=== PATIENT | female | born 1940 | race Caucasian/White ===

== ENCOUNTER → 2017-04-20 | Outpatient (CLI) | payer MEDICARE, OTHER ==
--- NOTE | 2017-04-20 23:11 | MR ---
EXAMINATION TYPE: MR lumbar spine wo/w con DATE OF EXAM: 04/20/2017 COMPARISON: NONE HISTORY: Pain, Disc degeneration TECHNIQUE: Multiplanar, multisequence images of the lumbar spine were acquired utilizing [address] gadolinium contrast. The lumbar vertebra have normal alignment. There is narrowing of disc spaces throughout the lumbar sp ine and more severe at levels from L3 to S1. There is rudimentary S1-S2 disc. There are posterior dis c herniations and disc bulging at L3-4 L4-5. There is a mild lateral recess stenosis at L3-4 and L4-5 . There is also posterior disc bulging at L2-3. There is no compression fracture. There is no lumbar paraspinal mass. The posterior elements appear intact. There is some mild epidural enhancement associ ated with the L5-S1 facet joint on the left side. This is consistent with scarring. There is some lat eral recess stenosis at L5-S1 on the left side and significant neural foraminal impingement. I see no significant impingement on the right side. IMPRESSION: Moderate multilevel spondylosis. There is lateral recess stenosis at L5-S1 and significant neural for aminal impingement on the left side at L5-S1. Epidural scarring and enhancement at L5-S1. No signific ant spinal stenosis.
== END | disposition home or self-care (01) ==
LOC: RADMRIMAIN 14:12
PROVIDERS: ATTEND Internal Medicine Rheumatology
DX: M48.07 Spinal stenosis, lumbosacral region (principal); M47.816 Spondylosis without myelopathy or radiculopathy, lumbar region; M53.87 Other specified dorsopathies, lumbosacral region
CPT/HCPCS: 72158; A9581

== ENCOUNTER → 2017-04-25 | Outpatient (CLI) | payer MEDICARE, OTHER ==
[2017-04-25 13:23] LABS: ALT 20 U/L (9-52); AST 25 U/L (14-36); Creatine Kinase 61 U/L (30-135)
== END | disposition home or self-care (01) ==
LOC: LABWHC1 12:26
PROVIDERS: ATTEND Internal Medicine
DX: E78.5 Hyperlipidemia, unspecified (principal)
CPT/HCPCS: 36415; 82550; 84450; 84460

== ENCOUNTER → 2017-08-11 | Outpatient (CLI) | payer MEDICARE, OTHER ==
--- NOTE | 2017-08-15 10:08 | MM ---
Reason for exam: screening (asymptomatic). Last mammogram was performed 1 year and 3 months ago. History: Patient is postmenopausal. Lumpectomy of the right breast, August 05, 2016. Took unspecified hormones for 1 year. Physical Findings: A clinical breast exam by your physician is recommended on an annual basis and results should be correlated with mammographic findings. MG 3D Screening Mammo W/Cad Bilateral CC and MLO view(s) were taken. Prior study comparison: May 10, 2016, mammogram. There are scattered fibroglandular densities. No significant changes when compared with prior studies. ASSESSMENT: Benign, BI-RAD 2 RECOMMENDATION: Routine screening mammogram of both breasts in 1 year.
== END | disposition home or self-care (01) ==
LOC: RADMAMWWP 10:59
PROVIDERS: ATTEND Surgery
DX: Z12.31 Encounter for screening mammogram for malignant neoplasm of breast (principal)
CPT/HCPCS: 77063; 77067

== ENCOUNTER → 2018-04-05 | Outpatient (CLI) | payer MEDICARE, OTHER ==
[2018-04-05 13:30] LABS: HCT 41.3 % (34.0-46.0); MCHC 31.5 g/dL (31.0-37.0); Mean Platelet Volume 5.8; Platelet Count 399 k/uL (150-450); RBC 4.49 m/uL (3.80-5.40); RDW 13.7 % (11.5-15.5); WBC 12.2 k/uL (3.8-10.6)
[2018-04-05 14:21] LABS: Band Neutrophils % 1 %; Basophils # (M) 0.12 k/uL (0-0.2); Eosinophils # (M) 0.37 k/uL (0-0.7); Lymphocytes # (M) 2.68 k/uL (1.0-4.8); Metamyelocytes # (M) 0.12 k/uL (0); Metamyelocytes % 1 %; Monocytes # (M) 0.61 k/uL (0-1.0); Myelocytes # (M) 0.24 k/uL (0); Myelocytes % 2 %; Neutrophils % (M) 67 %; Nucleated Red Blood Cells 0 /100 WBC (0-0); Total Cells Counted 200
[2018-04-05 17:01] LABS: Albumin/Globulin Ratio 2.11 (1.60-3.17); Calcium 9.2 mg/dL (8.7-10.3); Globulin 1.9 g/dL (1.6-3.3); Potassium 4.5 mmol/L (3.5-5.5); Total Bilirubin 0.5 mg/dL (0.2-1.2); Total Protein 5.9 g/dL (6.2-8.2)
== END | disposition home or self-care (01) ==
LOC: LABWHC1 11:18
PROVIDERS: ATTEND Family Medicine
DX: E11.9 Type 2 diabetes mellitus without complications (principal); I25.10 Atherosclerotic heart disease of native coronary artery without angina pectoris; J18.9 Pneumonia, unspecified organism; E55.9 Vitamin D deficiency, unspecified
CPT/HCPCS: 36415; 80053; 80061; 82043; 82570; 85025

== ENCOUNTER → 2018-04-12 | Outpatient (CLI) | payer MEDICARE, OTHER ==
--- NOTE | 2018-04-12 12:55 | XR ---
EXAMINATION TYPE: XR chest 2V DATE OF EXAM: 04/12/2018 COMPARISON: NONE HISTORY: Pneumonia, follow-up TECHNIQUE: Frontal and lateral views of the chest are obtained. FINDINGS: The patient is rotated. Calcified nodules are present within the right lung. Biapical pleur al thickening is noted. Patient is post median sternotomy. Aorta is dense. Heart size within normal l imits. No evident airspace disease, pneumothorax, or pleural effusion. Surgical clips are present in the upper abdomen. Prominent lung volumes suggest underlying COPD. There are coronary artery calcific ations. IMPRESSION: No acute cardiopulmonary process. Postop changes, coronary artery disease, old granuloma tous disease.
== END ==
LOC: RADXRMAIN 10:49
PROVIDERS: ATTEND Family Medicine
DX: J18.9 Pneumonia, unspecified organism (principal); I25.10 Atherosclerotic heart disease of native coronary artery without angina pectoris
CPT/HCPCS: 71046

== ENCOUNTER → 2018-08-14 | Outpatient (CLI) | payer MEDICARE, OTHER ==
--- NOTE | 2018-08-14 14:35 | MM ---
Reason for exam: additional evaluation requested from prior study. Last mammogram was performed 1 year ago. History: Patient is postmenopausal. Lumpectomy of the right breast, August 05, 2016. Took unspecified hormones for 1 year. Physical Findings: Nurse did not find any significant physical abnormalities on exam. MG 3D Diag Mammo W/Cad [facility] Bilateral CC and MLO view(s) were taken. Prior study comparison: August 11, 2017, bilateral MG 3d screening mammo w/cad. May 10, 2016, mammogram. There are scattered fibroglandular densities. Improving post surgical and post therapy changes in the right breast with a residual oil cyst. No significant new findings when compared with previous films. These results were verbally communicated with the patient and result sheet given to the patient on 08/14/18. ASSESSMENT: Benign, BI-RAD 2 RECOMMENDATION: Follow-up diagnostic mammogram of both breasts in 1 year.
== END | disposition home or self-care (01) ==
LOC: RADMAMWWP 12:52
DX: C50.911 Malignant neoplasm of unspecified site of right female breast (principal)
CPT/HCPCS: 77066; G0279; 77062

== ENCOUNTER → 2018-09-13 | Outpatient (CLI) | payer MEDICARE, OTHER ==
--- NOTE | 2018-09-13 14:18 | BD ---
EXAMINATION TYPE: Axial Bone Density DATE OF EXAM: 09/13/2018 COMPARISON: NONE CLINICAL HISTORY: C 50.911 Height: 5 FT 1 IN Weight: 157 FRAX RISK QUESTIONS: History of Fracture in Adulthood: YES RISK FACTORS HISTORY OF: Family History of Osteoporosis: YES Postmenopausal woman: TOTAL HYST AGE 49 If Premenopausal, do you have irregular periods: Take estrogen and/or progesterone medications: TOOK PREMARIN FOR 16 YEARS NO LONGER Poor Health: FAIR MEDICATIONS: Prednisone or other steroids: How Long: Thyroid Medications: Which medication: How Long: Osteoporosis Medications: Which medication: How Long: Additional Medications: METOPROLOL, POTASSIUM, GABAPENTIN, LOVASTATIN, CLOPIDOGREL, HYDROCHLOROTHIAZI DE,CYCLOBENZAPINE, CYMBALTA, NITROSTAT, METFORMIN, FEMARA, ASPIRIN, FERROUS, SULFATE, STOOL SOFTENER, VIT D3, LOSARTIN, ZETIA, FLUTICASONE, PRESERVISION, VENTOLIN, SYMBICORT, HYDROXYZINE HCL, METHYLPREDN ISOLONE Additional History: BREAST CANCER 2017 NO CHEMO NO RADIATION EXAM MEASUREMENTS: Bone mineral densitometry was performed using the [employer] System. Bone mineral density as measured about the Lumbar spine is: ----- L1-L4(G/cm2): 1.152 T Score Values are as follows: ----- L2: -2.8 ----- L3: 0.9 ----- L4: 3.1 ----- L1-L4: -0.2 PREV DONE IN [place] Bone mineral density about the R hip (g/cm2): 0.765 Bone mineral density about the L hip (g/cm2): 0.709 T Score values are as follows: -----R Neck: -2.0 -----L Neck: -2.4 -----R Total: -1.5 -----L Total: -1.9 PREV [place] IMPRESSION: Osteopenia (T Score between -2.5 and -1). Values approach osteoporosis with regards to the left femor al neck. There is slightly increased risk of fracture and the patient may be considered for treatment. Re-Screen 2-5 years. NOTE: T-SCORE=SD OF THE YOUNG ADULT MEAN.
== END | disposition home or self-care (01) ==
LOC: RADBDWWP 13:00
PROVIDERS: ATTEND Internal Medicine
DX: M85.88 Other specified disorders of bone density and structure, other site (principal); C50.911 Malignant neoplasm of unspecified site of right female breast; Z78.0 Asymptomatic menopausal state
CPT/HCPCS: 77080

== ENCOUNTER → 2018-11-01 | Outpatient (CLI) | payer MEDICARE, OTHER | END | disposition home or self-care (01) | LOC: LABWHC1 13:46 | PROVIDERS: ATTEND Internal Medicine Interventional Cardiology | DX: I71.4 Abdominal aortic aneurysm, without rupture (principal); I25.10 Atherosclerotic heart disease of native coronary artery without angina pectoris; Z88.6 Allergy status to analgesic agent | CPT/HCPCS: 36415; 82565; 84520 ==

== ENCOUNTER → 2018-11-04 | Outpatient (CLI) | payer MEDICARE, OTHER ==
--- NOTE | 2018-11-05 08:46 | CT ---
EXAMINATION TYPE: CT angio thor/abd pel aorta DATE OF EXAM: 11/04/2018 9:03 AM COMPARISON: None HISTORY: AAA CT DLP: 484.40 mGycm Automated exposure control for dose reduction was used. TECHNIQUE: Performed with IV Contrast, patient injected with 100 mL of Isovue 370. 3-D reconstructed images performed on a separate computer by the technologist are presented and revie wed. Source images in the axial plane at 5 mm thick sections from above the lung apex to the lower pe lvis are reviewed.. FINDINGS: CT chest: Emphysematous changes are through the bilateral lung del rosario pressure is 1.3 cm nodule withi n the right upper lobe. There is a 0.8 cm posterior right lower lobe nodule. These contain calcificat ion may be granuloma. Portion of the thyroid visualized is normal. No enlarged mediastinal or hilar a denopathy is evident. The ascending thoracic aorta at the level the main pulmonary artery is 3.5 cm. The pulmonary artery the bifurcation is 2.[address] ABDOMEN: There is mild fatty infiltration liver. There may be 0.6 cm cyst within the anterior righ t lobe liver. A 0.8 cm this may be the anterior left lobe liver. Gallbladder surgically absent. The s pleen at this phase of contrast appears normal. Small hiatal hernia may be present. The adrenal gland s are normal. Pancreas is unremarkable. Loops of bowel without oral contrast appear normal. Fecal debris is through the colon. CT PELVIS: Scattered diverticuli are within the sigmoid colon. Urinary bladder is decompressed with l imited evaluation. Uterus and ovaries are not identified. Aorta: The aorta at the aortic root measures 3.3 cm. The aorta at the main pulmonary artery is 3.5 cm . The aorta at the aortic arch measures 2.7 cm. The aorta at the diaphragm measures 2.4 cm. Just infe rior to the renal arteries there is aneurysmal dilatation of the aorta. This has a maximum AP diamete r of 4.0 cm and extends to the bifurcation. Common iliac internal and external iliac common femoral a rteries are patent and normal. Vascular calcifications throughout the arterial system. IMPRESSION: ABDOMINAL AORTIC ANEURYSM BEGINS IN THE INFRARENAL REGION AND EXTENDS TO THE AORTIC BIFURCATION WITH A MAXIMUM AP DIAMETER 4.0 CM. 2. THERE IS SOME MILD FUSIFORM PROMINENCE OF THE MID ASCENDING THORACIC AORTA MEASURING 3.5 CM IN AP DIMENSION. 3. SUSPECTED CALCIFIED GRANULOMA WITHIN THE RIGHT LUNG. 4. SMALL HEPATIC CYSTS.
== END | disposition home or self-care (01) ==
LOC: RADCTMAIN 07:46
PROVIDERS: ATTEND Internal Medicine Interventional Cardiology
DX: I71.4 Abdominal aortic aneurysm, without rupture (principal); K76.89 Other specified diseases of liver; Z88.6 Allergy status to analgesic agent
CPT/HCPCS: 71275; 74174; Q9967

== ENCOUNTER → 2019-02-15 | Outpatient (CLI) | payer MEDICARE, OTHER ==
[2019-02-15 11:31] LABS: Basophils # (A) 0.1 k/uL (0-0.2); Basophils % (A) 1 %; Eosinophils # (A) 0.3 k/uL (0-0.7); Eosinophils % (A) 5 %; HCT 43.8 % (34.0-46.0); HGB 14.5 gm/dL (11.4-16.0); Lymphocytes # (A) 1.7 k/uL (1.0-4.8); Lymphocytes % (A) 30 %; MCH 29.8 pg (25.0-35.0); MCHC 33.1 g/dL (31.0-37.0); Monocytes # (A) 0.5 k/uL (0-1.0); Monocytes % (A) 8 %; Neutrophils # (A) 3.1 k/uL (1.3-7.7); Neutrophils % (A) 53 %; Platelet Count 193 k/uL (150-450); RBC 4.87 m/uL (3.80-5.40); RDW 13.6 % (11.5-15.5); WBC 5.7 k/uL (3.8-10.6)
[2019-02-15 17:11] LABS: Albumin 4.4 g/dL (3.80-4.90); Albumin/Globulin Ratio 2.44 (1.60-3.17); Anion Gap 6.7 mmol/L (4.00-12.00); Calcium 9.8 mg/dL (8.7-10.3); Carbon Dioxide 31.3 mmol/L (21.6-31.8); Globulin 1.8 g/dL (1.6-3.3); Non-African American GFR(CKD) 62.1 (60.0-200.0); Potassium 4.3 mmol/L (3.5-5.5); Total Bilirubin 0.6 mg/dL (0.2-1.2); Total Protein 6.2 g/dL (6.2-8.2)
[2019-02-15 19:01] LABS: Hemoglobin A1C 6.8 % (4.0-6.0)
== END | disposition home or self-care (01) ==
LOC: LABWHC1 10:26
PROVIDERS: ATTEND Family Medicine
DX: E11.9 Type 2 diabetes mellitus without complications (principal)
CPT/HCPCS: 36415; 80053; 83036; 85025

== ENCOUNTER → 2019-08-21 | Outpatient (CLI) | payer MEDICARE, OTHER ==
--- NOTE | 2019-08-22 11:25 | MM ---
Reason for exam: screening (asymptomatic). Last mammogram was performed 1 year ago. History: Patient is postmenopausal and has history of breast cancer at age 76. Lumpectomy of the right breast, August 05, 2016. Took unspecified hormones for 1 year. Physical Findings: A clinical breast exam by your physician is recommended on an annual basis and results should be correlated with mammographic findings. MG 3D Screening Mammo W/Cad Bilateral CC and MLO view(s) were taken. Prior study comparison: August 14, 2018, bilateral MG 3d diag mammo w/cad [facility]. August 11, 2017, bilateral MG 3d screening mammo w/cad. The breast tissue is heterogeneously dense. This may lower the sensitivity of mammography. There is chronic nodularity in the right breast. No significant changes when compared with prior studies. ASSESSMENT: Benign, BI-RAD 2 RECOMMENDATION: Routine screening mammogram of both breasts in 1 year.
== END | disposition home or self-care (01) ==
LOC: RADMAMWWP 10:48
PROVIDERS: ATTEND Internal Medicine
DX: Z12.31 Encounter for screening mammogram for malignant neoplasm of breast (principal); C50.911 Malignant neoplasm of unspecified site of right female breast
CPT/HCPCS: 77063; 77067

== ENCOUNTER → 2020-04-25 | Outpatient (CLI) | payer MEDICARE, OTHER ==
[2020-04-25 08:06] LABS: African American GFR (CKD) >90 (>60 ml/min/1.73 sqM); Blood Urea Nitrogen 18 mg/dL (7-17); Non-African American GFR(CKD) 84 (>60 ml/min/1.73 sqM)
--- NOTE | 2020-04-27 14:51 | CT ---
EXAMINATION TYPE: CT angio thor/abd pel aorta DATE OF EXAM: 04/25/2020 INDICATION: Aortic aneurysm COMPARISON: 11/04/2018 CT DLP: 372.30 mGycm CONTRAST: Performed without Oral Contrast . Patient injected with 100 mL of Isovue 370. TECHNIQUE: Axial images at 5 mm thick sections. Reconstructed images in the coronal plane. Delayed images through the kidneys. 3-D reconstructed images performed on a separate computer by the technol ogist are reviewed. FINDINGS: CT CHEST: Portion of the thyroid visualized is normal. Some right apical thickening is present in the posterior medial portion. There is a nodule within the right upper lung field measuring 1.4 cm present previously and stable may be a granuloma. A addition al 0.9 cm posterior right lung granuloma with calcifications present. Emphysematous type changes appe ar to be present through the bilateral lung del rosario. No enlarged mediastinal or hilar adenopathy is evident. The ascending aorta diameter at the level of the main pulmonary artery is 3.6 cm. The main pulmonary artery diameter at the bifurcation is 2.7 cm. Coronary artery calcification is likely present. Thoracic aorta at the level of the diaphragms 2.[address] ABDOMEN: Contrast timing is for evaluation of the aorta which causes some limitation on the additi onal evaluation of structures. Liver: Small subcortical cyst may be present. Spleen: Normal Pancreas: Normal Adrenal glands: The adrenal glands are normal. Gallbladder: Vertically absent Kidneys: No masses are evident. No hydronephrosis is present. There is a 2.7 cm cyst in the posteri or right kidney. Aorta: Attention is paid to the aorta. Celiac axis and superior mesenteric artery are patent. The danyel iac axis may have calcification and narrowing present. Consider additional evaluation. Plaque is pres ent at the origin of the superior mesenteric artery. 2 renal arteries are present with atheromatous p laquing at the origins. Obvious stenosis is not evident. 0.5 cm below the renal arteries is the beginning of an abdominal aortic aneurysm. This has a maximum AP diameter of 4.5 cm and terminates at the bifurcation. Common iliac vessels have a normal caliber. Internal and external iliac vessels are patent. Iliac vessels to the common femoral arteries are pat ent. Inferior vena cava: Normal. CT PELVIS: Loops of bowel within the abdomen and pelvis are normal. The study is performed without oral cont rast limiting bowel evaluation. There are scattered diverticuli without acute diverticulitis of the s igmoid colon. Appendix: Not identified. No suspicious dilated tubular structure or inflammatory change is evident. Urinary bladder: Normal. Genitourinary structures: Uterus and ovaries are not identified. Osseous structures: No suspicious lytic or sclerotic lesions. Degenerative disc changes are present w ithin the lumbar spine. IMPRESSIONS: 1. Abdominal aortic aneurysm beginning 0.5 cm below the renal arteries and terminates at the bifurcat ion has a maximum AP diameter 4.5 cm. 2. There appears to be a stenosis at the origin of the celiac axis and some narrowing is suspected at the origin of the superior mesenteric artery. 3. Renal and hepatic cysts. 4. Diverticulosis without acute diverticulitis. 5. Right lung calcified granuloma
== END ==
LOC: RADCTMAIN 07:20
PROVIDERS: ATTEND Internal Medicine Interventional Cardiology
DX: I71.4 Abdominal aortic aneurysm, without rupture (principal); N28.1 Cyst of kidney, acquired; Q44.6 Cystic disease of liver; K57.90 Diverticulosis of intestine, part unspecified, without perforation or abscess without bleeding; J84.10 Pulmonary fibrosis, unspecified
CPT/HCPCS: 82565; 84520; 71275; 36415; 74174; Q9967

== ENCOUNTER → 2020-05-30 | Outpatient (CLI) | payer MEDICARE, OTHER ==
[2020-05-30 16:43] LABS: Basophils # (A) 0.08 X 10*3/uL (0.00-0.10); Basophils % (A) 1.3 %; Eosinophils # (A) 0.17 X 10*3/uL (0.04-0.35); Eosinophils % (A) 2.8 %; HCT 42.9 % (37.2-46.3); HGB 14.2 g/dL (12.0-15.0); Lymphocytes # (A) 1.99 X 10*3/uL (0.90-5.00); Lymphocytes % (A) 32.9 %; MCH 30.1 pg (27.0-32.0); MCHC 33.1 g/dL (32.0-37.0); MCV 90.9 fL (80.0-97.0); Mean Platelet Volume 10.8 fL (9.5-12.2); Monocytes # (A) 0.64 X 10*3/uL (0.20-1.00); Monocytes % (A) 10.6 %; Neutrophils # (A) 3.14 X 10*3/uL (1.80-7.70); Neutrophils % (A) 51.9 %; Platelet Count 182 X 10*3/uL (140-440); RBC 4.72 X 10*6/uL (4.10-5.20); RDW 12.8 % (11.5-14.5); WBC 6.05 X 10*3/uL (4.50-10.00)
[2020-05-31 01:50] LABS: African American GFR (CKD) 71.5 (60.0-200.0); Albumin 4.5 g/dL (3.80-4.90); Albumin/Globulin Ratio 2.14 (1.60-3.17); Anion Gap 17.2 mmol/L (4.00-12.00); Carbon Dioxide 21.8 mmol/L (21.6-31.8); Chol/HDL Ratio 5.43; Globulin 2.1 g/dL (1.6-3.3); Non-African American GFR(CKD) 61.7 (60.0-200.0); Potassium 4.1 mmol/L (3.5-5.5); Total Bilirubin 0.4 mg/dL (0.3-1.2); Total Protein 6.6 g/dL (6.2-8.2)
== END | disposition home or self-care (01) ==
LOC: LABWHC1 08:40
PROVIDERS: ATTEND Family Medicine
DX: E55.9 Vitamin D deficiency, unspecified (principal); I71.4 Abdominal aortic aneurysm, without rupture; I25.10 Atherosclerotic heart disease of native coronary artery without angina pectoris; E11.9 Type 2 diabetes mellitus without complications
CPT/HCPCS: 36415; 80053; 80061; 82306; 83036; 83721; 85025

== ENCOUNTER → 2020-08-21 | Outpatient (CLI) | payer MEDICARE, OTHER ==
--- NOTE | 2020-08-22 12:35 | MM ---
Reason for exam: screening (asymptomatic). Last mammogram was performed 1 year ago. History: Patient is postmenopausal and has history of breast cancer at age 76. Lumpectomy of the right breast, August 05, 2016. Took unspecified hormones for 1 year. Physical Findings: A clinical breast exam by your physician is recommended on an annual basis and results should be correlated with mammographic findings. MG 3D Screening Mammo W/Cad Bilateral CC and MLO view(s) were taken. Prior study comparison: August 21, 2019, bilateral MG 3d screening mammo w/cad. August 14, 2018, bilateral MG 3d diag mammo w/cad [facility]. There are scattered fibroglandular densities. ASSESSMENT: Negative, BI-RAD 1 RECOMMENDATION: Routine screening mammogram of both breasts in 1 year.
== END | disposition home or self-care (01) ==
LOC: RADMAMWWP 10:56
PROVIDERS: ATTEND Internal Medicine
DX: Z12.31 Encounter for screening mammogram for malignant neoplasm of breast (principal); C50.911 Malignant neoplasm of unspecified site of right female breast
CPT/HCPCS: 77063; 77067

== ENCOUNTER → 2020-09-16 | Outpatient (CLI) | payer MEDICARE, OTHER ==
--- NOTE | 2020-09-16 14:37 | BD ---
EXAMINATION TYPE: Axial Bone Density DATE OF EXAM: 09/16/2020 COMPARISON: NONE CLINICAL HISTORY: Postmenopausal female Height: 62.5 Weight: 134.2 FRAX RISK QUESTIONS: Alcohol (3 or more units per day): no Family History (Parent hip fracture): no Glucocorticoids (More than 3mos): no (Ex: prednisone, prednisolone, methylprednisolone, dexamethasone, and hydrocortisone). History of Fracture in Adulthood: yes Secondary Osteoporosis: 1. Type 1 Diabetes: no 2. Hyperthyroidism: no 3. Menopause before 45: no 4. Malnutrition: no 5. Chronic liver disease: no Rheumatoid Arthritis: no Current Tobacco Use: no RISK FACTORS HISTORY OF: Surgery to Spine/Hip(right/left)/Wrist (right/left): no Family History of Osteoporosis: yes Active: no Diet low in dairy products/other sources of calcium: yes Postmenopausal woman: 1990 Lost more than 2 inches in height since high school: yes MEDICATIONS: scanned into pacs Additional History: EXAM MEASUREMENTS: Bone mineral densitometry was performed using the [employer] System. Bone mineral density as measured about the Lumbar spine is: ----- L1-L4(G/cm2): 1.173 T Score Values are as follows: ----- L2: -2.8 ----- L3: 0.8 ----- L4: 3.5 ----- L1-L4: -0.1 Bone mineral density has: increased 0.6 % since study of: 09.13.2018 Bone mineral density about the R hip (g/cm2): 0.761 Bone mineral density about the L hip (g/cm2): 0.696 T Score values are as follows: -----R Neck: -2.0 -----L Neck: -2.5 -----R Total: -1.6 -----L Total: -2.0 Bone mineral density has: decreased -2.0 % since study of: 09.13.2018 IMPRESSION: Osteopenia (T Score between -2.5 and -1). There is slightly increased risk of fracture and the patient may be considered for treatment. Re-Screen 2-5 years. NOTE: T-SCORE=SD OF THE YOUNG ADULT MEAN.
== END | disposition home or self-care (01) ==
LOC: RADBDWWP 10:30
PROVIDERS: ATTEND Internal Medicine
DX: C50.911 Malignant neoplasm of unspecified site of right female breast (principal); M85.80 Other specified disorders of bone density and structure, unspecified site; Z78.0 Asymptomatic menopausal state
CPT/HCPCS: 77080

== ENCOUNTER → 2021-08-24 | Outpatient (CLI) | payer MEDICARE, OTHER ==
--- NOTE | 2021-08-25 11:32 | MM ---
Reason for Exam: Screening (asymptomatic). Last screening mammogram was performed 12 month(s) ago. Patient History: Menarche at age 14. First Full-Term at age 19. Left ovary removed at age 45. Right ovary removed at age 45. Hysterectomy at age 45. Postmenopausal. Breast cancer, right, age 76. 08/05/2016, Lumpectomy on the Right side. Prior Study Comparison: 05/10/2016 Screening Mammogram, Unknown. 08/11/2017 Bilateral Screening Mammogram, [facility]. 08/14/2018 Bilateral Diagnostic Mammogram, [facility]. 08/21/2019 Bilateral Screening Mammogram, [facility]. 08/21/2020 Bilateral Screening Mammogram, [facility]. Tissue Density: The breast tissue is heterogeneously dense. This may lower the sensitivity of mammography. Findings: Analyzed By CAD. There is no suspicious group of microcalcifications or new suspicious mass in either breast. Benign-appearing calcifications noted. Chronic nodularity right breast has a benign appearance. Stable chronic nodularity in the left likely related to a tiny lymph node. Overall Assessment: Benign, BI-RAD 2 Management: Screening Mammogram of both breasts in 1 year. A clinical breast exam by your physician is recommended on an annual basis and results should be correlated with mammographic findings. Electronically signed and approved by: Mark Cannon M.D. Radiologis
== END | disposition home or self-care (01) ==
LOC: RADMAMWWP 10:55
PROVIDERS: ATTEND Internal Medicine
DX: Z12.31 Encounter for screening mammogram for malignant neoplasm of breast (principal); C50.911 Malignant neoplasm of unspecified site of right female breast; Z17.0 Estrogen receptor positive status [ER+]
CPT/HCPCS: 77063; 77067

== ENCOUNTER → 2021-11-10 | Outpatient (CLI) | payer MEDICARE, OTHER ==
[2021-11-10 16:11] LABS: Basophils # (A) 0.05 X 10*3/uL (0.00-0.10); Basophils % (A) 0.8 %; Eosinophils # (A) 0.15 X 10*3/uL (0.04-0.35); Eosinophils % (A) 2.5 %; HCT 39.5 % (37.2-46.3); HGB 13.5 g/dL (12.0-15.0); Immature Grans, Automated 0.3 %; Lymphocytes # (A) 1.82 X 10*3/uL (0.90-5.00); Lymphocytes % (A) 30.2 %; MCH 29.9 pg (27.0-32.0); MCHC 34.2 g/dL (32.0-37.0); MCV 87.6 fL (80.0-97.0); Mean Platelet Volume 10.6 fL (9.5-12.2); Monocytes # (A) 0.77 X 10*3/uL (0.20-1.00); Monocytes % (A) 12.8 %; NRBC Per 100 WBC 0 /100 WBCS (0.0-0.0); Neutrophils # (A) 3.22 X 10*3/uL (1.80-7.70); Neutrophils % (A) 53.4 %; Platelet Count 227 X 10*3/uL (140-440); RBC 4.51 X 10*6/uL (4.10-5.20); WBC 6.03 X 10*3/uL (4.50-10.00)
[2021-11-10 16:38] LABS: ALT 20 U/L (8-44); AST 35 U/L (13-35); African American GFR (CKD) 58.5 (60.0-200.0); Albumin 4.7 g/dL (3.8-4.9); Albumin/Globulin Ratio 2.02 (1.60-3.17); Alkaline Phosphatase 138 U/L (41-126); BUN/Creat Ratio 19.52 Ratio (12.00-20.00); Blood Urea Nitrogen 20.5 mg/dL (9.0-27.0); Calcium 10.3 mg/dL (8.7-10.3); Carbon Dioxide 26.9 mmol/L (20.0-27.5); Chloride 102 mmol/L (96-109); Globulin 2.3 g/dL (1.6-3.3); Glucose 113 mg/dL (70-110); Non-African American GFR(CKD) 50.5 (60.0-200.0); Potassium 3.9 mmol/L (3.5-5.5); Sodium 143 mmol/L (135-145); Total Bilirubin <0.15 mg/dL (0.30-1.20)
== END | disposition home or self-care (01) ==
LOC: LABWHC1 09:12
PROVIDERS: ATTEND Internal Medicine
DX: E11.9 Type 2 diabetes mellitus without complications (principal)
CPT/HCPCS: 36415; 80053; 83036; 84443; 85025

== ENCOUNTER → 2022-05-04 | Outpatient (CLI) | payer MEDICARE, OTHER ==
--- NOTE | 2022-05-04 17:21 | CT ---
EXAMINATION TYPE: CT orbits w con DATE OF EXAM: 05/04/2022 COMPARISON: None HISTORY: redness, swelling of face just underneath the eye- left side CT DLP: 365.1 mGycm Automated exposure control for dose reduction was used. CONTRAST: Performed with IV Contrast, patient injected with 60ml mL of Isovue 300. Images obtained from the bottom of the maxilla to the top of the frontal sinuses with the IV contrast . The maxilla is intact. No evidence of orbital blowout fracture. Orbital margins are intact. No eviden ce of retro-orbital mass. There is mild subcutaneous edema over the lateral aspect of the left orbit. The globes are symmetric. Nasal bone is intact. There is fairly normal aeration of the paranasal sin uses. There is no pathologic enhancement. IMPRESSION: Soft tissue swelling lateral to the left orbit. Subcutaneous edema anterior and lateral to the left z ygoma. No drainable fluid collection.
== END | disposition home or self-care (01) ==
LOC: RADCTMAIN 15:46
PROVIDERS: ATTEND Internal Medicine
DX: L03.211 Cellulitis of face (principal); R60.0 Localized edema
CPT/HCPCS: 82565; 84520; 70481; 36415; Q9967

== ENCOUNTER → 2022-06-22 | Outpatient (CLI) | payer MEDICARE, OTHER ==
[2022-06-22 11:05] LABS: African American GFR (CKD) 57 (>60 ml/min/1.73 sqM); Anion Gap 9 mmol/L; Blood Urea Nitrogen 28 mg/dL (7-17); Calcium 9.9 mg/dL (8.4-10.2); Carbon Dioxide 34 mmol/L (22-30); Chloride 98 mmol/L (98-107); Glucose 100 mg/dL (74-99); Non-African American GFR(CKD) 50 (>60 ml/min/1.73 sqM); Potassium 4.2 mmol/L (3.5-5.1); Sodium 141 mmol/L (137-145)
--- NOTE | 2022-06-22 18:01 | CT ---
EXAMINATION TYPE: CT angio thor/abd pel aorta DATE OF EXAM: 06/22/2022 COMPARISON: 04/25/2020 HISTORY: abdominal aortic aneurysm without rupture CT DLP: 612.3 mGycm, Automated exposure control for dose reduction was used. CONTRAST: Performed injected with 80 mL of Isovue 370. TECHNIQUE: Axial images were obtained at 5 mm thick sections. Reconstructed images are reviewed on [facility] computer in the coronal plane. FINDINGS: Portion of the thyroid visualized is normal. There is a 1.2 cm nodule with internal calcification right upper lobe may be a calcified granuloma. T his is stable from the comparison. Calcified granulomas within the posterior right lung base present previously emphysematous changes are present. No enlarged mediastinal or hilar adenopathy is evident. The ascending aorta diameter at the level o f the main pulmonary artery is 3.5 cm. The main pulmonary artery diameter at the bifurcation is 2.7 cm. Faster calcifications within the aorta. The aorta tapers to its visualized course within the thor ax0. No dissection is evident. CT ABDOMEN: There is an infrarenal abdominal aortic aneurysm with the greatest AP diameter of 4.9 cm. This termin ates above the bifurcation. Common iliac arteries internal and external iliac arteries are patent. Liver: Normal Spleen: Normal Pancreas: Normal Adrenal glands: The adrenal glands are normal. Gallbladder: Normal Kidneys: No masses are evident. No hydronephrosis is present. There is a 3.4 cm cyst right upper po le kidney Inferior vena cava: Normal. Loops of bowel within the abdomen and visualized pelvis are normal. This study is without oral co ntrast. IMPRESSIONS: 1. Increasing size Abdominal aortic aneurysm begins just below the right renal artery with a minute greatest AP dimension of 4.9 cm, previous measurement 4.5 cm. This terminates above the bifurcation.
== END | disposition home or self-care (01) ==
LOC: RADCTMAIN 10:19
PROVIDERS: ATTEND Internal Medicine Interventional Cardiology
DX: I71.40 Abdominal aortic aneurysm, without rupture, unspecified (principal); I10 Essential (primary) hypertension; E11.9 Type 2 diabetes mellitus without complications
CPT/HCPCS: 80048; 71275; 36415; 74174; Q9967

== ENCOUNTER → 2022-08-25 | Outpatient (CLI) | payer MEDICARE, OTHER ==
--- NOTE | 2022-08-26 08:35 | MM ---
Reason for Exam: Screening (asymptomatic). Last screening mammogram was performed 12 month(s) ago. Patient History: Menarche at age 14. First Full-Term at age 19. Left ovary removed at age 45. Right ovary removed at age 45. Hysterectomy at age 45. Postmenopausal. Breast cancer, right, age 76. 08/05/2016, Lumpectomy on the Right side. Prior Study Comparison: 08/21/2019 Bilateral Screening Mammogram, [facility]. 08/21/2020 Bilateral Screening Mammogram, [facility]. 08/24/2021 Bilateral MG 3D screening mammo w/cad, [facility]. Tissue Density: The breast tissue is heterogeneously dense. This may lower the sensitivity of mammography. Findings: Analyzed By CAD. There is no suspicious group of microcalcifications or new suspicious mass in either breast. Overall Assessment: Benign, BI-RAD 2 Management: Screening Mammogram of both breasts in 1 year. . Patient should continue monthly self-breast exams. A clinical breast exam by your physician is recommended on an annual basis. This exam should not preclude additional follow-up of suspicious palpable abnormalities. Note on Liza scores and lifetime risk: 1. A Liza score greater than 3% is considered moderate risk. If this is the case, consider specialist referral to assess eligibility for a risk reducing agent. 2. If overall lifetime risk for the development of breast cancer is 20% or higher, the patient may qualify for future screening with alternating mammogram and breast MRI. Electronically signed and approved by: Reilly Vidal M.D. Radiologis
== END | disposition home or self-care (01) ==
LOC: RADMAMWWP 10:51
PROVIDERS: ATTEND Internal Medicine
DX: Z12.31 Encounter for screening mammogram for malignant neoplasm of breast (principal); Z78.0 Asymptomatic menopausal state
CPT/HCPCS: 77063; 77067

== ENCOUNTER → 2022-12-24 | Outpatient (CLI) | payer MEDICARE, OTHER ==
[2022-12-24 14:09] LABS: African American GFR (CKD) 62 (>60 ml/min/1.73 sqM); Anion Gap 11 mmol/L; Blood Urea Nitrogen 35 mg/dL (7-17); Carbon Dioxide 32 mmol/L (22-30); Chloride 98 mmol/L (98-107); Glucose 92 mg/dL (74-99); Non-African American GFR(CKD) 54 (>60 ml/min/1.73 sqM); Potassium 3.5 mmol/L (3.5-5.1); Sodium 141 mmol/L (137-145)
--- NOTE | 2022-12-24 19:26 | CT ---
EXAMINATION TYPE: CT angio thor/abd DATE OF EXAM: 12/24/2022 COMPARISON: 06/22/2022 HISTORY: 82-year-old female I71.20 THORACIC AORTIC ANEURYSM TECHNIQUE: Contiguous axial scanning of the chest and abdomen following administration of 80 ml Isovu e 370 IV contrast. Coronal/sagittal reconstructions performed. 3-D reconstructions generated on a de dicated independent workstation. CT DLP: 514.3 mGycm Automated exposure control for dose reduction was used. FINDINGS: CHEST: Median sternotomy wires are present with post-CABG clips. Heart normal size without pericardial effusion. Calcified lower right paratracheal and right hilar lymph nodes compatible with prior granulomatous di sease. No thoracic lymphadenopathy by CT size criteria. There is moderate to advanced emphysematous change throughout the lungs. A couple benign calcified gr anulomas on the right. Biapical pleural-parenchymal scarring. No consolidation or pleural effusion. VASCULATURE: Aortic root is normal caliber at 3.1 cm. Ascending aorta ectatic and 3.7 cm, unchanged. Moderate atherosclerotic arch calcifications with conventional arch vessel branching anatomy. Upper descending thoracic aorta 2.8 cm, normal caliber. Ectatic lower descending thoracic aorta up to 2.8 cm, unchanged. There is a small sensory right renal artery. Saunders left renal artery. Fusiform infrarenal abdominal aortic aneurysm measuring 5.8 x 5.1 cm versus 5.7 x 4.9 cm on the recen t prior. There is mild left-sided narrowing at the origin of the celiac axis, SMA, and bilateral renal arterie s. ABDOMEN: Noncontrast and arterial phase imaging of the abdomen shows a couple hypodense lesions measuring up t o 9 mm. These are unchanged and likely represent cysts. Cholecystectomy clips. Adrenal glands, spleen, and pancreas appear within normal limits. There is a 3.2 cm cyst of the lower pole right kidney redemonstrated. Either left-sided pelviectasis or an underlying parapelvic cyst measuring 2.7 cm is unchanged. No dilated small bowel, free fluid, or free air. There is moderate stool burden. No pericolonic infla mmatory change. Pelvis not imaged. BONES: Advanced degenerative changes throughout the lumbar spine. Accentuated mid thoracic kyphosis and mode rate degenerative disc disease. IMPRESSION: 1. Infrarenal AAA stable to minimally larger at 5.8 x 5.1 cm (versus 5.7 x 4.9 cm on the patient's re cent prior). 2. COPD with moderate to advanced emphysema. Evidence of prior granulomatous disease. 3. Moderate to advanced spondylotic change throughout the visualized spine.
== END | disposition home or self-care (01) ==
LOC: RADCTMAIN 13:24
PROVIDERS: ATTEND Internal Medicine Interventional Cardiology
DX: I71.40 Abdominal aortic aneurysm, without rupture, unspecified (principal); J43.9 Emphysema, unspecified; M47.814 Spondylosis without myelopathy or radiculopathy, thoracic region
CPT/HCPCS: 80048; 71275; 74175; 36415; Q9967

== ENCOUNTER → 2023-01-10 | Outpatient (CLI) | payer MEDICARE, OTHER ==
--- NOTE | 2023-01-10 14:28 | XR ---
EXAMINATION TYPE: XR elbow complete LT DATE OF EXAM: 01/10/2023 COMPARISON: NONE HISTORY: Fall pain FINDINGS: Three views of the elbow demonstrate no pathologic joint effusion. The osseous structures are intact . There is no acute fracture or dislocation. IMPRESSION: 1. No acute fracture or dislocation. If symptoms persist follow-up study in 7 to 10 days could be ob tained.
--- NOTE | 2023-01-10 14:29 | XR ---
EXAMINATION TYPE: XR forearm LT DATE OF EXAM: 01/10/2023 COMPARISON: NONE HISTORY: Pain Two views of the forearm demonstrate that the osseous structures appear to be intact and the joint sp aces appear to be preserved. There is no acute fracture or dislocation. Benign cystic geode of the lunate. Narrowing in the radiocarpal joint. Mild osteopenia IMPRESSION: 1. No acute fracture or dislocation
--- NOTE | 2023-01-10 14:30 | XR ---
EXAMINATION TYPE: XR humerus LT DATE OF EXAM: 01/10/2023 COMPARISON: NONE HISTORY: Pain TECHNIQUE: 2 views submitted. FINDINGS: The osseous structures are intact and the joint spaces are preserved. Diffuse osteopenia. IMPRESSION: 1. No acute fracture or dislocation.
--- NOTE | 2023-01-10 14:35 | XR ---
EXAMINATION TYPE: XR ribs LT w pa chest xray DATE OF EXAM: 01/10/2023 CLINICAL HISTORY: Pain TECHNIQUE: Single frontal view of the chest and 4 views of the left ribs is obtained. COMPARISON: None FINDINGS: There is no focal air space opacity, pleural effusion, or pneumothorax seen. The cardiac silhouette size is within normal limits. The osseous structures are intact. Median sternotomy mar es seen. There is a calcified granuloma. Atherosclerotic change aorta. Underlying COPD. Apical pleura l thickening. Coronary stenting suggested. Surgical clips in the gallbladder fossa. Hypertrophic and degenerative changes in the spine. Median sternotomy changes seen. Surgical clips along the lateral m argin of the right chest wall. There is a cortical step-off involving the anterior margin of the left eighth rib. Diffuse deminerali zation. IMPRESSION: Findings suggestive of a mildly displaced fracture anterior left eighth rib..
--- NOTE | 2023-01-10 14:37 | XR ---
EXAMINATION TYPE: XR Hip Complete LT DATE OF EXAM: 01/10/2023 COMPARISON: NONE HISTORY: Pain TECHNIQUE: 2 views submitted FINDINGS: There is no evidence of erosive change or acute fracture. Diffuse osteopenia. Vacuum change in the SI joint. Surgical clip in the pelvis. Vascular phleboliths noted. Mild arthropathy of the hip. IMPRESSION: 1. No evidence of acute fracture or dislocation. Given the degree of osteopenia if there is a difficu lty with weightbearing or high clinical suspicion for fracture then correlate with CT scan.
== END | disposition home or self-care (01) ==
LOC: RADXRMAIN 13:35
PROVIDERS: ATTEND Internal Medicine
DX: M85.852 Other specified disorders of bone density and structure, left thigh (principal); M25.522 Pain in left elbow; M79.632 Pain in left forearm; M79.622 Pain in left upper arm; R07.81 Pleurodynia; W19.XXXA Unspecified fall, initial encounter
CPT/HCPCS: 73502

== ENCOUNTER → 2023-01-18 | Outpatient (CLI) | payer MEDICARE, OTHER ==
[2023-01-18 15:38] LABS: Basophils # (A) 0.06 X 10*3/uL (0.00-0.10); Eosinophils # (A) 0.22 X 10*3/uL (0.04-0.35); Eosinophils % (A) 3.8 %; HGB 12.8 g/dL (12.0-15.0); Lymphocytes # (A) 1.75 X 10*3/uL (0.90-5.00); Lymphocytes % (A) 30.5 %; MCH 30.3 pg (27.0-32.0); MCHC 32.8 g/dL (32.0-37.0); MCV 92.4 FL (80.0-97.0); Mean Platelet Volume 10.2 FL (9.5-12.2); Monocytes # (A) 0.83 X 10*3/uL (0.20-1.00); Monocytes % (A) 14.5 %; NRBC Per 100 WBC 0 X 10*3/uL (0.00-0.01); Neutrophils # (A) 2.85 X 10*3/uL (1.80-7.70); Neutrophils % (A) 49.9 %; Platelet Count 236 X 10*3/uL (140-440); RBC 4.22 X 10*6/uL (4.10-5.20); RDW 14.4 % (11.5-14.5); WBC 5.73 X 10*3/uL (4.50-10.00)
== END | disposition home or self-care (01) ==
LOC: LABWHC1 11:00
PROVIDERS: ATTEND Internal Medicine
DX: E11.9 Type 2 diabetes mellitus without complications (principal)
CPT/HCPCS: 36415; 83036; 85025

== ENCOUNTER → 2023-01-21 | Outpatient (CLI) | payer MEDICARE, OTHER ==
--- NOTE | 2023-01-21 15:48 | US ---
EXAMINATION TYPE: US kidneys/renal and bladder DATE OF EXAM: 01/21/2023 COMPARISON: 06/22/2022 CLINICAL INDICATION: Female, 82 years old with history of N18.30 CHRONIC KIDNEY DISEASE, STAGE 3 UNSP ECIFIED; HTN; DM; Former smoker x 20 years; Known AAA EXAM MEASUREMENTS: Right Kidney: 9.2 x 4.0 x 4.2 cm Left Kidney: 9.4 x 3.9 x 4.0 cm Post Void Residual Volume: N/A mL Right Kidney: [place] Seen; Cyst = 3.3 x 3.1 x 3.3 cm Left Kidney: [place] Bladder: wnl Bilateral Jets seen: Yes Normal Post Void Residual: NA No nephrolithiasis is seen. The urinary bladder is anechoic. Bilateral ureteral jets are seen. AAA = 8.0 x 4.7 x 6.1 cm , previously measuring up to 5.1 x 5.8 cm. IMPRESSION: 1. Mild increase in size of Abdominal aortic aneurysm measuring up to 6.1 cm. Vascular surgical cons ultation recommended. 2. Mild bilateral hydronephrosis. 3. Right renal cyst.
== END | disposition home or self-care (01) ==
LOC: RADUSWWP 14:08
PROVIDERS: ATTEND Internal Medicine
DX: N28.1 Cyst of kidney, acquired (principal); I71.40 Abdominal aortic aneurysm, without rupture, unspecified; I12.9 Hypertensive chronic kidney disease with stage 1 through stage 4 chronic kidney disease, or unspecified chronic kidney disease; E11.22 Type 2 diabetes mellitus with diabetic chronic kidney disease; N18.30 Chronic kidney disease, stage 3 unspecified; N13.30 Unspecified hydronephrosis
CPT/HCPCS: 76770

== ENCOUNTER → 2023-02-10 | Outpatient (CLI) | payer MEDICARE, OTHER ==
--- NOTE | 2023-02-10 23:51 | BD ---
EXAMINATION TYPE: Axial Bone Density DATE OF EXAM: 02/10/2023 CLINICAL HISTORY: 82 years old Female. ICD-10 CODE: Z78.0 ASYMPTOMATIC MENOPAUSAL STATE Height: 60.5 Weight: 127.9 FRAX RISK QUESTIONS: Alcohol (3 or more units per day): no Family History (Parent hip fracture): no Glucocorticoids (More than 3mos): no History of Fracture in Adulthood: Ribs Secondary Osteoporosis: 1. Type 1 Diabetes: no 2. Hyperthyroidism: no 3. Menopause before 45: no 4. Malnutrition: no 5. Chronic liver disease: no Rheumatoid Arthritis: no Current Tobacco Use: no RISK FACTORS HISTORY OF: Hip Fracture (Right/Left): no Spine Fracture: no History of Wrist Fracture: no Surgery to Spine/Hip(right/left)/Wrist (right/left): no Family History of Osteoporosis: Mother Active: no Diet low in dairy products/other sources of calcium: no Postmenopausal woman: yes Take estrogen and/or progesterone medications: no Lost more than 2 inches in height since high school: no Frequent falls: yes Poor Health: no Hyperparathyroidism: no Adrenal Insufficiency: no MEDICATIONS: Prednisone or other steroids: no Thyroid Medications: no Osteoporosis Medications:no Additional Medications: BP Meds x2, Cholesterol Meds, Reflux Meds, Metformin, Vit D, Multi Vit., Pota ssium, Additional History: Breast Ca., 2017 EXAM MEASUREMENTS: Bone mineral densitometry was performed using the [facility] System. Bone mineral density as measured about the Lumbar spine is: ----- L1-L4(G/cm2): 1.094 T Score Values are as follows: ----- L1: -3.0 ----- L2: -2.6 ----- L3: 0.5 ----- L4: 1.7 ----- L1-L4: -0.7 Z Score Values are as follows: ----- L1: -0.9 ----- L2: -0.5 ----- L3: 2.6 ----- L4: 3.8 ----- L1-L4: 1.40 Bone mineral density has: decreased -6.7% since study of: 09/16/2020 Bone mineral density about the R hip (g/cm2): 0.713 Bone mineral density about the L hip (g/cm2): 0.685 T Score values are as follows: -----R Neck: -2.4 -----L Neck: -2.6 -----R Total: -2.3 -----L Total: -2.6 Z Score values are as follows: -----R Neck: -0.1 -----L Neck: -0.3 -----R Total: -0.1 -----L Total: -0.4 Bone mineral density has: decreased -10.2 % since study of: 09/16/2020 FRAX%s: The graph provided illustrates a 29.3% chance for a major osteoporotic fx and a 10.2% chance for the hips probability for fx in 10 years time. IMPRESSION: Osteoporosis (T Score less than -2.5). There is increased fracture risk and therapy is usually indicated based on age. Re-Screen 1-2 years. NOTE: T-SCORE=SD OF THE YOUNG ADULT MEAN.
== END | disposition home or self-care (01) ==
LOC: RADBDWWP 10:41
PROVIDERS: ATTEND Internal Medicine
DX: Z13.820 Encounter for screening for osteoporosis (principal); M81.0 Age-related osteoporosis without current pathological fracture; M85.851 Other specified disorders of bone density and structure, right thigh; Z78.0 Asymptomatic menopausal state
CPT/HCPCS: 77080

== ENCOUNTER 2023-08-17 13:45 | Inpatient (IN) | payer MEDICARE, OTHER ==
--- NOTE | 2023-08-17 13:56 | ED ---
GI Bleed HPI - General Source: patient, family, RN notes reviewed Mode of arrival: ambulatory Limitations: no limitations <Nery Rico - Last Filed: 08/17/23 13:55> <Trae Krueger - Last Filed: 08/17/23 19:15> - General Stated complaint: GI bleed Time Seen by Provider: 08/17/23 13:55 - History of Present Illness Initial comments: Quick note: 83-year-old female presented to the ER with a chief complaint of rectal bleeding. Patient states yesterday she noticed her stool was black in color. She does endorse mild abdominal pain. She does have a history of esophageal irritation/bleeding. Family reports she underwent a AAA repair on June 13. Patient is currently taking baby aspirin and Plavix daily. (Bakari Rico) 83 yo female presenting with dark stool, prior history of esophagitis and upper GI bleed. Patient had recent abdominal aortic aneurysm repair and has a known endoleak which is scheduled for repair with her vascular surgeon. She is currently on aspirin and Plavix. (Trae Krueger) - Related Data Home Medications Medication Instructions Recorded Confirmed Albuterol Sulfate [Ventolin HFA] 2 puff INHALATION RT-Q4H PRN 08/17/23 08/17/23 Ascorbic Acid [Vitamin C] 1,000 mg PO DAILY 08/17/23 08/17/23 Aspirin EC [Ecotrin Low Dose] 81 mg PO DAILY 08/17/23 08/17/23 Budesonide/Formoterol Fumarate 2 puff INHALATION RT-BID 08/17/23 08/17/23 [Symbicort 160-4.5 Mcg Inhaler] Clopidogrel [Plavix] 75 mg PO DAILY 08/17/23 08/17/23 DULoxetine HCL [Cymbalta] 60 mg PO DAILY 08/17/23 08/17/23 Ergocalciferol (Vitamin D2) 1,250 mcg PO Q14D 08/17/23 08/17/23 [Drisdol (50,000 Iu)] Ferrous Sulfate [Slow Release Iron] 140 mg PO DAILY 08/17/23 08/17/23 Fluticasone Nasal [place] [Flonase 2 spray EA NOSTRIL DAILY 08/17/23 08/17/23 Nasal [place]] Gabapentin 600 mg PO DAILY 08/17/23 08/17/23 Ipratropium Otto 0.06%Nasal 2 spray EA NOSTRIL TID 08/17/23 08/17/23 [Atrovent Nasal 0.06%] Krill/Om-3/Dha/Epa/Phospho/Ast 1 cap PO DAILY 08/17/23 08/17/23 [[place]-3 Krill Oil 300 mg Sfgl] Loratadine [Claritin] 10 mg PO DAILY 08/17/23 08/17/23 Losartan [Cozaar] 50 mg PO DAILY 08/17/23 08/17/23 Lovastatin [Mevacor] 80 mg PO HS 08/17/23 08/17/23 Metoprolol Tartrate [Lopressor] 50 mg PO BID 08/17/23 08/17/23 Nitroglycerin Sl Tabs [Nitrostat] 0.4 mg SUBLINGUAL Q5M PRN 08/17/23 08/17/23 Pantoprazole [Protonix] 40 mg PO DAILY 08/17/23 08/17/23 Potassium Chloride ER [K-Dur 20] 20 meq PO DAILY 08/17/23 08/17/23 Propylene Glycol/Peg 400/Pf 1 drop BOTH EYES QID PRN 08/17/23 08/17/23 [Systane 0.3-0.4% Ophth Dropperette] Vit C/E/Zn/Coppr/Lutein/Zeaxan 1 cap PO BID 08/17/23 08/17/23 [Preservision Areds 2 Softgel] Vitamin B Complex 1 cap PO DAILY 08/17/23 08/17/23 gemfibroziL [Lopid] 600 mg PO BID-W/MEALS 08/17/23 08/17/23 hydrOXYzine HCL [Atarax] 25 - 50 mg PO HS PRN 08/17/23 08/17/23 hydroCHLOROthiazide 12.5 mg PO DAILY 08/17/23 08/17/23 metFORMIN HCL [Glucophage] 500 mg PO BID-W/MEALS 08/17/23 08/17/23 Allergies Allergy/AdvReac Type Severity Reaction Status Date / Time Sulfa (Sulfonamide Allergy Unknown Verified 08/17/23 18:18 Antibiotics) sulfacetamide Allergy Unknown Verified 08/17/23 18:18 [From Sulfamide] Tetracyclines Allergy Unknown Verified 08/17/23 18:18 tramadol Allergy Itching Verified 08/17/23 18:18 Review of Systems ROS Other: All systems not noted in ROS Statement are negative. <Nery Rico - Last Filed: 08/17/23 13:55> ROS Other: All systems not noted in ROS Statement are negative. <Trae Krueger - Last Filed: 08/17/23 19:15> ROS Statement: Those systems with pertinent positive or pertinent negative responses have been documented in the HPI. General Exam <Nery Rico - Last Filed: 08/17/23 13:55> General appearance: alert, in no apparent distress Head exam: Present: atraumatic, normocephalic Eye exam: Present: normal appearance, PERRL ENT exam: Present: normal exam Neck exam: Present: normal inspection. Absent: tenderness, meningismus Respiratory exam: Present: normal lung sounds bilaterally. Absent: respiratory distress, wheezes Cardiovascular Exam: Present: regular rate, normal rhythm GI/Abdominal exam: Present: soft, distended. Absent: tenderness Rectal exam: Present: black stool Neurological exam: Present: alert, oriented X3 Psychiatric exam: Present: normal affect, normal mood Skin exam: Present: pallor <Trae Krueger - Last Filed: 08/17/23 19:15> - General Exam Comments Initial Comments: Visual Physical Exam Vital signs reviewed General: Well-appearing, nontoxic, no acute distress. Head: Normocephalic, atraumatic Eyes: PERRLA, EOMI ENT: Airway patent Chest: Nonlabored breathing Skin: No visual rash, normal skin tone Neuro: Alert and oriented 3 Musculoskeletal: No gross abnormalities (Nery Rico) Course Vital Signs 08/17/23 08/17/23 08/17/23 13:51 16:44 17:02 Temperature 97.4 F L 98.2 F Pulse Rate 90 80 80 Respiratory 18 18 16 Rate Blood Pressure 139/73 155/88 149/64 O2 Sat by Pulse 96 94 L Oximetry 08/17/23 18:23 Temperature 97.6 F Pulse Rate 89 Respiratory 17 Rate Blood Pressure 150/68 O2 Sat by Pulse 97 Oximetry Medical Decision Making <Nery Rico - Last Filed: 08/17/23 13:55> - Lab Data Result diagrams: 08/17/23 14:37 08/17/23 14:37 <Trae Krueger - Last Filed: 08/17/23 19:15> - Medical Decision Making I performed the quick note portion of this chart. Electronically signed by Nery Rico PA-C (Nery Rico) Was pt. sent in by a medical professional or institution ([facility], [employer], urgent care, hospital, or care home...) When possible be specific @ -No Did you speak to anyone other than the patient for history (EMS, parent, family, police, friend...)? What history was obtained from this source @ -No Did you review nursing and triage notes (agree or disagree)? Why? @ -I reviewed and agree with nursing and triage notes Were old charts reviewed (outside hosp., previous admission, EMS record, old EKG, old radiological studies, urgent care reports/EKG's, care home records)? Report findings @ -No old charts were reviewed Differential Abdominal Pain Men: Appendicitis, cholecystitis, diverticulosis, ischemic bowel, pancreatitis, hepatitis, UTI, gastroenteritis, AAA, incarcerated hernia, bowel obstruction, constipation, inflammatory bowel, hepatitis, peptic ulcer disease, splenic infarction, perforated viscus, testicular torsion, this is not meant to be an all-inclusive list EKG interpreted by me (3pts min.). @Sinus rhythm with PVC rate of 76, IN interval 121, QRS duration 85, QTc [address] segment elevation. X-rays interpreted by me (1pt min.). @ -None done CT interpreted by me (1pt min.). @CT abdomen pelvis, angiogram showing a small endoleak. This was reviewed with the radiologist Dr. Rodriguez. Patient has known endoleak, and is scheduled for repair. I do not believe this is a contributing factor to her presentation. U/S interpreted by me (1pt. min.). @ -None done What testing was considered but not performed or refused? (CT, X-rays, U/S, labs)? Why? @ -None What meds were considered but not given or refused? Why? @ -None Did you discuss the management of the patient with other professionals (professionals i.e. [facility], [employer], lab, RT, psych nurse, 7th grade social studies teacher, die reamer, teacher, railroad police officer, family independence case manager)? Give summary @ -Dr. Hardin who will admit Was smoking cessation discussed for >3mins.? @ -No Was critical care preformed (if so, how long)? @ -yes 35 min Were there social determinants of health that impacted care today? How? (Homelessness, low income, unemployed, alcoholism, drug addiction, transportation, low edu. Level, literacy, decrease access to med. care, fpc, rehab)? @ -No Was there de-escalation of care discussed even if they declined (Discuss DNR or withdrawal of care, Hospice)? DNR status @ -No What co-morbidities impacted this encounter? (DM, HTN, Smoking, COPD, CAD, Cancer, CVA, ARF, Chemo, Hep., AIDS, mental health diagnosis, sleep apnea, morbid obesity)? @ -[On aspirin and Plavix. Was patient admitted / discharged? Hospital course, mention meds given and route, prescriptions, significant lab abnormalities, going to OR and other pertinent info. @ -83 yo female presenting for evaluation of dark stool. Patient has melanotic stool on exam. Hemodynamics are stable. I did perform imaging of the abdomen and aorta due to recent abdominal aortic aneurysm repair with known endoleak. Globin is 7.6 with no recent for comparison. Patient started on Protonix. She will be admitted for GI evaluation and serial hemoglobin. Undiagnosed new problem with uncertain prognosis? @ -No Drug Therapy requiring intensive monitoring for toxicity (Heparin, Nitro, Insulin, Cardizem)? @ -No Were any procedures done? @ -No Diagnosis/symptom? @upper GI bleed, anemia Acute, or Chronic, or Acute on Chronic? @ -acute Uncomplicated (without systemic symptoms) or Complicated (systemic symptoms)? @ -Default Side effects of treatment? @ -No Exacerbation, Progression, or Severe Exacerbation? @ -No Poses a threat to life or bodily function? How? (Chest pain, USA, ID, pneumonia, PE, COPD, DKA, ARF, appy, cholecystitis, CVA, Diverticulitis, Homicidal, Suicidal, threat to staff... and all critical care pts) @ -yes, GI bleed, hemorrhagic shock (Trae Krueger) - Lab Data Lab Results 08/17/23 08/17/23 08/17/23 Range/Units 14:37 14:37 14:37 WBC 6.2 (3.8-10.6) k/uL RBC 2.28 L (3.80-5.40) m/uL Hgb 7.6 L (11.4-16.0) gm/dL Hct 23.6 L (34.0-46.0) % MCV 103.2 H (80.0-100.0) fL MCH 33.4 (25.0-35.0) pg MCHC 32.3 (31.0-37.0) g/dL RDW 15.3 (11.5-15.5) % Plt Count 221 (150-450) k/uL MPV 7.8 Neutrophils % 68 % Lymphocytes % 17 % Monocytes % 8 % Eosinophils % 4 % Basophils % 1 % Neutrophils # 4.2 (1.3-7.7) k/uL Lymphocytes # 1.1 (1.0-4.8) k/uL Monocytes # 0.5 (0-1.0) k/uL Eosinophils # 0.3 (0-0.7) k/uL Basophils # 0.0 (0-0.2) k/uL Hypochromasia Slight Macrocytosis Slight PT 10.5 (10.0-12.5) sec INR 0.9 (<1.2) APTT 23.6 (22.0-30.0) sec Sodium 138 (137-145) mmol/L Potassium 4.1 (3.5-5.1) mmol/L Chloride 103 (98-107) mmol/L Carbon Dioxide 27 (22-30) mmol/L Anion Gap 8 mmol/L BUN 49 H (7-17) mg/dL Creatinine 1.04 (0.52-1.04) mg/dL Est GFR (CKD-EPI)AfAm 58 (>60 ml/min/1.73 sqM) Est GFR (CKD-EPI)NonAf 51 (>60 ml/min/1.73 sqM) Glucose 131 H (74-99) mg/dL Calcium 10.8 H (8.4-10.2) mg/dL Total Bilirubin 0.5 (0.2-1.3) mg/dL AST 45 H (14-36) U/L ALT 15 (4-34) U/L Alkaline Phosphatase 115 (38-126) U/L Total Protein 6.3 (6.3-8.2) g/dL Albumin 3.9 (3.5-5.0) g/dL Stool Occult Blood (Negative) Blood Type Recheck Bld Type Recheck Status Spec Expiration Date 08/17/23 08/17/23 Range/Units 16:37 16:37 WBC (3.8-10.6) k/uL RBC (3.80-5.40) m/uL Hgb (11.4-16.0) gm/dL Hct (34.0-46.0) % MCV (80.0-100.0) fL MCH (25.0-35.0) pg MCHC (31.0-37.0) g/dL RDW (11.5-15.5) % Plt Count (150-450) k/uL MPV Neutrophils % % Lymphocytes % % Monocytes % % Eosinophils % % Basophils % % Neutrophils # (1.3-7.7) k/uL Lymphocytes # (1.0-4.8) k/uL Monocytes # (0-1.0) k/uL Eosinophils # (0-0.7) k/uL Basophils # (0-0.2) k/uL Hypochromasia Macrocytosis PT (10.0-12.5) sec INR (<1.2) APTT (22.0-30.0) sec Sodium (137-145) mmol/L Potassium (3.5-5.1) mmol/L Chloride (98-107) mmol/L Carbon Dioxide (22-30) mmol/L Anion Gap mmol/L BUN (7-17) mg/dL Creatinine (0.52-1.04) mg/dL Est GFR (CKD-EPI)AfAm (>60 ml/min/1.73 sqM) Est GFR (CKD-EPI)NonAf (>60 ml/min/1.73 sqM) Glucose (74-99) mg/dL Calcium (8.4-10.2) mg/dL Total Bilirubin (0.2-1.3) mg/dL AST (14-36) U/L ALT (4-34) U/L Alkaline Phosphatase (38-126) U/L Total Protein (6.3-8.2) g/dL Albumin (3.5-5.0) g/dL Stool Occult Blood Positive H (Negative) Blood Type Recheck No Previous Record Bld Type Recheck Status CABO Indicated Spec Expiration Date 08/20/2023 7654 Critical Care Time Critical Care Time: Yes Total Critical Care Time: 35 <Trae Krueger - Last Filed: 08/17/23 19:15> Disposition <Nery Rico - Last Filed: 08/17/23 13:55> Is patient prescribed a controlled substance at d/c from ED?: No Time of Disposition: 19:15 <Trae Krueger - Last Filed: 08/17/23 19:15> Clinical Impression: Melena, Upper GI bleed Disposition: ADMITTED IP TO THIS [facility] Condition: Stable Referrals: Olayinka Jain DO [Primary Care Provider] - 1-2 days
[2023-08-17 15:08] LABS: Basophils % (A) 1 %; Eosinophils # (A) 0.3 k/uL (0-0.7); Eosinophils % (A) 4 %; HCT 23.6 % (34.0-46.0); HGB 7.6 gm/dL (11.4-16.0); Hypochromasia Slight; INR 0.9 (<1.2); Lymphocytes # (A) 1.1 k/uL (1.0-4.8); Lymphocytes % (A) 17 %; MCH 33.4 pg (25.0-35.0); MCHC 32.3 g/dL (31.0-37.0); MCV 103.2 fL (80.0-100.0); Macrocytosis Slight; Mean Platelet Volume 7.8; Monocytes # (A) 0.5 k/uL (0-1.0); Monocytes % (A) 8 %; Neutrophils # (A) 4.2 k/uL (1.3-7.7); Neutrophils % (A) 68 %; Partial Thromboplastin Time 23.6 sec (22.0-30.0); Platelet Count 221 k/uL (150-450); Prothrombin Time 10.5 sec (10.0-12.5); RBC 2.28 m/uL (3.80-5.40); RDW 15.3 % (11.5-15.5); WBC 6.2 k/uL (3.8-10.6)
[2023-08-17 15:10] LABS: ALT 15 U/L (4-34); AST 45 U/L (14-36); African American GFR (CKD) 58 (>60 ml/min/1.73 sqM); Albumin 3.9 g/dL (3.5-5.0); Anion Gap 8 mmol/L; Blood Urea Nitrogen 49 mg/dL (7-17); Calcium 10.8 mg/dL (8.4-10.2); Carbon Dioxide 27 mmol/L (22-30); Chloride 103 mmol/L (98-107); Glucose 131 mg/dL (74-99); Non-African American GFR(CKD) 51 (>60 ml/min/1.73 sqM); Potassium 4.1 mmol/L (3.5-5.1); Sodium 138 mmol/L (137-145); Total Bilirubin 0.5 mg/dL (0.2-1.3); Total Protein 6.3 g/dL (6.3-8.2)
[2023-08-17 15:11] LABS: Alkaline Phosphatase 115 U/L (38-126)
[2023-08-17] MEDS: PANTOPRAZOLE 40 MG/10 ML VIAL IVP STA (16:55)
--- NOTE | 2023-08-17 18:33 | CT ---
EXAMINATION TYPE: CT abdomen pelvis w con CT DLP: 1116.3 mGycm, Automated exposure control for dose reduction was used. DATE OF EXAM: 08/17/2023 5:58 PM COMPARISON: 06/22/2022 CLINICAL INDICATION:Female, 83 years old with history of rectal bleeding; Recent dark blood in stool TECHNIQUE: Axial CT abdomen pelvis w con;Sagittal and coronal reformats were created on a separate w orkstation. Contrast used:80 mL of Isovue 300 without and with IV Contrast, (none if empty) Oral contrast used: without Oral Contrast (none if empty) FINDINGS: LOWER CHEST: Right lower lobe calcified granuloma moderate T11 changes. ABDOMEN LIVER: Cirrhotic liver with nodular contour. No suspicious lesions are there are few cysts present. S cattered calcified granulomas. GALLBLADDER AND BILE DUCTS: Unremarkable. PANCREAS: Unremarkable. SPLEEN: Scattered calcified granulomas. ADRENAL GLANDS: Unremarkable. KIDNEYS AND URETERS: No evidence of hydronephrosis or renal calculus. The ureters are unremarkable. PELVIS BLADDER: Unremarkable REPRODUCTIVE: Surgically absent. ABDOMEN & PELVIS STOMACH AND BOWEL: Evaluation of the gastrointestinal tract demonstrates no evidence of high density hemorrhage arterial phase or pooling of blood on delayed phases. Scattered diverticula are noted thro ughout the colon. No evidence of bowel obstruction. PERITONEUM/RETROPERITONEUM: No evidence of pneumoperitoneum or free fluid. VASCULATURE: Abdominal aortic aneurysm measuring up to 5.3 cm. As well as portions of the intravenous abdominal aorta are patent. Trace amount of high-density contrast in the proximal portion. There als o reviewed a bifurcation of the aorta and bilateral common iliac artery stents. Pain. MUSCULOSKELETAL: No acute osseous abnormalities. Severe disc degeneration changes are present through out the thoracolumbar spine. LYMPH NODES: No gross evidence for lymphadenopathy. SOFT TISSUE/ABDOMINAL WALL: Unremarkable IMPRESSION: 1. No evidence for gastrointestinal hemorrhage. 2. Aortic abdominal aneurysm with stent graft present with evidence of type I endoleak is slightly s uperiorly just below the level of the renal arteries and opacification of the aorta. 3. Hepatic cirrhosis with scattered cysts. 4. Colonic diverticulosis. 5. 5. 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
[2023-08-17] MEDS ORDERED: NALOXONE 0.4 MG/ML 1 ML VIAL IV PRN (19:15)
[2023-08-17] MEDS ORDERED: ONDANSETRON 4 MG/2 ML VIAL IVP PRN (19:26)
[2023-08-17] MEDS ORDERED: ALBUTEROL NEBULIZED 2.5 MG/3 ML INHALATION PRN (21:28)
[2023-08-17] MEDS ORDERED: DEXTROSE 50% SYRINGE 50 ML IVP PRN ×2 (21:31)
--- NOTE | 2023-08-17 21:50 | P.HPIM ---
History of Present Illness H&P Date: 08/17/23 Chief Complaint: Dark colored stools Patient is a 83-year-old female with past medical history of status post abdominal aortic aneurysm repair, CAD status post CABG, esophageal bleeding, type 2 diabetes, hypertension, and COPD came to ER with a complaint of heartburn and dark-colored stool which she noticed 1-2 days ago. no fresh blood per rectum , no hematemesis, or coffee- ground vomiting. Patient was started on dual antiplatelet therapy with aspirin and Plavix for 1 year denies being on blood thinners, denies taking NSAIDs. Patient denies any associated chest pain or trouble breathing however she reports some dizziness when she stands up and starts walking daughter describes that the patient is looking more tired than usual, Patient is also reporting generalized malaise, fatigue and poor appetite since 1 month. Patient has chronic GERD since 20 year with intermittent heartburn despite being on pantoprazole. Patient is a status post abdominal aortic aneurysm repair done on June 14, 2023 at [facility] in [place]. , Patient reports that she is scheduled for endoleak type I repair at [facility] in September. patient had previous episodes of melana 20 years ago due to esophageal irritation and week after post op abdominal aortic aneurysm repair which lasted for about 2 days before resolving completely. Patient has significant smoking history of 2 packs/day for almost 50 years. She quit smoking in 2002. Patient denies use of alcohol and/or illicit drug. Patient denies fever, chills, shortness of breath, wheezing, heart palpitations, diaphoresis, vomiting, diarrhea, constipation, urgency or frequency of urination, swelling, numbness or tingling in lower extremities. EKG done in the ER shows heart rate of 76 bpm, sinus rhythm with occasional PVC, nonspecific ST and T wave abnormality, normal RR progression, no QTc pr olongation. Laboratory evaluation shows WBC 6.2, hemoglobin 7.6, hematocrit 23.6, MCV 103.2, platelet 221, PT 10.5, INR 0.9, APTT 23.6, sodium 138, potassium 4.1, chloride 103, bicarb 27, BUN 49, creatinine 103, EGFR 51, glucose 131, calcium 10.8, AST 45, ALT 15, total bilirubin 0.5, stool occult blood positive. Vitals: Tmax 98.2 F, pulse rate 89, respiratory rate 17, blood pressure 150/68, O2 saturation 97% on room air. Review of systems: Pertinent positives and negatives as discussed in HPI, a complete review of systems was performed and all other systems are negative. Social history: Tobacco: 2 packs/day x 50 years; quit 2002 Alcohol: Denies drinking alcohol Recreational drugs: Denies using illicit drugs Travel: No recent Occupation: Retired Family History: Significant for abdominal aortic aneurysm and father, brother and uncles. Physical examination: Vital signs reviewed General: non toxic, no distress, appears at stated age, underweight Derm: no unusual rashes/lesions, warm Head: atraumatic, normocephalic, symmetric Eyes: EOMI, no lid lag, anicteric sclera, pupils equal round reactive to light ENT: Nose and ears atraumatic Neck: No cervical lymphadenopathy, trachea midline, supple Mouth: no lip lesion, mucus membranes moist Cardiovascular: S1S2 reg, occasional extra beats, no murmur, positive dorsalis pedis pulse bilateral, no edema Lungs: Decreased breath sounds bilaterally, no rhonchi, no rales, no accessory muscle use Abdominal: soft, nontender to palpation, no guarding, no gross bleeding from the surgical side, no erythema or discharge. Ext: muscle strength 5 out of 5 in all 4 extremities grossly, no gross muscle atrophy, no contractures, Neuro: CN II-XI grossly intact, no gross focal neuro deficits Psych: Alert, oriented, appropriate affect Assessment/Plan: 83-year-old female status post abdominal aortic aneurysm repair 2 months ago complicated by endoleak , type 2 diabetes, hypertension, and COPD not on home oxygen , has questionable history of esophageal bleeding, she came to ER with a complaint of heartburn and dark-colored stool which she noticed 1 day ago. Patient most likely has upper GI bleed. 1. acute symptomatic anemia secondary to GI bleed marilee suspected secondary to Upper GI bleed, likely esophageal irritation from her recent use of aspirin and Plavix Hold aspirin and Plavix Continue with Protonix 40 mg IVP twice daily Continue on n.p.o. diet GI consulted Continue with IV normal saline 75 cc/h Hemoglobin 7.6 (baseline 1 year ago was 12-13), hematocrit 23.6 Transfusion with PRBC when hemoglobin less than 7 or before if patient is symptomatic monitor CBC Q6 hr 2. Macrocytic anemia, likely due to poor nutrition MCV of 103.2 Check RBC folate and vitamin B12 level 3. Diabetes mellitus type 2 Serum glucose 131 Hold oral hypoglycemic agents Started on sliding scale short acting insulin per protocol 4. Elevated liver enzyme AST 45 Her previous LFTs were within normal range CT abdomen shows cirrhotic liver with nodular contour. No suspicious lesions for malignancy. Continue to monitor liver function test on outpatient basis 5. Elevated BUN, likely due to dehydration BUN 49, creatinine 1.04, EGFR 51 Continue with IV fluids Repeat BMP *Chronic conditions: hypertension controlled continue with metoprolol, lisinopril COPD not on home oxygen continue with albuterol and symbicort DVT prophylaxis: mechanical SCDs The patient is admitted with an anticipated more than 2 midnight stay for evaluation of upper GI bleeding CODE STATUS: Full Discussed with: Patient, daughter Anticipated discharge place: Home Past Medical History Past Medical History: Cancer, Diabetes Mellitus, Hyperlipidemia, Hypertension History of Any Multi-Drug Resistant Organisms: None Reported Past Surgical History: Cholecystectomy, Heart Catheterization With Stent Additional Past Surgical History / Comment(s): abdominal aortic aneurysm (June 2023) Past Psychological History: No Psychological Hx Reported Smoking Status: Never smoker Past Alcohol Use History: None Reported Past Drug Use History: None Reported Medications and Allergies Home Medications Medication Instructions Recorded Confirmed Type Albuterol Sulfate [Ventolin HFA] 2 puff INHALATION RT-Q4H PRN 08/17/23 08/17/23 History Ascorbic Acid [Vitamin C] 1,000 mg PO DAILY 08/17/23 08/17/23 History Aspirin EC [Ecotrin Low Dose] 81 mg PO DAILY 08/17/23 08/17/23 History Budesonide/Formoterol Fumarate 2 puff INHALATION RT-BID 08/17/23 08/17/23 History [Symbicort 160-4.5 Mcg Inhaler] Clopidogrel [Plavix] 75 mg PO DAILY 08/17/23 08/17/23 History DULoxetine HCL [Cymbalta] 60 mg PO DAILY 08/17/23 08/17/23 History Ergocalciferol (Vitamin D2) 1,250 mcg PO Q14D 08/17/23 08/17/23 History [Drisdol (50,000 Iu)] Ferrous Sulfate [Slow Release Iron] 140 mg PO DAILY 08/17/23 08/17/23 History Fluticasone Nasal [place] [Flonase 2 spray EA NOSTRIL DAILY 08/17/23 08/17/23 History Nasal [place]] Gabapentin 600 mg PO DAILY 08/17/23 08/17/23 History Ipratropium [place] 0.06%Nasal 2 spray EA NOSTRIL TID 08/17/23 08/17/23 History [Atrovent Nasal 0.06%] Krill/Om-3/Dha/Epa/Phospho/Ast 1 cap PO DAILY 08/17/23 08/17/23 History [[place]-3 Krill Oil 300 mg Sfgl] Loratadine [Claritin] 10 mg PO DAILY 08/17/23 08/17/23 History Losartan [Cozaar] 50 mg PO DAILY 08/17/23 08/17/23 History Lovastatin [Mevacor] 80 mg PO HS 08/17/23 08/17/23 History Metoprolol Tartrate [Lopressor] 50 mg PO BID 08/17/23 08/17/23 History Nitroglycerin Sl Tabs [Nitrostat] 0.4 mg SUBLINGUAL Q5M PRN 08/17/23 08/17/23 History Pantoprazole [Protonix] 40 mg PO DAILY 08/17/23 08/17/23 History Potassium Chloride ER [K-Dur 20] 20 meq PO DAILY 08/17/23 08/17/23 History Propylene Glycol/Peg 400/Pf 1 drop BOTH EYES QID PRN 08/17/23 08/17/23 History [Systane 0.3-0.4% Ophth Dropperette] Vit C/E/Zn/Coppr/Lutein/Zeaxan 1 cap PO BID 08/17/23 08/17/23 History [Preservision Areds 2 Softgel] Vitamin B Complex 1 cap PO DAILY 08/17/23 08/17/23 History gemfibroziL [Lopid] 600 mg PO BID-W/MEALS 08/17/23 08/17/23 History hydrOXYzine HCL [Atarax] 25 - 50 mg PO HS PRN 08/17/23 08/17/23 History hydroCHLOROthiazide 12.5 mg PO DAILY 08/17/23 08/17/23 History metFORMIN HCL [Glucophage] 500 mg PO BID-W/MEALS 08/17/23 08/17/23 History Allergies Allergy/AdvReac Type Severity Reaction Status Date / Time Sulfa (Sulfonamide Allergy Unknown Verified 08/17/23 18:18 Antibiotics) sulfacetamide Allergy Unknown Verified 08/17/23 18:18 [From Sulfamide] Tetracyclines Allergy Unknown Verified 08/17/23 18:18 tramadol Allergy Itching Verified 08/17/23 18:18 Physical Exam Vitals: Vital Signs Temp Pulse Resp BP Pulse Ox 08/17/23 18:23 97.6 F 89 17 150/68 97 08/17/23 17:02 98.2 F 80 16 149/64 94 L 08/17/23 16:44 80 18 155/88 96 08/17/23 13:51 97.4 F L 90 18 139/73 Intake and Output 08/17/23 08/17/23 08/17/23 06:59 14:59 22:59 Other: Weight 54.431 kg Results CBC & Chem 7: 08/17/23 14:37 08/17/23 14:37 Labs: Abnormal Lab Results - Last 24 Hours (Table) 08/17/23 08/17/23 08/17/23 Range/Units 14:37 14:37 16:37 RBC 2.28 L (3.80-5.40) m/uL Hgb 7.6 L (11.4-16.0) gm/dL Hct 23.6 L (34.0-46.0) % MCV 103.2 H (80.0-100.0) fL BUN 49 H (7-17) mg/dL Glucose 131 H (74-99) mg/dL Calcium 10.8 H (8.4-10.2) mg/dL AST 45 H (14-36) U/L Stool Occult Blood Positive H (Negative) Assessment and Plan Assessment: I personally saw and examined the patient I discussed the case with the resident I agree with his documentation I made changes as needed in the assessment and plan
[2023-08-17] MEDS: SODIUM CHLORIDE 0.9% 1,000 ML IV SCH (22:11)
[2023-08-17] MEDS: PANTOPRAZOLE 40 MG/10 ML VIAL IVP SCH (22:12)
[2023-08-18 03:57] LABS: HCT 21.1 % (34.0-46.0); Hypochromasia Slight; MCH 32.6 pg (25.0-35.0); MCHC 31.4 g/dL (31.0-37.0); MCV 103.7 fL (80.0-100.0); Macrocytosis Slight; Mean Platelet Volume 7.6; Platelet Count 214 k/uL (150-450); RBC 2.04 m/uL (3.80-5.40); RDW 15.1 % (11.5-15.5); WBC 5.1 k/uL (3.8-10.6)
[2023-08-18 04:47] LABS: HGB 6.6 gm/dL (11.4-16.0)
--- NOTE | 2023-08-18 06:59 | P.PN ---
Subjective Progress Note Date: 08/18/23 Subjective: Patient seen at bedside. Since admission patient's hemoglobin has dropped from 7.6-6.6 this morning. Patient has received 1 PRBC and hemoglobin will be rechecked every 6 hours. Pertinent positives and negatives discussed above, a complete review of systems was preformed and all the other sytems were negative. Vitals Signs Reveiwed. General: non toxic, no distress, appears at stated age, normal weight Derm: no unusual rashes/lesions, warm Head: atraumatic, normocephalic, symmetric Eyes: EOMI, no lid lag, anicteric sclera, pupils equal round reactive to light ENT: Nose and ears atraumatic Neck: No cervical lymphadenopathy, trachea midline, supple Mouth: no lip lesion, mucus membranes moist Cardiovascular: S1S2 reg, no murmur, positive dorsalis pedis pulse bilateral, no edema Lungs: Decreased air entry bilaterally, no rhonchi, no rales, no accessory muscle use Abdominal: soft, nontender to palpation, no guarding Ext: muscle strength 5 out of 5 in all 4 extremities grossly, no gross muscle atrophy, no contractures, Neuro: CN II-XI grossly intact, no gross focal neuro deficits Psych: Alert, oriented, appropriate affect Data Reveiwed Today: Patient Labs: WBC 5.1, RBC 2.04, hemoglobin 6.6, and MCV 103.7 Imaging: CT abdomen and pelvis: No evidence of GI hemorrhage, AAA with stent graft present with evidence of type I endoleak Assesment and Plan: Acute symptomatic anemia secondary to GI bleed: Hemoglobin this morning 6.6 Will transfuse with PRBC Continue to hold aspirin and Plavix Continue Protonix 40 mg IV twice daily and n.p.o. diet Continue IV normal saline 75 cc/h Continue checking CBC every 6 hours Type 2 diabetes: Discontinued home medication, currently on sliding scale short acting insulin Glucose 131 Elevated LFT: AST 45 which is increased from her baseline CT abdomen shows cirrhotic liver with nodular contour but no suspicion for malignancy Continue to monitor LFTs Elevated BUN likely secondary to blood loss: BUN 49, creatinine 1.04, EGFR 51 1 PRBC given and will continue IV fluids Will follow-up on BMP Macrocytic anemia: MCV of 103.2 Will order folate and B12 Chronic: Hypertension and COPD controlled with continued home medication F normal saline 75 cc/h and 1 PRBC E none N n.p.o. A mechanical SCDs DVT ppx: None due to GI bleed Code Status: Full code Anticipated discharge place: [] Anticipated discharge time: [] I have seen and evaluated the patient today. Discussed with the resident and agree with the residents subjective and objective as documented in the resident's note. The assessment and plan was discussed and outlined as below. Patient reports no bowel movement today. Feels fatigued. CBC RBC 2.04, Hg 6.6, Hct 21.1, MCV 13.7. Upper GI bleed: Transfuse 1 PRBC. CBC Q6H. Order Iron studies, B12 and Folate. Telemetry monitoring. Protonix 40 mg IV BID. Consult GI will likely need EGD. Objective - Vital Signs Vital signs: Vital Signs Temp 97.6 F 08/17/23 18:23 Pulse 78 08/18/23 06:09 Resp 18 08/18/23 06:09 BP 114/51 08/18/23 06:09 Pulse Ox 93 L 08/18/23 06:09 FiO2 Intake & Output 08/17/23 08/17/23 08/18/23 06:59 18:59 06:59 Weight 54.431 kg - Labs CBC & Chem 7: 08/18/23 11:54 08/17/23 14:37 Labs: Abnormal Lab Results - Last 24 Hours (Table) 08/17/23 08/17/23 08/17/23 Range/Units 14:37 14:37 16:37 RBC 2.28 L (3.80-5.40) m/uL Hgb 7.6 L (11.4-16.0) gm/dL Hct 23.6 L (34.0-46.0) % MCV 103.2 H (80.0-100.0) fL BUN 49 H (7-17) mg/dL Glucose 131 H (74-99) mg/dL Calcium 10.8 H (8.4-10.2) mg/dL AST 45 H (14-36) U/L Stool Occult Blood (Negative) Crossmatch See Detail 08/17/23 08/18/23 Range/Units 16:37 03:35 RBC 2.04 L (3.80-5.40) m/uL Hgb 6.6 L* (11.4-16.0) gm/dL Hct 21.1 L (34.0-46.0) % MCV 103.7 H (80.0-100.0) fL BUN (7-17) mg/dL Glucose (74-99) mg/dL Calcium (8.4-10.2) mg/dL AST (14-36) U/L Stool Occult Blood Positive H (Negative) Crossmatch
[2023-08-18 07:57] LABS: Glucose,Whole Blood 106 mg/dL (70-110)
[2023-08-18] MEDS: INSULIN ASPART (NovoLOG) 100 UNIT/ML VIAL SQ SCH (07:57)
[2023-08-18] MEDS: SYMBICORT 160-4.5 MCG INHALER INHALATION SCH (08:06)
[2023-08-18] MEDS: METOPROLOL TARTRATE 50 MG TAB PO SCH (09:14)
[2023-08-18] MEDS: LOSARTAN 50 MG TAB PO SCH (09:14)
[2023-08-18 12:25] LABS: Anisocytosis Slight; HCT 20.2 % (34.0-46.0); Hypochromasia Moderate; MCH 31.5 pg (25.0-35.0); MCHC 30.8 g/dL (31.0-37.0); MCV 102.1 fL (80.0-100.0); Macrocytosis Moderate; Mean Platelet Volume 7.4; Platelet Count 162 k/uL (150-450); RBC 1.98 m/uL (3.80-5.40); RDW 18.5 % (11.5-15.5); WBC 3.8 k/uL (3.8-10.6)
[2023-08-18 13:05] LABS: HGB 6.2 gm/dL (11.4-16.0)
[2023-08-18 13:23] LABS: Glucose,Whole Blood 85 mg/dL (70-110)
--- NOTE | 2023-08-18 14:48 | P.CONS ---
History of Present Illness - Reason for Consult Consult date: 08/18/23 Upper GI bleed Requesting physician: Trae Krueger - Chief Complaint Weakness, black stool - History of Present Illness This is a pleasant 83-year-old female who presented to the emergency department with complaints of weakness and black stool. She states that the black stool started 2 days ago she had 2 black bowel movements on the first day and 1 yesterday. She does have a history of abdominal aortic aneurysm and underwent percutaneous repair with stent on 06/14/2023 and is currently on aspirin 81 mg daily and Plavix 75 mg daily. Patient states that she also has been having a little more acid reflux. She does take Protonix daily. She does have a history of esophagitis with upper GI bleed many years ago following CABG. When patient came to the emergency room yesterday hemoglobin was 7.6 she had a repeat done at 330 and it had dropped to 6.6. She is currently getting 1 unit of blood. States she has had no bowel movements today. Mild epigastric discomfort. No nausea or vomiting. Review of Systems REVIEW OF SYSTEMS: CARDIOPULMONARY: No chest pain or shortness of breath. Gastrointestinal: Mild epigastric discomfort. GERD. No nausea or vomiting. No hematemesis, coffee-ground emesis. No rectal bleeding. Reported black stool x 2 days. GENITOURINARY: No dysuria or hematuria. MUSCULOSKELETAL: Reports normal range of motion. SKIN: No rashes. No jaundice. ENDOCRINE: No chills, fevers. No excessive weight gain or loss. No polydipsia or polyuria. PSYCHIATRIC: Unremarkable. NEUROLOGY: No change in mental status. Denies dizziness, headache. ENT: Vision unremarkable. CONSTITUTIONAL: No recent weight loss. No fever, chills, night sweats. Past Medical History Past Medical History: Cancer, Diabetes Mellitus, Hyperlipidemia, Hypertension History of Any Multi-Drug Resistant Organisms: None Reported Past Surgical History: Cholecystectomy, Heart Catheterization With Stent Additional Past Surgical History / Comment(s): abdominal aortic aneurysm (June 2023) Past Psychological History: No Psychological Hx Reported Smoking Status: Never smoker Past Alcohol Use History: None Reported Past Drug Use History: None Reported Medications and Allergies Home Medications Medication Instructions Recorded Confirmed Type Albuterol Sulfate [Ventolin HFA] 2 puff INHALATION RT-Q4H PRN 08/17/23 08/17/23 History Ascorbic Acid [Vitamin C] 1,000 mg PO DAILY 08/17/23 08/17/23 History Aspirin EC [Ecotrin Low Dose] 81 mg PO DAILY 08/17/23 08/17/23 History Budesonide/Formoterol Fumarate 2 puff INHALATION RT-BID 08/17/23 08/17/23 History [Symbicort 160-4.5 Mcg Inhaler] Clopidogrel [Plavix] 75 mg PO DAILY 08/17/23 08/17/23 History DULoxetine HCL [Cymbalta] 60 mg PO DAILY 08/17/23 08/17/23 History Ergocalciferol (Vitamin D2) 1,250 mcg PO Q14D 08/17/23 08/17/23 History [Drisdol (50,000 Iu)] Ferrous Sulfate [Slow Release Iron] 140 mg PO DAILY 08/17/23 08/17/23 History Fluticasone Nasal [place] [Flonase 2 spray EA NOSTRIL DAILY 08/17/23 08/17/23 History Nasal [place]] Gabapentin 600 mg PO DAILY 08/17/23 08/17/23 History Ipratropium [place] 0.06%Nasal 2 spray EA NOSTRIL TID 08/17/23 08/17/23 History [Atrovent Nasal 0.06%] Krill/Om-3/Dha/Epa/Phospho/Ast 1 cap PO DAILY 08/17/23 08/17/23 History [[place]-3 Krill Oil 300 mg Sfgl] Loratadine [Claritin] 10 mg PO DAILY 08/17/23 08/17/23 History Losartan [Cozaar] 50 mg PO DAILY 08/17/23 08/17/23 History Lovastatin [Mevacor] 80 mg PO HS 08/17/23 08/17/23 History Metoprolol Tartrate [Lopressor] 50 mg PO BID 08/17/23 08/17/23 History Nitroglycerin Sl Tabs [Nitrostat] 0.4 mg SUBLINGUAL Q5M PRN 08/17/23 08/17/23 History Pantoprazole [Protonix] 40 mg PO DAILY 08/17/23 08/17/23 History Potassium Chloride ER [K-Dur 20] 20 meq PO DAILY 08/17/23 08/17/23 History Propylene Glycol/Peg 400/Pf 1 drop BOTH EYES QID PRN 08/17/23 08/17/23 History [Systane 0.3-0.4% Ophth Dropperette] Vit C/E/Zn/Coppr/Lutein/Zeaxan 1 cap PO BID 08/17/23 08/17/23 History [Preservision Areds 2 Softgel] Vitamin B Complex 1 cap PO DAILY 08/17/23 08/17/23 History gemfibroziL [Lopid] 600 mg PO BID-W/MEALS 08/17/23 08/17/23 History hydrOXYzine HCL [Atarax] 25 - 50 mg PO HS PRN 08/17/23 08/17/23 History hydroCHLOROthiazide 12.5 mg PO DAILY 08/17/23 08/17/23 History metFORMIN HCL [Glucophage] 500 mg PO BID-W/MEALS 08/17/23 08/17/23 History Allergies Allergy/AdvReac Type Severity Reaction Status Date / Time Sulfa (Sulfonamide Allergy Unknown Verified 08/17/23 18:18 Antibiotics) sulfacetamide Allergy Unknown Verified 08/17/23 18:18 [From Sulfamide] Tetracyclines Allergy Unknown Verified 08/17/23 18:18 tramadol Allergy Itching Verified 08/17/23 18:18 Physical Exam Vitals: Vital Signs Temp Pulse Resp BP Pulse Ox 08/18/23 08:10 94 L 08/18/23 07:19 98.0 F 79 16 135/73 08/18/23 06:09 78 18 114/51 93 L 08/18/23 03:26 75 18 111/49 100 08/17/23 22:03 80 20 128/64 94 L 08/17/23 18:23 97.6 F 89 17 150/68 97 08/17/23 17:02 98.2 F 80 16 149/64 94 L 08/17/23 16:44 80 18 155/88 96 08/17/23 13:51 97.4 F L 90 18 139/73 Intake and Output 08/17/23 08/18/23 08/18/23 22:59 06:59 14:59 Intake Total 0 Balance 0 Intake: Blood Product 0 Unit 0 General appearance: The patient is alert, oriented, appears in no acute distress. HET: Head is normocephalic and atraumatic. Conjunctiva pink. Sclera anicteric. Neck: Supple without lymphadenopathy. Trachea midline. Heart: Regular. Lungs: Equal expansion, normal respiratory effort. Abdomen: Soft, mild epigastric tenderness, nondistended. Skin: No rashes. No jaundice. Extremities: Normal skin color and turgor. No pedal edema. Neurological: No focal deficits. Alert and oriented x3. Results CBC & Chem 7: 08/18/23 11:54 08/17/23 14:37 Labs: Abnormal Lab Results - Last 24 Hours (Table) 08/17/23 08/17/23 08/17/23 Range/Units 14:37 14:37 16:37 RBC 2.28 L (3.80-5.40) m/uL Hgb 7.6 L (11.4-16.0) gm/dL Hct 23.6 L (34.0-46.0) % MCV 103.2 H (80.0-100.0) fL BUN 49 H (7-17) mg/dL Glucose 131 H (74-99) mg/dL Calcium 10.8 H (8.4-10.2) mg/dL AST 45 H (14-36) U/L Stool Occult Blood (Negative) Crossmatch See Detail 08/17/23 08/18/23 Range/Units 16:37 03:35 RBC 2.04 L (3.80-5.40) m/uL Hgb 6.6 L* (11.4-16.0) gm/dL Hct 21.1 L (34.0-46.0) % MCV 103.7 H (80.0-100.0) fL BUN (7-17) mg/dL Glucose (74-99) mg/dL Calcium (8.4-10.2) mg/dL AST (14-36) U/L Stool Occult Blood Positive H (Negative) Crossmatch Comments: CT abdomen pelvis with contrast ports no evidence for gastrointestinal hemorrhage. Aortic abdominal aneurysm with stent graft present with evidence of type I endoleak slightly superior just below the level of the renal arteries and opacification of the aorta. Hepatic cirrhosis with scattered cysts. Colonic diverticulosis. 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 Assessment and Plan (1) GI bleed Narrative/Plan: 83-year-old female presenting with black stool and weakness for last 2 days duration. Patient was noted to have hemoglobin of 6.9 on admission. Patient she is on aspirin and Plavix for history of coronary artery disease and recent abdominal aortic aneurysm stent. Does have history of GERD and history of esophagitis with upper GI bleed. 2 days of black stool with 1 episode yesterday and none today. Vital signs are stable. Will treat symptomatically with Protonix 40 mg IV twice daily. Possible etiology includes esophagitis, peptic ulcer disease, AVM, gastritis or other possible etiologies. Will proceed with upper endoscopy. Current Visit: Yes Status: Acute Code(s): K92.2 - GASTROINTESTINAL HEMORRHAGE, UNSPECIFIED SNOMED Code(s): 38311294 (2) Anemia Current Visit: Yes Status: Acute Code(s): D64.9 - ANEMIA, UNSPECIFIED SNOMED Code(s): 516365617 (3) Melena Current Visit: Yes Status: Acute Code(s): K92.1 - MELENA SNOMED Code(s): 3337221 Plan: 1. Continue symptomatic and supportive care 2. Daily CBC transfuse for hemoglobin less than 7 3. Protonix 40 mg twice daily 4. Patient may have clear liquid diet, n.p.o. after midnight 5. Hold aspirin and Plavix 6. Patient scheduled for upper endoscopy tomorrow Thank you for this consultation, we will continue to follow. Dr. Emerita Retana I agree with the dictator's note, documented as a scribe by Irma Sena.
[2023-08-18 15:45] LABS: % Iron Saturation 10.63 (12.00-45.00)
[2023-08-18] MEDS: amLODIPine 10 MG TAB PO STA (15:55)
[2023-08-18 17:34] LABS: Glucose,Whole Blood 118 mg/dL (70-110)
[2023-08-18 20:07] LABS: Glucose,Whole Blood 207 mg/dL (70-110)
[2023-08-18 22:39] LABS: Anisocytosis Slight; HCT 35.4 % (34.0-46.0); Hypochromasia Slight; MCH 31.3 pg (25.0-35.0); MCHC 32.5 g/dL (31.0-37.0); Macrocytosis Slight; Mean Platelet Volume 7.9; Platelet Count 157 k/uL (150-450); RBC 3.68 m/uL (3.80-5.40); RDW 18.2 % (11.5-15.5); WBC 6.9 k/uL (3.8-10.6)
[2023-08-18 22:48] LABS: MCV 96.1 fL (80.0-100.0)
[2023-08-18 22:49] LABS: HGB 11.5 gm/dL (11.4-16.0)
[2023-08-19 06:25] LABS: Glucose,Whole Blood 98 mg/dL (70-110)
[2023-08-19] MEDS ORDERED: PROPOFOL 10 MG/ML 20 ML VIAL IV ONE (06:55)
[2023-08-19] MEDS ORDERED: LIDOCAINE 1% INJ 10MG/ML (20 ML MDV) ONE (06:55)
[2023-08-19] MEDS: IV FLUID CONTINUATION 1,000 ML IV ONE (07:13)
--- NOTE | 2023-08-19 07:16 | P.PCN ---
Date of Procedure: 08/19/23 Procedure(s) Performed: BRIEF HISTORY: Patient is a 3-year-old, pleasant, white female admitted to hospital with black tarry stools for the last 2 days duration. Hemoglobin was down to 6.5 g/dL and received total of 3 units of PRBC transfusion and this morning hemoglobin is up to 11 g/dL. She has been having black tarry stools for the last 2 days duration.. Prior history of peptic ulcer disease. PROCEDURE PERFORMED: Esophagogastroduodenoscopy with cautery using gold probe. PREOPERATIVE DIAGNOSIS: Black tarry stools and symptomatic anemia of 2 days duration. IV sedation per anesthesia. PROCEDURE: After informed consent was obtained, the patient was brought into the endoscopy unit. IV sedation was administered by Anesthesia under continuous monitoring. Initially the Olympus GIF-140 video endoscope was inserted into the mouth. Esophagus intubated without any difficulty. It was gradually advanced into the stomach and duodenum and carefully examined. The second part of the duodenum appeared normal. In the bulb of the duodenum there was a 6 mm arteriovenous malformation identified some oozing was cauterized using gold probe with good hemostasis. The scope at this time was withdrawn to the stomach, adequately insufflated with air, and upon careful examination, mucosa of the antrum, appeared normal. The proximal body of the stomach there was a 7 mm nonbleeding arteriovenous malformation identified which was cauterized using gold probe. Body, cardia and the fundus appeared normal. The scope was then withdrawn into the esophagus. Small hiatal hernia noted. The GE junction was located at 39 cm from the incisors. The esophagus appeared normal. There were no erosions or ulcerations seen and the patient tolerated the procedure well. IMPRESSION: 1. 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 2. 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 3. Small hiatal hernia but no evidence of peptic ulcer disease RECOMMENDATIONS: The findings of this examination were discussed with the patient as well as her family. Continue with Protonix 40 mg daily. Advance diet as tolerated. Continue hemoglobin is stable she can be discharged home tomorrow..
--- NOTE | 2023-08-19 07:39 | P.PN ---
Subjective Progress Note Date: 08/19/23 Subjective: Patient seen at bedside. Patient's hemoglobin has stabilized overnight after receiving 3 PRBCs. Status post EGD this morning, recovering well. Pertinent positives and negatives discussed above, a complete review of systems was preformed and all the other sytems were negative. Vitals Signs Reveiwed. General: non toxic, no distress, appears at stated age, normal weight Derm: no unusual rashes/lesions, warm Head: atraumatic, normocephalic, symmetric Eyes: EOMI, no lid lag, anicteric sclera, pupils equal round reactive to light ENT: Nose and ears atraumatic Neck: No cervical lymphadenopathy, trachea midline, supple Mouth: no lip lesion, mucus membranes moist Cardiovascular: S1S2 reg, no murmur, positive dorsalis pedis pulse bilateral, no edema Lungs: Decreased air entry bilaterally, no rhonchi, no rales, no accessory muscle use Abdominal: soft, nontender to palpation, no guarding Ext: muscle strength 5 out of 5 in all 4 extremities grossly, no gross muscle atrophy, no contractures, Neuro: CN II-XI grossly intact, no gross focal neuro deficits Psych: Alert, oriented, appropriate affect Data Reveiwed Today: Patient Labs: WBC 6.9, RBC 3.68, hemoglobin 11.5, MCV 96.1, and RDW 18.2. 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 Also showed small hiatal hernia with no evidence of peptic ulcer disease. Assesment: 83-year-old female with a past medical history of abdominal aortic aneurysm status postrepair, CAD status post CABG, esophageal bleeding, type 2 diabetes, hypertension, and COPD initially presented to the ED with new dark stools and weakness. Patient was admitted for workup of upper GI bleed. Patient received EGD in the hospital and is recovering well. Plan: Acute symptomatic anemia secondary to GI bleed: Hemoglobin last night 11.5 EGD performed showing oozing duodenal AV malformation and 7 mm bleeding gastric AVM malformation both having good hemostasis status post cautery. Received 3 transfusions of PRBC Aspirin restarted, continue to hold Plavix till tomorrow (08/19) Continue Protonix 40 mg IV twice daily On clear liquid diet to be slowly advanced to regular diet by tomorrow Continue IV normal saline 75 cc/h CBC ordered for tomorrow to recheck hemoglobin before potential discharge Type 2 diabetes: Discontinued home medication, currently on sliding scale short acting insulin Glucose 86 Elevated LFT: AST 45 which is increased from her baseline CT abdomen shows cirrhotic liver with nodular contour but no suspicion for malignancy Continue to monitor LFTs Elevated BUN likely secondary to blood loss: Resolved BUN 15, creatinine 1.61, GFR a.m. greater than 90 Macrocytic anemia: Resolved MCV of 96.1 Potentially irregular due to previously active GI bleeding. B12 569 Iron 47, TIBC 442, percent saturation 10.63, transferrin 316. Chronic: Hypertension and COPD controlled with continued home medication F normal saline 75 cc/h and 1 PRBC E none N clear liquid diet to be advanced to regular diet by tomorrow A mechanical SCDs DVT ppx: None due to GI bleed Code Status: Full code Anticipated discharge place: To home Anticipated discharge time: Likely 08/19 pending clinical course I have seen and evaluated the patient today. Discussed with the resident and agree with the residents subjective and objective as documented in the resident's note. The assessment and plan was discussed and outlined as below. Patient feels well. Underwent EGD with 2 AV esophageal malformations cauterized. Status post 3 units PRBC. Hg is stable. Discussed with Irma STRICKLAND, monitor o vernight on ASA with plans for discharge tomorrow if no further bleed. Objective - Vital Signs Vital signs: Vital Signs Temp 98.4 F 08/18/23 20:36 Pulse 82 08/19/23 03:30 Resp 16 08/19/23 03:30 BP 141/63 08/19/23 03:30 Pulse Ox 92 L 08/19/23 03:30 FiO2 Intake & Output 08/18/23 08/19/23 08/19/23 18:59 06:59 18:59 Intake Total 1058 550 100 Balance 1058 550 100 Weight 54.431 kg 54.7 kg Intake: IV 10 100 Invasive Line 1 10 Oral 450 240 Blood Product 598 310 Rc As-1 Unit 310 [id number] Rc As-1 Unit 0 310 [id number] Rc Pheresis 2 As3 Unit 288 [id number] Other: Voiding Method Toilet Toilet Bedside Commode # Voids 2 2 # Bowel Movements 1 - Labs CBC & Chem 7: 08/19/23 07:26 08/19/23 07:26 Labs: Abnormal Lab Results - Last 24 Hours (Table) 08/17/23 08/17/23 08/18/23 Range/Units 14:37 16:37 11:54 RBC 1.98 L (3.80-5.40) m/uL Hgb 6.2 L* (11.4-16.0) gm/dL Hct 20.2 L (34.0-46.0) % MCV 102.1 H (80.0-100.0) fL MCHC 30.8 L (31.0-37.0) g/dL RDW 18.5 H (11.5-15.5) % POC Glucose (mg/dL) (70-110) mg/dL Iron 47 L (50-170) UG/DL % Saturation 10.63 L (12.00-45.00) Crossmatch See Detail 08/18/23 08/18/23 08/18/23 Range/Units 17:33 20:06 22:23 RBC 3.68 L (3.80-5.40) m/uL Hgb (11.4-16.0) gm/dL Hct (34.0-46.0) % MCV (80.0-100.0) fL MCHC (31.0-37.0) g/dL RDW 18.2 H (11.5-15.5) % POC Glucose (mg/dL) 118 H 207 H (70-110) mg/dL Iron (50-170) UG/DL % Saturation (12.00-45.00) Crossmatch
[2023-08-19] MEDS: ACETAMINOPHEN TAB 325 MG TAB PO PRN (08:09)
[2023-08-19 08:18] LABS: Anisocytosis Slight; HCT 35.9 % (34.0-46.0); HGB 11.5 gm/dL (11.4-16.0); MCH 30.5 pg (25.0-35.0); MCHC 32.1 g/dL (31.0-37.0); MCV 95.1 fL (80.0-100.0); Macrocytosis Slight; Mean Platelet Volume 7.6; Platelet Count 179 k/uL (150-450); RBC 3.78 m/uL (3.80-5.40); RDW 18.1 % (11.5-15.5); WBC 6.3 k/uL (3.8-10.6)
[2023-08-19 08:43] LABS: African American GFR (CKD) >90 (>60 ml/min/1.73 sqM); Anion Gap 5 mmol/L; Blood Urea Nitrogen 15 mg/dL (7-17); Calcium 8.9 mg/dL (8.4-10.2); Carbon Dioxide 28 mmol/L (22-30); Chloride 109 mmol/L (98-107); Glucose 86 mg/dL (74-99); Non-African American GFR(CKD) 85 (>60 ml/min/1.73 sqM); Sodium 142 mmol/L (137-145)
[2023-08-19 11:43] LABS: Glucose,Whole Blood 92 mg/dL (70-110)
[2023-08-19] MEDS: POTASSIUM CHLORIDE ER 20 MEQ TAB.ER PO STA (12:48)
[2023-08-19] MEDS: FERROUS SULFATE 325 MG TAB PO SCH (12:48)
[2023-08-19] MEDS: MAGNESIUM SULFATE-D5W PMX 1 GM in DEXTROSE/WATER 1 100ML.BAG IVPB SCH (12:48)
[2023-08-19] MEDS: DULoxetine HCL 60 MG CAPSULE.DR PO SCH (12:48)
[2023-08-19] MEDS: FENOFIBRATE 160 MG TAB PO SCH (12:48)
[2023-08-19] MEDS: POTASSIUM CHLORIDE ER 20 MEQ TAB.ER PO SCH (12:49)
[2023-08-19] MEDS: GABAPENTIN 300 MG CAP PO SCH (12:49)
[2023-08-19] MEDS: hydroCHLOROthiazide 12.5 MG CAP PO SCH (12:50)
[2023-08-19] MEDS: ASPIRIN 81 MG PO SCH (12:50)
[2023-08-19 16:49] LABS: Glucose,Whole Blood 129 mg/dL (70-110)
[2023-08-19 19:56] LABS: Glucose,Whole Blood 137 mg/dL (70-110)
[2023-08-19] MEDS: ATORVASTATIN 20 MG TAB PO SCH (20:07)
[2023-08-19 21:09] VITALS: RESP 18
[2023-08-20 06:10] LABS: Glucose,Whole Blood 111 mg/dL (70-110)
--- NOTE | 2023-08-20 07:04 | P.PN ---
Subjective Progress Note Date: 08/20/23 Patient seen at bedside. No significant overnight events. Vitals Signs Reveiwed. General: non toxic, no distress, appears at stated age, normal weight Derm: no unusual rashes/lesions, warm Head: atraumatic, normocephalic, symmetric Eyes: EOMI, no lid lag, anicteric sclera, pupils equal round reactive to light ENT: Nose and ears atraumatic Neck: No cervical lymphadenopathy, trachea midline, supple Mouth: no lip lesion, mucus membranes moist Cardiovascular: S1S2 reg, no murmur, positive dorsalis pedis pulse bilateral, no edema Lungs: Decreased air entry bilaterally, no rhonchi, no rales, no accessory muscle use Abdominal: soft, nontender to palpation, no guarding Ext: muscle strength 5 out of 5 in all 4 extremities grossly, no gross muscle atrophy, no contractures, Neuro: CN II-XI grossly intact, no gross focal neuro deficits Psych: Alert, oriented, appropriate affect Data Reveiwed Today: Patient Labs: Imaging: No new imaging. Assesment: 83-year-old female with a past medical history of abdominal aortic aneurysm status postrepair, CAD status post CABG, esophageal bleeding, type 2 diabetes, hypertension, and COPD initially presented to the ED with new dark stools and weakness. Patient was admitted for workup of upper GI bleed. Patient received EGD in the hospital and is recovering well. Plan: Acute symptomatic anemia secondary to GI bleed: Hemoglobin last night 11.5 EGD performed showing oozing duodenal AV malformation and 7 mm bleeding gastric AVM malformation both having good hemostasis status post cautery. Received 3 transfusions of PRBC Aspirin restarted, continue to hold Plavix till tomorrow (08/19) Continue Protonix 40 mg IV twice daily On clear liquid diet to be slowly advanced to regular diet by tomorrow Continue IV normal saline 75 cc/h CBC ordered for tomorrow to recheck hemoglobin before potential discharge Type 2 diabetes: Discontinued home medication, currently on sliding scale short acting insulin Glucose 86 Elevated LFT: AST 45 which is increased from her baseline CT abdomen shows cirrhotic liver with nodular contour but no suspicion for malignancy Continue to monitor LFTs Elevated BUN likely secondary to blood loss: Resolved BUN 15, creatinine 1.61, GFR a.m. greater than 90 Macrocytic anemia: Resolved MCV of 96.1 Potentially irregular due to previously active GI bleeding. B12 569 Iron 47, TIBC 442, percent saturation 10.63, transferrin 316. Chronic: Hypertension and COPD controlled with continued home medication F normal saline 75 cc/h and 1 PRBC E none N clear liquid diet to be advanced to regular diet by tomorrow A mechanical SCDs DVT ppx: None due to GI bleed Code Status: Full code Anticipated discharge place: To home Anticipated discharge time: Likely 08/19 pending clinical course Objective - Vital Signs Vital signs: Vital Signs Temp 97.9 F 08/20/23 04:00 Pulse 75 08/20/23 04:00 Resp 18 08/20/23 04:00 BP 161/69 08/20/23 04:00 Pulse Ox 92 L 08/20/23 04:00 FiO2 Intake & Output 08/19/23 08/20/23 08/20/23 18:59 06:59 18:59 Intake Total 100 Balance 100 Weight 55.6 kg Intake: IV 100 Other: Voiding Method Toilet Toilet # Voids 3 3 - Labs CBC & Chem 7: 08/19/23 07:26 08/19/23 07:26 Labs: Abnormal Lab Results - Last 24 Hours (Table) 08/17/23 08/19/23 08/19/23 Range/Units 14:37 07:26 07:26 RBC 3.78 L (3.80-5.40) m/uL RDW 18.1 H (11.5-15.5) % Potassium 3.0 L (3.5-5.1) mmol/L Chloride 109 H (98-107) mmol/L POC Glucose (mg/dL) (70-110) mg/dL Magnesium (1.6-2.3) mg/dL RBC Folate 1,346 H (280 - 791) ng/mL 08/19/23 08/19/23 08/19/23 Range/Units 07:26 16:47 19:54 RBC (3.80-5.40) m/uL RDW (11.5-15.5) % Potassium (3.5-5.1) mmol/L Chloride (98-107) mmol/L POC Glucose (mg/dL) 129 H 137 H (70-110) mg/dL Magnesium 1.4 L (1.6-2.3) mg/dL RBC Folate (280 - 791) ng/mL 08/20/23 Range/Units 06:09 RBC (3.80-5.40) m/uL RDW (11.5-15.5) % Potassium (3.5-5.1) mmol/L Chloride (98-107) mmol/L POC Glucose (mg/dL) 111 H (70-110) mg/dL Magnesium (1.6-2.3) mg/dL RBC Folate (280 - 791) ng/mL
[2023-08-20 07:29] VITALS: BP 134/89; PULSE 79; TEMP 98.3
[2023-08-20 07:37] LABS: Anisocytosis Slight; HCT 35.7 % (34.0-46.0); HGB 11.3 gm/dL (11.4-16.0); Hypochromasia Slight; MCH 31.1 pg (25.0-35.0); MCHC 31.8 g/dL (31.0-37.0); MCV 97.8 fL (80.0-100.0); Macrocytosis Slight; Mean Platelet Volume 7.8; Platelet Count 198 k/uL (150-450); RBC 3.65 m/uL (3.80-5.40); RDW 17.2 % (11.5-15.5); WBC 6.3 k/uL (3.8-10.6)
[2023-08-20 07:56] LABS: African American GFR (CKD) >90 (>60 ml/min/1.73 sqM); Anion Gap 7 mmol/L; Blood Urea Nitrogen 9 mg/dL (7-17); Calcium 8.8 mg/dL (8.4-10.2); Carbon Dioxide 26 mmol/L (22-30); Chloride 106 mmol/L (98-107); Glucose 113 mg/dL (74-99); Magnesium 1.7 mg/dL (1.6-2.3); Non-African American GFR(CKD) 87 (>60 ml/min/1.73 sqM); Potassium 3.6 mmol/L (3.5-5.1); Sodium 139 mmol/L (137-145)
[2023-08-20 11:30] LABS: Glucose,Whole Blood 193 mg/dL (70-110)
--- NOTE | 2023-08-20 11:58 | P.DS ---
Providers Date of admission: 08/17/23 19:27 Discharge Diagnosis: Acute symptomatic anemia secondary to GI bleed Type 2 diabetes Transaminitis Elevated BUN likely secondary to blood loss Macrocytic anemia Hospital Course: 83-year-old female with a past medical history of abdominal aortic aneurysm status postrepair, CAD status post CABG, esophageal bleeding, type 2 diabetes, hypertension, and COPD initially presented to the ED with new dark stools and weakness. Patient admitted to chest pain, shortness of breath, and dizziness but denied fever, chills, shortness of breath, wheezing, heart palpitations, diaphoresis, vomiting, diarrhea, constipation, urgency or frequency of urination, swelling, numbness or tingling in lower extremities. In the ED patient's vitals were stable. EKG done in the ER shows heart rate of 76 bpm, sinus rhythm with occasional PVC, nonspecific ST and T wave abnormality, normal RR progression, no QTc prolongation. Laboratory evaluation shows WBC 6.2, hemoglobin 7.6, hematocrit 23.6, MCV 103.2, platelet 221, PT 10.5, INR 0.9, APTT 23.6, sodium 138, potassium 4.1, chloride 103, bicarb 27, BUN 49, creatinine 103, EGFR 51, glucose 131, calcium 10.8, AST 45, ALT 15, total bilirubin 0.5, stool occult blood positive. Patient was admitted for workup of upper GI bleed, blood loss anemia, and melena. While admitted, patient received 3 PRBCs which increased her hemoglobin after further lab testing to 11.3. 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 An additional finding from the EGD was a small hiatal hernia but no evidence of peptic ulcer disease. On Tuesday (08/19) patient had her diet advanced to regular diet which she consumed well and tolerated well. Patient's Plavix was held during admission but will be continued at home. Patient's aspirin was continued on second day of hospital stay after completing the EGD. Patient now has a hemoglobin of 11.3 and is tolerating food well so is fit for discharge. Patient will be discharged home. Patient advised to follow-up with PCP and GI. Pt seen and examined at bedside: Patient doing well this morning, eating breakfast and has a stable hemoglobin of 11.2. Patient reported having 2 dark color stools this morning, she reports these are photoengraving helper than the previous stool she had. Ready for discharge. Vital signs reveiwed and stable: Vital signs reviewed General: non toxic, no distress, appears at stated age, underweight Derm: no unusual rashes/lesions, warm Head: atraumatic, normocephalic, symmetric Eyes: EOMI, no lid lag, anicteric sclera, pupils equal round reactive to light ENT: Nose and ears atraumatic Neck: No cervical lymphadenopathy, trachea midline, supple Mouth: no lip lesion, mucus membranes moist Cardiovascular: S1S2 reg, occasional extra beats, no murmur, positive dorsalis pedis pulse bilateral, no edema Lungs: Decreased breath sounds bilaterally, no rhonchi, no rales, no accessory muscle use Abdominal: soft, nontender to palpation, no guarding, no gross bleeding from the surgical side, no erythema or discharge. Ext: muscle strength 5 out of 5 in all 4 extremities grossly, no gross muscle atrophy, no contractures, Neuro: CN II-XI grossly intact, no gross focal neuro deficits Psych: Alert, oriented, appropriate affect A total of [] minutes were spent preparing this complex discarge summary. Patient was discharged on []. Attending physician: Franco Hardin MD Consults: 08/17/23 19:15 Consult Physician Routine Consulting Provider: Yenny Retana Consult Reason/Comments: upper gi bleed Do you want consulting provider notified?: Yes Primary care physician: [facility] Course: I have seen and evaluated the patient today. Discussed with the resident and agree with the residents subjective and objective as documented in the resident's note. The assessment and plan was discussed and outlined as below. Patient with no complaints. Daughter at bedside. CBC RBC 3.65, Hg 11.3. BMP glu 113. Can restart Plavix along with ASA. Plans for discharge home today. B12 and Folate within normal limits. Iron 47. Follow up with PCP within 1-2 days and GI within 1 week of discharge. Continue Protonix 40 mg PO BID on discharge. Discharge Diagnosis: Upper GI bleed due to bleeding AV malformation requiring cautery during EGD Patient Condition at Discharge: Stable Plan - Discharge Summary Discharge Rx Participant: Yes New Discharge Prescriptions: Continue Vitamin B Complex 1 cap PO DAILY Ascorbic Acid [Vitamin C] 1,000 mg PO DAILY Krill/Om-3/Dha/Epa/Phospho/Ast [[place]-3 Krill Oil 300 mg Sfgl] 1 cap PO DAILY Ergocalciferol (Vitamin D2) [Drisdol (50,000 Iu)] 1,250 mcg PO Q14D Nitroglycerin Sl Tabs [Nitrostat] 0.4 mg SUBLINGUAL Q5M PRN PRN Reason: Chest Pain Budesonide/Formoterol Fumarate [Symbicort 160-4.5 Mcg Inhaler] 2 puff INHALATION RT-BID Albuterol Sulfate [Ventolin HFA] 2 puff INHALATION RT-Q4H PRN PRN Reason: Shortness Of Breath Metoprolol Tartrate [Lopressor] 50 mg PO BID Fluticasone Nasal [place] [Flonase Nasal [place]] 2 spray EA NOSTRIL DAILY Clopidogrel [Plavix] 75 mg PO DAILY Gabapentin 600 mg PO DAILY Ferrous Sulfate [Slow Release Iron] 140 mg PO DAILY DULoxetine HCL [Cymbalta] 60 mg PO DAILY Aspirin EC [Ecotrin Low Dose] 81 mg PO DAILY Loratadine [Claritin] 10 mg PO DAILY Propylene Glycol/Peg 400/Pf [Systane 0.3-0.4% Ophth Dropperette] 1 drop BOTH EYES QID PRN PRN Reason: Dry Eye(S) Vit C/E/Zn/Coppr/Lutein/Zeaxan [Preservision Areds 2 Softgel] 1 cap PO BID Potassium Chloride ER [K-Dur 20] 20 meq PO DAILY Pantoprazole [Protonix] 40 mg PO DAILY metFORMIN HCL [Glucophage] 500 mg PO BID-W/MEALS hydroCHLOROthiazide 12.5 mg PO DAILY Lovastatin [Mevacor] 80 mg PO HS hydrOXYzine HCL [Atarax] 25 - 50 mg PO HS PRN PRN Reason: INSOMNIA/STRESS Losartan [Cozaar] 50 mg PO DAILY Ipratropium [place] 0.06%Nasal [Atrovent Nasal 0.06%] 2 spray EA NOSTRIL TID gemfibroziL [Lopid] 600 mg PO BID-W/MEALS Discharge Medication List Albuterol Sulfate [Ventolin HFA] 2 puff INHALATION RT-Q4H PRN 08/17/23 [History] Ascorbic Acid [Vitamin C] 1,000 mg PO DAILY 08/17/23 [History] Aspirin EC [Ecotrin Low Dose] 81 mg PO DAILY 08/17/23 [History] Budesonide/Formoterol Fumarate [Symbicort 160-4.5 Mcg Inhaler] 2 puff INHALATION RT-BID 08/17/23 [History] Clopidogrel [Plavix] 75 mg PO DAILY 08/17/23 [History] DULoxetine HCL [Cymbalta] 60 mg PO DAILY 08/17/23 [History] Ergocalciferol (Vitamin D2) [Drisdol (50,000 Iu)] 1,250 mcg PO Q14D 08/17/23 [History] Ferrous Sulfate [Slow Release Iron] 140 mg PO DAILY 08/17/23 [History] Fluticasone Nasal [place] [Flonase Nasal [place]] 2 spray EA NOSTRIL DAILY 08/17/23 [History] Gabapentin 600 mg PO DAILY 08/17/23 [History] Ipratropium [place] 0.06%Nasal [Atrovent Nasal 0.06%] 2 spray EA NOSTRIL TID 08/17/23 [History] Krill/Om-3/Dha/Epa/Phospho/Ast [[place]-3 Krill Oil 300 mg Sfgl] 1 cap PO DAILY 08/17/23 [History] Loratadine [Claritin] 10 mg PO DAILY 08/17/23 [History] Losartan [Cozaar] 50 mg PO DAILY 08/17/23 [History] Lovastatin [Mevacor] 80 mg PO HS 08/17/23 [History] Metoprolol Tartrate [Lopressor] 50 mg PO BID 08/17/23 [History] Nitroglycerin Sl Tabs [Nitrostat] 0.4 mg SUBLINGUAL Q5M PRN 08/17/23 [History] Pantoprazole [Protonix] 40 mg PO DAILY 08/17/23 [History] Potassium Chloride ER [K-Dur 20] 20 meq PO DAILY 08/17/23 [History] Propylene Glycol/Peg 400/Pf [Systane 0.3-0.4% Ophth Dropperette] 1 drop BOTH EYES QID PRN 08/17/23 [History] Vit C/E/Zn/Coppr/Lutein/Zeaxan [Preservision Areds 2 Softgel] 1 cap PO BID 08/17/23 [History] Vitamin B Complex 1 cap PO DAILY 08/17/23 [History] gemfibroziL [Lopid] 600 mg PO BID-W/MEALS 08/17/23 [History] hydrOXYzine HCL [Atarax] 25 - 50 mg PO HS PRN 08/17/23 [History] hydroCHLOROthiazide 12.5 mg PO DAILY 08/17/23 [History] metFORMIN HCL [Glucophage] 500 mg PO BID-W/MEALS 08/17/23 [History] Follow up Appointment(s)/Referral(s): Olayinka Jain DO [Primary Care Provider] - 1-2 days Yenny Retana MD [STAFF PHYSICIAN] - 1 Week Patient Instructions/Handouts: Gastrointestinal Bleeding (DC), Anemia (DC), Upper Endoscopy (DC) Discharge Disposition: HOME SELF-CARE
== END 2023-08-20 12:23 | disposition home or self-care (01) | DRG 378 ==
LOC: EC 13:45 → 3SCARD 19:27
PROVIDERS: ADMIT Internal Medicine; ATTEND Internal Medicine
PROC: 30233N1 Transfusion of Nonautologous Red Blood Cells into Peripheral Vein, Percutaneous Approach (ICD-10-PCS; 2023-08-18)
PROC: 0W3P8ZZ Control Bleeding in Gastrointestinal Tract, Via Natural or Artificial Opening Endoscopic (ICD-10-PCS; principal; 2023-08-19 07:00)
DX: K31.811 Angiodysplasia of stomach and duodenum with bleeding (principal); D62 Acute posthemorrhagic anemia; T82.310A Breakdown (mechanical) of aortic (bifurcation) graft (replacement), initial encounter; I71.40 Abdominal aortic aneurysm, without rupture, unspecified; I25.10 Atherosclerotic heart disease of native coronary artery without angina pectoris; K74.60 Unspecified cirrhosis of liver; I10 Essential (primary) hypertension; J44.9 Chronic obstructive pulmonary disease, unspecified; R74.01 Elevation of levels of liver transaminase levels; K44.9 Diaphragmatic hernia without obstruction or gangrene; K21.9 Gastro-esophageal reflux disease without esophagitis; I49.3 Ventricular premature depolarization; E78.5 Hyperlipidemia, unspecified; E11.9 Type 2 diabetes mellitus without complications; R79.9 Abnormal finding of blood chemistry, unspecified; E86.0 Dehydration; Z95.1 Presence of aortocoronary bypass graft; Z87.891 Personal history of nicotine dependence; Z87.11 Personal history of peptic ulcer disease; Z79.899 Other long term (current) drug therapy; Z79.84 Long term (current) use of oral hypoglycemic drugs; Z79.82 Long term (current) use of aspirin; Z79.51 Long term (current) use of inhaled steroids; Z79.02 Long term (current) use of antithrombotics/antiplatelets; Z88.2 Allergy status to sulfonamides; Z88.1 Allergy status to other antibiotic agents; Z88.5 Allergy status to narcotic agent; Z95.5 Presence of coronary angioplasty implant and graft
CPT/HCPCS: 36415; 36430; 43270; 74177; 80048; 80053; 82272; 82607; 82747; 83036; 83540; 83550; 83735; 85025; 85027; 85610; 85730; 86850; 86900; 86901; 86920; 93005; 94640; 94760; 96361; 96374; 96376; 99291

== ENCOUNTER → 2023-08-29 | Outpatient (CLI) | payer MEDICARE, OTHER ==
--- NOTE | 2023-08-30 13:47 | MM ---
Reason for Exam: Screening (asymptomatic). Last screening mammogram was performed 12 month(s) ago. Patient History: Menarche at age 14. First Full-Term at age 19. Left ovary removed at age 45. Right ovary removed at age 45. Hysterectomy at age 45. Postmenopausal. Breast cancer, right, age 76. 08/05/2016, Lumpectomy on the Right side. Prior Study Comparison: 08/21/2020 Bilateral Screening Mammogram, [facility]. 08/24/2021 Bilateral MG 3D screening mammo w/cad, [facility]. 08/25/2022 Bilateral MG 3D screening mammo w/cad, [facility]. Tissue Density: The breasts are heterogeneously dense, which may obscure small masses. Findings: Analyzed By CAD. There is no suspicious group of microcalcifications or new suspicious mass in either breast. Overall Assessment: Benign, BI-RAD 2 Management: Screening Mammogram of both breasts in 1 year. . Patient should continue monthly self-breast exams. A clinical breast exam by your physician is recommended on an annual basis. This exam should not preclude additional follow-up of suspicious palpable abnormalities. Note on Liza scores and lifetime risk: 1. A Liza score greater than 3% is considered moderate risk. If this is the case, consider specialist referral to assess eligibility for a risk reducing agent. 2. If overall lifetime risk for the development of breast cancer is 20% or higher, the patient may qualify for future screening with alternating mammogram and breast MRI. Electronically signed and approved by: Reilly Vidal M.D. Radiologis
== END | disposition home or self-care (01) ==
LOC: RADMAMWWP 13:09
PROVIDERS: ATTEND Internal Medicine
DX: Z12.31 Encounter for screening mammogram for malignant neoplasm of breast (principal); R92.333 Mammographic heterogeneous density, bilateral breasts; Z78.0 Asymptomatic menopausal state
CPT/HCPCS: 77063; 77067

== ENCOUNTER → 2023-08-29 | Outpatient (CLI) | payer MEDICARE, OTHER ==
--- NOTE | 2023-08-29 14:59 | CT ---
EXAMINATION TYPE: CT brain wo con CT DLP: 1054.20 mGycm, Automated exposure control for dose reduction was used. DATE OF EXAM: 08/29/2023 1:55 PM COMPARISON: . CLINICAL INDICATION:Female, 83 years old with history of R51.9 HEADACHE, ridge/ indentation on top of head. No known injury. Patient states she has headaches as well. TECHNIQUE: Brain: Axial CT images of the brain were obtained with coronal and sagittal reformats created and rev iewed. Contrast used: None. Oral contrast used: None. FINDINGS: Brain: Extra-axial spaces: No abnormal extra-axial fluid collections. Ventricular system: Prominent ventricles and sulci are suggesting involutional change. Cerebral parenchyma: No acute intraparenchymal hemorrhage or mass effect. The taylor-white junction is well differentiated. Scattered hypoattenuating areas are seen within the white matter indicating age -related chronic microangiopathy.. Cerebellum: Unremarkable. Mass effect: No evidence of midline shift. Intracranial vasculature: unremarkable Soft tissues: Normal. Calvarium/osseous structures: No depressed skull fracture. On sagittal imaging there is a subtle, sli ght ridge which appears related to the coronal suture. Not likely of any clinical significance. Paranasal sinuses and mastoid air cells: Mild scattered paranasal sinus disease. Visualized orbits: Orbital contents are intact. IMPRESSION: No acute intracranial process. Age-related findings. Subtle ridge appears associated to a portion of the coronal suture not likely of any clinical signifi cance.
== END | disposition home or self-care (01) ==
LOC: RADCTMAIN 13:32
PROVIDERS: ATTEND Internal Medicine
DX: R51.9 Headache, unspecified (principal)
CPT/HCPCS: 70450

== ENCOUNTER → 2023-10-18 | Outpatient (CLI) | payer MEDICARE, OTHER ==
[2023-10-18 10:05] LABS: Ionized Calcium 4.9 mg/dL (4.5-5.3)
[2023-10-18 10:15] LABS: Anisocytosis Slight; Basophils % (A) 1 %; Eosinophils # (A) 0.2 k/uL (0-0.7); Eosinophils % (A) 6 %; HCT 32.9 % (34.0-46.0); HGB 10.5 gm/dL (11.4-16.0); Hypochromasia Slight; Lymphocytes # (A) 1.4 k/uL (1.0-4.8); Lymphocytes % (A) 33 %; MCH 31.6 pg (25.0-35.0); MCHC 31.7 g/dL (31.0-37.0); MCV 99.4 fL (80.0-100.0); Macrocytosis Slight; Mean Platelet Volume 7.5; Monocytes # (A) 0.5 k/uL (0-1.0); Monocytes % (A) 11 %; Neutrophils # (A) 1.8 k/uL (1.3-7.7); Neutrophils % (A) 45 %; Platelet Count 250 k/uL (150-450); RBC 3.31 m/uL (3.80-5.40); RDW 16.6 % (11.5-15.5); WBC 4.1 k/uL (3.8-10.6)
[2023-10-18 10:38] LABS: African American GFR (CKD) 54 (>60 ml/min/1.73 sqM); Anion Gap 8 mmol/L; Blood Urea Nitrogen 22 mg/dL (7-17); Calcium 9.5 mg/dL (8.4-10.2); Carbon Dioxide 31 mmol/L (22-30); Chloride 103 mmol/L (98-107); Glucose 80 mg/dL (74-99); Non-African American GFR(CKD) 47 (>60 ml/min/1.73 sqM); Potassium 4.7 mmol/L (3.5-5.1); Sodium 142 mmol/L (137-145)
[2023-10-18 15:27] LABS: Protein, Total 6.4 g/dL (6.2-8.2)
[2023-10-29 07:46] LABS: Albumin 3.82 g/dL (3.80-4.90); Gamma Globulin 0.72 g/dL (0.70-1.50)
== END | disposition home or self-care (01) ==
LOC: LABWHC1 08:16
PROVIDERS: ATTEND Internal Medicine
DX: E83.52 Hypercalcemia (principal)
CPT/HCPCS: 36415; 80048; 82306; 82330; 82652; 83970; 84165; 85025

== ENCOUNTER → 2023-11-11 | Outpatient (CLI) | payer MEDICARE, OTHER ==
--- NOTE | 2023-11-11 22:06 | NM ---
EXAMINATION TYPE: NM parathyroid w/spect DATE OF EXAM: 11/11/2023 COMPARISON: NONE CLINICAL INDICATION: Female, 83 years old with history of E21.3 HYPERPARATHYROIDISM, UNSPECIFIED; TECHNIQUE: Following administration of 23.9 mCi Tc99m Sestamibi. Anterior projection images of the neck and ches t were obtained 10 minutes and 3 hours post injection. SPECT images of the neck and chest were obtai carole and reconstructed in three axes. FINDINGS: Thyroid tracer washout: Delayed images demonstrate near-complete tracer washout from the thyroid. Parathyroid uptake: None. The two-hour delayed images do not demonstrate any focal abnormal persisten t uptake in the region of the parathyroid glands to suggest parathyroid adenoma. Normal uptake: There is physiological tracer uptake in the myocardium, liver, salivary glands, and th yroid gland. IMPRESSION: Normal parathyroid imaging study. No evidence for mediastinal uptake to suggest mediastinal parathyro id adenoma [facility], , 11/11/2023 10:03 PM
== END | disposition home or self-care (01) ==
LOC: RADNMMAIN 10:51
PROVIDERS: ATTEND Internal Medicine
DX: E21.3 Hyperparathyroidism, unspecified (principal)
CPT/HCPCS: 78071; A9500

== ENCOUNTER → 2024-01-16 | Outpatient (CLI) | payer MEDICARE, OTHER ==
--- NOTE | 2024-01-16 13:07 | XR ---
EXAMINATION TYPE: XR bone survey complete DATE OF EXAM: 01/16/2024 12:48 PM COMPARISON: None CLINICAL INDICATION: Female, 83 years old with history of D47.2 monoclonal gammopathy; [facility] TECHNIQUE: Several radiographics images of the axial and appendicular spine were obtained in multipl e projections. FINDINGS: Skull: No lytic or sclerotic lesions are identified. Spine: No lytic or sclerotic lesions are identified. The pedicles are intact. There are no fractures, dislocations or subluxations. Multilevel degeneration changes throughout spine with joint space narr owing osteophyte formation. Chest: No lytic or sclerotic lesions are identified. The ribs have a normal appearance. Right upper lung calcified nodule. Sternotomy wires present. Abdomen/Pelvis: No lytic or sclerotic lesions are identified. Stent grafts throughout the distal/infe rior aorta and bilateral common iliac arteries. Right upper quadrant course vasectomy clips. Coronary stent grafts present. Atherosclerosis of the aorta. Left pelvic surgical clip. Extremities: No lytic or sclerotic lesions are identified. IMPRESSION: 1. No suspicious lytic or sclerotic lesions. 2. Calcified granulomas in the lungs. [facility], , 01/16/2024 1:04 PM
== END | disposition home or self-care (01) ==
LOC: RADXRMAIN 12:21
PROVIDERS: ATTEND Internal Medicine Hematology & Oncology
DX: D47.2 Monoclonal gammopathy (principal); R91.8 Other nonspecific abnormal finding of lung field
CPT/HCPCS: 77075

== ENCOUNTER 2024-02-14 04:59 | Inpatient (IN) | payer MEDICARE, OTHER ==
--- NOTE | 2024-02-14 05:22 | ED ---
General Adult HPI - General Chief complaint: Shortness of Breath Stated complaint: EMELIA, vomiting blood Time Seen by Provider: 02/14/24 05:13 Source: patient, family Mode of arrival: wheelchair Limitations: no limitations - History of Present Illness Initial comments: Dictation was produced using [employer] dictation software. please excuse any grammatical, word or spelling errors. Chief Complaint: 83-year-old female with multiple comorbidities presents e mergency department with cough wheezing History of Present Illness: Patient is 83-year-old female with multiple comorbidities. Patient is history of diabetes dyslipidemia hypertension. Patient has been sick for approximately 1 week. Over the last 24 hours patient has had worsening cough including hemoptysis and sputum production. Patient does report fever constitutional symptoms. Denies any chest pain. Patient is remote history of tobacco use The ROS documented in this emergency department record has been reviewed and confirmed by me. Those systems with pertinent positive or negative responses have been documented in the HPI. All other systems are other negative and/or noncontributory. - Related Data Home Medications Medication Instructions Recorded Confirmed Albuterol Sulfate [Ventolin HFA] 2 puff INHALATION RT-Q4H PRN 08/17/23 08/17/23 Ascorbic Acid [Vitamin C] 1,000 mg PO DAILY 08/17/23 08/17/23 Aspirin EC [Ecotrin Low Dose] 81 mg PO DAILY 08/17/23 08/17/23 Budesonide/Formoterol Fumarate 2 puff INHALATION RT-BID 08/17/23 08/17/23 [Symbicort 160-4.5 Mcg Inhaler] Clopidogrel [Plavix] 75 mg PO DAILY 08/17/23 08/17/23 DULoxetine HCL [Cymbalta] 60 mg PO DAILY 08/17/23 08/17/23 Ergocalciferol (Vitamin D2) 1,250 mcg PO Q14D 08/17/23 08/17/23 [Drisdol (50,000 Iu)] Ferrous Sulfate [Slow Release Iron] 140 mg PO DAILY 08/17/23 08/17/23 Fluticasone Nasal [place] [Flonase 2 spray EA NOSTRIL DAILY 08/17/23 08/17/23 Nasal [place]] Gabapentin 600 mg PO DAILY 08/17/23 08/17/23 Ipratropium [place] 0.06%Nasal 2 spray EA NOSTRIL TID 08/17/23 08/17/23 [Atrovent Nasal 0.06%] Krill/Om-3/Dha/Epa/Phospho/Ast 1 cap PO DAILY 08/17/23 08/17/23 [Effie-3 Krill Oil 300 mg Sfgl] Loratadine [Claritin] 10 mg PO DAILY 08/17/23 08/17/23 Losartan [Cozaar] 50 mg PO DAILY 08/17/23 08/17/23 Lovastatin [Mevacor] 80 mg PO HS 08/17/23 08/17/23 Metoprolol Tartrate [Lopressor] 50 mg PO BID 08/17/23 08/17/23 Nitroglycerin Sl Tabs [Nitrostat] 0.4 mg SUBLINGUAL Q5M PRN 08/17/23 08/17/23 Pantoprazole [Protonix] 40 mg PO DAILY 08/17/23 08/17/23 Potassium Chloride ER [K-Dur 20] 20 meq PO DAILY 08/17/23 08/17/23 Propylene Glycol/Peg 400/Pf 1 drop BOTH EYES QID PRN 08/17/23 08/17/23 [Systane 0.3-0.4% Ophth Dropperette] Vit C/E/Zn/Coppr/Lutein/Zeaxan 1 cap PO BID 08/17/23 08/17/23 [Preservision Areds 2 Softgel] Vitamin B Complex 1 cap PO DAILY 08/17/23 08/17/23 gemfibroziL [Lopid] 600 mg PO BID-W/MEALS 08/17/23 08/17/23 hydrOXYzine HCL [Atarax] 25 - 50 mg PO HS PRN 08/17/23 08/17/23 hydroCHLOROthiazide 12.5 mg PO DAILY 08/17/23 08/17/23 metFORMIN HCL [Glucophage] 500 mg PO BID-W/MEALS 08/17/23 08/17/23 Allergies Allergy/AdvReac Type Severity Reaction Status Date / Time Sulfa (Sulfonamide Allergy Unknown Verified 02/14/24 05:03 Antibiotics) sulfacetamide Allergy Unknown Verified 02/14/24 05:03 [From Sulfamide] Tetracyclines Allergy Unknown Verified 02/14/24 05:03 tramadol Allergy Itching Verified 02/14/24 05:03 Review of Systems ROS Statement: Those systems with pertinent positive or pertinent negative responses have been documented in the HPI. ROS Other: All systems not noted in ROS Statement are negative. Past Medical History Past Medical History: Cancer, Diabetes Mellitus, Hyperlipidemia, Hypertension History of Any Multi-Drug Resistant Organisms: None Reported Past Surgical History: Cholecystectomy, Coronary Bypass/CABG, Heart C atheterization, Heart Catheterization With Stent Additional Past Surgical History / Comment(s): abdominal aortic aneurysm (Jun 14 2023) Date of Last Stent Placement:: 2006 Past Psychological History: No Psychological Hx Reported Smoking Status: Never smoker Past Alcohol Use History: None Reported Past Drug Use History: None Reported General Exam - General Exam Comments Initial Comments: PHYSICAL EXAM: General Impression: Alert and oriented x3, not in acute distress HEENT: Normocephalic atraumatic, extra-ocular movements intact, pupils equal and reactive to light bilaterally, mucous membranes moist. Cardiovascular: Heart regular rate and rhythm Chest: Able to complete full sentences, no retractions, no tachypnea, right- sided rhonchi Abdomen: abdomen soft, non-tender, non-distended, no organomegaly Musculoskeletal: Pulses present and equal in all extremities, no peripheral edema Motor: no focal deficits noted Neurological: CN II-XII grossly intact, no focal motor or sensory deficits noted Skin: Intact with no visualized rashes Psych: Normal affect and mood Limitations: no limitations Course Vital Signs 02/14/24 02/14/24 05:03 05:29 Temperature 97.9 F Pulse Rate 129 H 102 H Respiratory 16 Rate Blood Pressure 93/59 O2 Sat by Pulse 91 L 93 L Oximetry EKG Findings - EKG Comments: EKG Findings:: My EKG interpretation: Ventricular rate 103, sinus tachycardia,. #1-2, QRS 82, QTc 417. No SC prolongation, no QTC prolongation. QT EKG from August 17, [address] depressions with no ST elevation Procedures - Sepsis Sepsis Focused Exam #1 Time Sepsis Criteria Met: : Sepsis Focused Exam Date: 02/14/24 Sepsis Focused Exam Time: : Sepsis Focused Exam Complete: Yes Vital Signs & RN Notes Reviewed: Yes Capillary Refill: < 2 Seconds: Fingers, Toes Peripheral Pulses: Normal: Radial (R), Radial (L), Posterior Tibialis (R), Posterior Tibialis (L), Dorsalis Pedis (R), Dorsalis Pedis (L) Skin Color: Normal for Patient Respiratory Exam: rhonchi Cardiovascular Exam: tachycardia Medical Decision Making - Medical Decision Making Was pt. sent in by a medical professional or institution ([facility], [facility], urgent care, hospital, or halfway...) When possible be specific @ -No Did you speak to anyone other than the patient for history (EMS, parent, family, police, friend...)? What history was obtained from this source @ -Daughter at the bedside as described above Did you review nursing and triage notes (agree or disagree)? Why? @ -I reviewed and agree with nursing and triage notes Were old charts reviewed (outside hosp., previous admission, EMS record, old EKG, old radiological studies, urgent care reports/EKG's, halfway records)? Report findings @ -No old charts were reviewed Differential Diagnosis (chest pain, altered mental status, abdominal pain women, abdominal pain men, vaginal bleeding, musculoskeletal, weakness, fever, dyspnea, syncope, headache, dizziness, GI bleed, back pain, seizure, CVA, palpatations, mental health)? @ -Differential Dyspnea: Coronary syndrome, arrhythmia, tamponade, asthma, COPD, pulmonary embolism, pneumonia, pneumothorax, pulmonary effusion, anaphylaxis, diabetic ketoacidosis, flailed chest, pulmonary contusion, diaphragmatic rupture, anemia, neuromuscular, this is not meant to be an all-inclusive list. EKG interpreted by me (3pts min.). @ -See above X-rays interpreted by me (1pt min.). @ -Large right middle lobe infiltrate seen on chest x-ray CT interpreted by me (1pt min.). @ -None done U/S interpreted by me (1pt. min.). @ -None done What testing was considered but not performed or refused? (CT, X-rays, U/S, labs)? Why? @ -None What meds were considered but not given or refused? Why? @ -None Was smoking cessation discussed for >3mins.? @ -No Were there social determinants of health that impacted care today? How? (Homelessness, low income, unemployed, alcoholism, drug addiction, transportation, low edu. Level, literacy, decrease access to med. care, longterm, rehab)? @ -No Was there de-escalation of care discussed even if they declined (Discuss DNR or withdrawal of care, Hospice)? DNR status @ -No What co-morbidities impacted this encounter? (DM, HTN, Smoking, COPD, CAD, Cancer, CVA, ARF, Chemo, Hep., AIDS, mental health diagnosis, sleep apnea, morbid obesity)? @ -None Was patient admitted / discharged? Hospital course, mention meds given and route, prescriptions, significant lab abnormalities, going to OR and other pertinent info. @ -83-year-old female with cough shortness of breath. She does report pulmonary infectious symptoms. Vital signs upon arrival shows temperature of 97.9. Tachycardic at 129 with 91% on room air. Patient's initial blood pressure was 93/59. Patient no acute distress at the bedside. Well-appearing not showing signs of dyspnea. Patient does have a initial MAP of 70. There are some concern of sepsis however. Patient given 30 cc/kg bolus. Chest x-ray shows pneumonia. Patient given antibiotics will be admitted.MAP greater than 65. Lactic acid level is 1.4. Magnesium is 1.3. Patient given parenteral magnesium Did you discuss the management of the patient with other professionals (pr ofessionals i.e. , PA, [facility], lab, RT, psych nurse, social service assistant, inventory manager, teacher, banking officer, case making machine operator)? Give summary @ -Discussed with hospitalist admission Was critical care preformed (if so, how long)? @ -No Undiagnosed new problem with uncertain prognosis? @ -No Drug Therapy requiring intensive monitoring for toxicity (Heparin, Nitro, Insulin, Cardizem)? @ -No Were any procedures done? @ -No Diagnosis/symptom? Acute, or Chronic, or Acute on Chronic? Uncomplicated (without systemic symptoms) or Complicated (systemic symptoms)? @ -Pneumonia Side effects of treatment? @ -No Exacerbation, Progression, or Severe Exacerbation? @ -No Poses a threat to life or bodily function? How? (Chest pain, USA, MD, pneumonia, PE, COPD, DKA, ARF, appy, cholecystitis, CVA, Diverticulitis, Homicidal, Suicidal, threat to staff... and all critical care pts) @ -yes - Lab Data Result diagrams: 02/14/24 05:29 02/14/24 05:29 Lab Results 02/14/24 02/14/24 02/14/24 Range/Units 05:29 05:29 05:29 WBC 19.8 H (3.8-10.6) k/uL RBC 3.60 L (3.80-5.40) m/uL Hgb 11.6 (11.4-16.0) gm/dL Hct 34.0 (34.0-46.0) % MCV 94.5 (80.0-100.0) fL MCH 32.2 (25.0-35.0) pg MCHC 34.0 (31.0-37.0) g/dL RDW 13.1 (11.5-15.5) % Plt Count 298 (150-450) k/uL MPV 7.2 Neutrophils % 86 % Lymphocytes % 4 % Monocytes % 7 % Eosinophils % 0 % Basophils % 0 % Neutrophils # 17.1 H (1.3-7.7) k/uL Lymphocytes # 0.8 L (1.0-4.8) k/uL Monocytes # 1.3 H (0-1.0) k/uL Eosinophils # 0.1 (0-0.7) k/uL Basophils # 0.1 (0-0.2) k/uL PT 11.9 (10.0-12.5) sec INR 1.1 (<1.2) APTT 30.7 H (22.0-30.0) sec Sodium 128 L (137-145) mmol/L Potassium 3.4 L (3.5-5.1) mmol/L Chloride 93 L (98-107) mmol/L Carbon Dioxide 17 L (22-30) mmol/L Anion Gap 18 mmol/L BUN 51 H (7-17) mg/dL Creatinine 2.12 H (0.52-1.04) mg/dL Est GFR (CKD-EPI)AfAm 25 (>60 ml/min/1.73 sqM) Est GFR (CKD-EPI)NonAf 21 (>60 ml/min/1.73 sqM) Glucose 143 H (74-99) mg/dL Plasma Lactic Acid Chris (0.7-2.0) mmol/L Calcium 8.4 (8.4-10.2) mg/dL Magnesium 1.3 L (1.6-2.3) mg/dL Total Bilirubin 0.7 (0.2-1.3) mg/dL AST 29 (14-36) U/L ALT 15 (4-34) U/L Alkaline Phosphatase 87 (38-126) U/L Troponin I (0.000-0.034) ng/mL Total Protein 6.4 (6.3-8.2) g/dL Albumin 3.7 (3.5-5.0) g/dL 02/14/24 02/14/24 Range/Units 05:29 05:29 WBC (3.8-10.6) k/uL RBC (3.80-5.40) m/uL Hgb (11.4-16.0) gm/dL Hct (34.0-46.0) % MCV (80.0-100.0) fL MCH (25.0-35.0) pg MCHC (31.0-37.0) g/dL RDW (11.5-15.5) % Plt Count (150-450) k/uL MPV Neutrophils % % Lymphocytes % % Monocytes % % Eosinophils % % Basophils % % Neutrophils # (1.3-7.7) k/uL Lymphocytes # (1.0-4.8) k/uL Monocytes # (0-1.0) k/uL Eosinophils # (0-0.7) k/uL Basophils # (0-0.2) k/uL PT (10.0-12.5) sec INR (<1.2) APTT (22.0-30.0) sec Sodium (137-145) mmol/L Potassium (3.5-5.1) mmol/L Chloride (98-107) mmol/L Carbon Dioxide (22-30) mmol/L Anion Gap mmol/L BUN (7-17) mg/dL Creatinine (0.52-1.04) mg/dL Est GFR (CKD-EPI)AfAm (>60 ml/min/1.73 sqM) Est GFR (CKD-EPI)NonAf (>60 ml/min/1.73 sqM) Glucose (74-99) mg/dL Plasma Lactic Acid Chris 1.4 (0.7-2.0) mmol/L Calcium (8.4-10.2) mg/dL Magnesium (1.6-2.3) mg/dL Total Bilirubin (0.2-1.3) mg/dL AST (14-36) U/L ALT (4-34) U/L Alkaline Phosphatase (38-126) U/L Troponin I 0.023 (0.000-0.034) ng/mL Total Protein (6.3-8.2) g/dL Albumin (3.5-5.0) g/dL Disposition Clinical Impression: Pneumonia Disposition: ADMITTED IP TO THIS [facility] Condition: Serious Referrals: Olayinka Jain DO [Primary Care Provider] - 1-2 days Decision Time: 06:20
[2024-02-14] MEDS: SODIUM CHLORIDE 0.9% 500 ML 500 ML IV STA (05:42)
[2024-02-14 05:56] LABS: Basophils # (A) 0.1 k/uL (0-0.2); Basophils % (A) 0 %; Eosinophils # (A) 0.1 k/uL (0-0.7); Eosinophils % (A) 0 %; HGB 11.6 gm/dL (11.4-16.0); Lymphocytes # (A) 0.8 k/uL (1.0-4.8); Lymphocytes % (A) 4 %; MCH 32.2 pg (25.0-35.0); MCV 94.5 fL (80.0-100.0); Mean Platelet Volume 7.2; Monocytes # (A) 1.3 k/uL (0-1.0); Monocytes % (A) 7 %; Neutrophils # (A) 17.1 k/uL (1.3-7.7); Neutrophils % (A) 86 %; Platelet Count 298 k/uL (150-450); RDW 13.1 % (11.5-15.5); WBC 19.8 k/uL (3.8-10.6)
[2024-02-14] MEDS ORDERED: NALOXONE 0.4 MG/ML 1 ML VIAL IV PRN (06:14)
[2024-02-14 06:15] LABS: ALT 15 U/L (4-34); AST 29 U/L (14-36); African American GFR (CKD) 25 (>60 ml/min/1.73 sqM); Albumin 3.7 g/dL (3.5-5.0); Alkaline Phosphatase 87 U/L (38-126); Anion Gap 18 mmol/L; Blood Urea Nitrogen 51 mg/dL (7-17); Calcium 8.4 mg/dL (8.4-10.2); Carbon Dioxide 17 mmol/L (22-30); Chloride 93 mmol/L (98-107); Glucose 143 mg/dL (74-99); Magnesium 1.3 mg/dL (1.6-2.3); Non-African American GFR(CKD) 21 (>60 ml/min/1.73 sqM); Potassium 3.4 mmol/L (3.5-5.1); Sodium 128 mmol/L (137-145); Total Bilirubin 0.7 mg/dL (0.2-1.3); Total Protein 6.4 g/dL (6.3-8.2)
[2024-02-14 06:23] LABS: INR 1.1 (<1.2); Partial Thromboplastin Time 30.7 sec (22.0-30.0); Prothrombin Time 11.9 sec (10.0-12.5)
--- NOTE | 2024-02-14 06:24 | XR ---
EXAM: XR Chest, 2 Views CLINICAL HISTORY: ITS.REASON XR Reason: cough, hemoptysis TECHNIQUE: Frontal and lateral views of the chest. COMPARISON: No relevant prior studies available. FINDINGS: Lungs: Opacification of the lateral right upper lung. 2 pulmonary nodules are seen within the right lung. 2 right-sided pulmonary nodules one measuring 1.3 cm and a second measuring 7.5 mm. Pleural space: Unremarkable. No pneumothorax. Heart: Mild enlargement of the cardiac silhouette. Mediastinum: Unremarkable. Normal mediastinal contour. Bones/joints: Degenerative changes are seen in the spine and shoulders. No acute fracture. Vasculature: Calcifications overlie the aorta. IMPRESSION: 2 right-sided pulmonary nodules and consolidative opacity seen within the right upper lobe. While this may represent infectious process underlying mass is not excluded. Recommend CT scan for further evaluation.
[2024-02-14 06:45] LABS: Influenza A Not Detected (Not Detectd); Influenza B Not Detected (Not Detectd); RSV Not Detected (Not Detectd)
[2024-02-14] MEDS: SODIUM CHLORIDE 0.9% 1,000 ML IV SCH (06:49)
[2024-02-14] MEDS: SODIUM CHLORIDE 0.9% 1,000 ML IV STA (06:49)
[2024-02-14] MEDS: MAGNESIUM SULFATE-D5W PMX 1 GM in DEXTROSE/WATER 1 100ML.BAG IVPB SCH ×2 (06:49→14:36)
[2024-02-14] MEDS: PIPERACILLIN-TAZOBACTAM 3.375 GM in SODIUM CHLORIDE 0.9% 100 ML IVPB SCH (07:56)
--- NOTE | 2024-02-14 08:00 | CT ---
EXAMINATION TYPE: CT chest wo con DATE OF EXAM: 02/14/2024 COMPARISON: Radiograph same day HISTORY: 83-year-old female shortness of breath, Abnormal xray TECHNIQUE: Contiguous axial scanning of the chest without contrast. Coronal/sagittal reconstructions performed. CT DLP: 214.8mGycm. Automatic exposure control utilized for a dose reduction. FINDINGS: Median sternotomy wires are present with post-CABG changes. Heart normal size without pericardial effusion. Ascending aorta borderline ectatic at 3.6 cm. Moderate atherosclerotic arch calcifications with conve ntional arch vessel branching anatomy. Some ectasia of the mid to lower descending thoracic aorta up tor 2.9 cm. Prominent precarinal lymph node 1 cm shows some internal punctate calcifications. Some additional calcified lower right paratracheal, subcarinal, and right hilar lymph nodes are noted . There is moderate to advanced emphysema. Calcified right upper lobe granuloma also. Additional calcif ied granuloma posterior right lung base. There is confluent airspace opacity posterior right upper lobe and to a lesser extent within the righ t middle lobe. Slight contour nodularity of the liver. Some underlying hepatic cysts are suggested measuring up tor 1 cm. Partially visualized abdominal aortic endovascular stent graft and the very top of a stented in frarenal AAA. Calcified granulomas in the spleen. Bones: Moderate degenerative disc disease mid to lower thoracic spine. IMPRESSION: 1. COPD with advanced emphysema and confluent pneumonia posterior right upper lobe and to a lesser ex tent right middle lobe. 2. Evidence of prior granulomatous disease. 3. Possible underlying cirrhosis. Clinically correlate. 4. Abdominal aortic endovascular stent graft. The very top of the stented infrarenal [place] sac is se en. [place] sac size not assessed on this study. [facility], , 02/14/2024 7:58 AM
[2024-02-14] MEDS: METOPROLOL TARTRATE 5 MG/5 ML VIAL IVP STA (08:48)
[2024-02-14] MEDS: SODIUM CHLORIDE 0.9% 1,000 ML IV ONE (08:48)
[2024-02-14] MEDS: AMIODARONE 360 MG in DEXTROSE 5% IN WATER 200 ML IV ONE (09:41)
[2024-02-14] MEDS ORDERED: CLOPIDOGREL 75 MG TAB PO SCH (10:00)
[2024-02-14] MEDS: METOPROLOL TARTRATE 50 MG TAB PO SCH (10:39)
[2024-02-14] MEDS: ASPIRIN 81 MG PO SCH (10:39)
--- NOTE | 2024-02-14 11:16 | P.HPIM ---
History of Present Illness H&P Date: 02/14/24 Patient is a 83-year-old female with history of COPD, not on oxygen, type 2 diabetes, CAD status post CABG, prior GI bleed, hypertension, abdominal aortic aneurysm s/p repair presenting with shortness of breath, mild productive cough with trace hemoptysis. Daughter is at bedside. Patient claims that she has not been feeling well for the last week, and has a "cold ". She has also been experiencing fevers and chills, shortness of breath worse with exertion, productive cough of thick sputum green. She noticed trace hemoptysis x 2 this morning which prompted her to come to the hospital. She denies any palpitations, had minimal left sided chest pain which felt like pressure while i n the ED. But denies any lightheadedness, abdominal pain, nausea, vomiting. She claims that she has not been eating or drinking much for the last few days. Denies any urinary complaints. In the ED, temperature was 97.9, pulse initially of 129 then increased to 175, blood pressure 93/59, saturating at 91% on room air. WBC 19.8, hemoglobin 11.6, platelet 298, sodium 128, potassium 3.4, bicarb 17, anion gap 18, BUN 51, creatinine 2.12, lactate 1.4, magnesium 1.3, troponin negative x 2. Respiratory viral panel negative. Chest x-ray independently interpreted, shows right upper lobe opacity. Chest CT shows COPD with advanced emphysema, confluent pneumonia posterior right upper lobe and right middle lobe. Initial EKG independently interpreted, shows sinus tachycardia with minimal ST-T wave changes. Repeat EKG shows atrial fibrillation with RVR with significant ST depressions in inferior lateral leads and some T wave flattening in anterior leads. In the ER patient was initially started on antibiotics and was given 1 L of normal saline. Due to elevated heart rate, was given further IV fluids, metoprolol IV 5 mg push given once with slight improvement in heart rate. Blood pressure was still soft, patient started on amiodarone drip. Cardiology was also consulted. Pulmonology consulted by ER. Patient being admitted for as inpatient for community-acquired pneumonia and A-fib RVR. Pertinent positives and negatives as discussed in HPI, a complete review of systems was performed and all other systems are negative. Patient seen and examined at bedside. Vital signs reviewed General: nontoxic, in mild respiratory distress, appears at stated age Derm: warm, dry Head: atraumatic, normocephalic, symmetric Eyes: EOMI, no lid lag, anicteric sclera, pupils equal round reactive to light ENT: Nose and ears atraumatic Neck: No thyromegaly, supple Mouth: no lip lesion, mucus membranes moist Cardiovascular: S1S2 irregular, tachycardic, no murmur, no edema Lungs: Reduced breath sounds in right upper chest, no wheezing, no supplemental oxygen Abdominal: soft, nontender to palpation, no guarding, no appreciable organomegaly Ext: no gross muscle atrophy, muscle strength muscle strength 5 out of 5 in all 4 extremities, no contractures Neuro: CN II-XII grossly intact Psych: Alert, oriented, appropriate affect Assessment/Plan: Active: Sepsis secondary to community-acquired pneumonia Trace hemoptysis Prerenal ORQUIDEA Hypovolemic hyponatremia High anion gap metabolic acidosis -Patient is status post 2 and half liters of normal saline, continue lactated Ringer 125 cc an hour -Antibiotics changed to ceftriaxone 2 g IV every 24 hours, azithromycin 500 mg IV daily. -Sputum cultures, blood cultures, Legionella urine antigen, procalcitonin pending -Hemoglobin stable -Renal ultrasound, urinalysis pending -Repeat BMP ordered -Pulmonology consulted, pending recommendations -Holding hydrochlorothiazide and losartan New onset atrial fibrillation with RVR History of hypertension Hypotension -Patient is status post 5 mg IV push of metoprolol -Continue home metoprolol 50 twice daily -Also started on amiodarone drip -Cardiology consulted, pending recommendations -Continue IV fluids -Echocardiogram and TSH ordered -Holding home antihypertensives -Continue telemetry monitoring Hypomagnesemia Mild hypokalemia -Give another 2 g of IV magnesium sulfate, 20 mill equivalent oral potassium -Repeat labs tomorrow Chronic: Neuropathy COPD, not in exacerbation Dyslipidemia Depression/anxiety GERD The patient is admitted with an anticipated greater than 2 midnight stay as inpatient status for evaluation of community-acquired pneumonia. Surrogate decision-maker: Daughter CODE STATUS: Full code DVT prophylaxis: Subcu heparin Anticipated discharge date: Pending clinical course Anticipated discharge place: Pending clinical course A total of 65 minutes was spent on the care of this complex patient more than 50% of the time was spent in counseling and care coordination. Past Medical History Past Medical History: Cancer, Diabetes Mellitus, Hyperlipidemia, Hypertension History of Any Multi-Drug Resistant Organisms: None Reported Past Surgical History: Cholecystectomy, Coronary Bypass/CABG, Heart Catheterization, Heart Catheterization With Stent Additional Past Surgical History / Comment(s): abdominal aortic aneurysm (Jun 14 2023) Date of Last Stent Placement:: 2006 Past Psychological History: No Psychological Hx Reported Smoking Status: Never smoker Past Alcohol Use History: None Reported Past Drug Use History: None Reported Medications and Allergies Home Medications Medication Instructions Recorded Confirmed Type Albuterol Sulfate [Ventolin HFA] 2 puff INHALATION RT-Q4H PRN 08/17/23 02/14/24 History Ascorbic Acid [Vitamin C] 1,000 mg PO DAILY 08/17/23 02/14/24 History Aspirin EC [Ecotrin Low Dose] 81 mg PO DAILY 08/17/23 02/14/24 History Budesonide/Formoterol Fumarate 2 puff INHALATION RT-BID 08/17/23 02/14/24 History [Symbicort 160-4.5 Mcg Inhaler] Clopidogrel [Plavix] 75 mg PO DAILY 08/17/23 02/14/24 History DULoxetine HCL [Cymbalta] 60 mg PO DAILY 08/17/23 02/14/24 History Ergocalciferol (Vitamin D2) 1,250 mcg PO Q14D 08/17/23 02/14/24 History [Drisdol (50,000 Iu)] Ferrous Sulfate [Slow Release Iron] 140 mg PO DAILY 08/17/23 02/14/24 History Gabapentin 600 mg PO DAILY 08/17/23 02/14/24 History Ipratropium [place] 0.06%Nasal 2 spray EA NOSTRIL TID 08/17/23 02/14/24 History [Atrovent Nasal 0.06%] Krill/Om-3/Dha/Epa/Phospho/Ast 1 cap PO DAILY 08/17/23 02/14/24 History [[place]-3 Krill Oil 300 mg Sfgl] Loratadine [Claritin] 10 mg PO DAILY 08/17/23 02/14/24 History Lovastatin [Mevacor] 80 mg PO HS 08/17/23 02/14/24 History Metoprolol Tartrate [Lopressor] 50 mg PO BID 08/17/23 02/14/24 History Nitroglycerin Sl Tabs [Nitrostat] 0.4 mg SUBLINGUAL Q5M PRN 08/17/23 02/14/24 History Pantoprazole [Protonix] 40 mg PO DAILY 08/17/23 02/14/24 History Potassium Chloride ER [K-Dur 20] 20 meq PO DAILY 08/17/23 02/14/24 History Vit C/E/Zn/Coppr/Lutein/Zeaxan 1 cap PO BID 08/17/23 02/14/24 History [Preservision Areds 2 Softgel] Vitamin B Complex 1 cap PO DAILY 08/17/23 02/14/24 History gemfibroziL [Lopid] 600 mg PO BID-W/MEALS 08/17/23 02/14/24 History hydrOXYzine HCL [Atarax] 50 mg PO HS PRN 08/17/23 02/14/24 History metFORMIN HCL [Glucophage] 500 mg PO BID-W/MEALS 08/17/23 02/14/24 History Cyclosporine (Cequa) 0.09% 1 drop BOTH EYES BID 02/14/24 02/14/24 History Dropperette Losartan [Cozaar] 25 mg PO BID 02/14/24 02/14/24 History guaiFENesin [Mucinex] 600 mg PO Q12H 02/14/24 02/14/24 History hydroCHLOROthiazide [Hydrodiuril] 25 mg PO DAILY 02/14/24 02/14/24 History Allergies Allergy/AdvReac Type Severity Reaction Status Date / Time Sulfa (Sulfonamide Allergy Unknown Verified 02/14/24 08:44 Antibiotics) sulfacetamide Allergy Unknown Verified 02/14/24 08:44 [From Sulfamide] Tetracyclines Allergy Unknown Verified 02/14/24 08:44 tramadol Allergy Itching Verified 02/14/24 08:44 Physical Exam Vitals: Vital Signs Temp Pulse Resp BP Pulse Ox 02/14/24 10:43 124 H 15 113/73 91 L 02/14/24 10:07 147 H 15 118/66 02/14/24 08:50 140 H 20 100/47 99 02/14/24 08:20 176 H 24 115/79 96 02/14/24 08:08 175 H 02/14/24 06:54 95 18 102/58 93 L 02/14/24 05:29 102 H 93 L 02/14/24 05:03 97.9 F 129 H 16 93/59 91 L Intake and Output 02/13/24 02/14/24 02/14/24 22:59 06:59 14:59 Other: Weight 58.513 kg Results CBC & Chem 7: 02/14/24 05:29 02/14/24 05:29 Labs: Abnormal Lab Results - Last 24 Hours (Table) 02/14/24 02/14/24 02/14/24 Range/Units 05:29 05:29 05:29 WBC 19.8 H (3.8-10.6) k/uL RBC 3.60 L (3.80-5.40) m/uL Neutrophils # 17.1 H (1.3-7.7) k/uL Lymphocytes # 0.8 L (1.0-4.8) k/uL Monocytes # 1.3 H (0-1.0) k/uL APTT 30.7 H (22.0-30.0) sec Sodium 128 L (137-145) mmol/L Potassium 3.4 L (3.5-5.1) mmol/L Chloride 93 L (98-107) mmol/L Carbon Dioxide 17 L (22-30) mmol/L BUN 51 H (7-17) mg/dL Creatinine 2.12 H (0.52-1.04) mg/dL Glucose 143 H (74-99) mg/dL Magnesium 1.3 L (1.6-2.3) mg/dL
--- NOTE | 2024-02-14 12:32 | US ---
EXAMINATION TYPE: US kidneys/renal and bladder DATE OF EXAM: 02/14/2024 COMPARISON: CT 08/17/2023 CLINICAL INDICATION: Female, 83 years old with history of ivis; Patient and family deny any signs or s ymptoms; Former smoker, HS HTN, DM, AAA, and cholecystectomy TECHNIQUE: Grayscale imaging of the bilateral kidneys and urinary bladder: FINDINGS: EXAM MEASUREMENTS: Right Kidney: 9.7 x 4.9 x 4.9 cm Left Kidney: 10.0 x 5.0 x 4.5 cm Post Void Residual Volume: NA mL Right Kidney: Simple cystic structure seen = 3.5 x 2.5 x 3.6 cm Left Kidney: wnl, no evidence for hydronephrosis, mass or renal calculus. Bladder: WNL Bilateral Jets seen: Not able to asses; patient could not hold bladder Normal Post Void Residual: NA There is no evidence for hydronephrosis at this point in time. No nephrolithiasis is seen. No danny s are identified. The urinary bladder is anechoic. IMPRESSION: EXAMINATION TYPE: US kidneys/renal and bladder DATE OF EXAM: 02/14/2024 COMPARISON: NONE CLINICAL INDICATION: Female, 83 years old with history of acute kidney injury TECHNIQUE: Grayscale imaging of the bilateral kidneys and urinary bladder: FINDINGS: The right and left kidneys measure 9.7 and 10.0 cm, respectively, without hydronephrosis. At the right lower pole, there is a benign 3.6 cm renal cortical cyst. Bladder shows no gross abnormality. IMPRESSION: No hydronephrosis. Incidental 3.6 cm right renal cyst. [facility], Workstation: [id number], 02/14/2024 12:30 PM
[2024-02-14 12:49] LABS: African American GFR (CKD) 30 (>60 ml/min/1.73 sqM); Anion Gap 14 mmol/L; Blood Urea Nitrogen 49 mg/dL (7-17); Calcium 7.4 mg/dL (8.4-10.2); Carbon Dioxide 18 mmol/L (22-30); Chloride 98 mmol/L (98-107); Glucose 173 mg/dL (74-99); Non-African American GFR(CKD) 26 (>60 ml/min/1.73 sqM); Potassium 3.9 mmol/L (3.5-5.1); Sodium 130 mmol/L (137-145)
[2024-02-14] MEDS: ALBUTEROL NEBULIZED 2.5 MG/3 ML INHALATION PRN (13:37)
[2024-02-14] MEDS: AMIODARONE 200 MG TAB PO SCH (13:38)
[2024-02-14] MEDS: APIXABAN 2.5 MG TABLET PO SCH (13:38)
[2024-02-14] MEDS: POTASSIUM CHLORIDE ER 20 MEQ TAB.ER PO STA (13:38)
[2024-02-14] MEDS: MAGNESIUM SULFATE-D5W PMX 1 GM in DEXTROSE/WATER 1 100ML.BAG IVPB ONE (13:40)
--- NOTE | 2024-02-14 13:40 | P.CRDCN ---
History of Present Illness Consult date: 02/14/24 Reason for Consult (text): New onset atrial fibrillation History of present illness: This is an 83-year-old female patient of Dr. TOI Tellez with past medical history of coronary artery disease status post bypass grafting, hypertension, hyperlip idemia, diabetes mellitus, chronic kidney disease, COPD, remote history of tobacco use and dependence, aortic aneurysm. We have been asked to evaluate the patient for new onset of atrial fibrillation. Patient states that she presented to the hospital due to spitting up blood. She has not had a cough for 1-1/2 weeks. As well has not been feeling well in general and worsening over the past 24 hours with fever, cough, and sputum production. Patient denies having any chest pain. She denies palpitations. Blood pressure 113/73, heart rate 124, pulse ox 91% on room air. Patient is seen today in the emergency center waiting for a bed on the [facility] floor. Patient is status post 2.5, IV magnesium, l of IV fluid status post 1 dose of IV Lopressor 5 mg. Patient has also been started on amiodarone by attending. Regarding abdominal aortic aneurysm, patient underwent graft procedure done in June 2023 and is on Plavix for this. Discussed with the patient and her daughter that we will be stopping the Plavix and placing her on Eliquis. -EKG: Atrial fibrillation 175 bpm -Chest x-ray: 2 right-sided pulmonary nodules and consolidative opacity within the right upper lobe. May represent infectious process or underlying mass not excluded. -CT of the chest: COPD with advanced emphysema, confluent pneumonia posterior right upper lobe and lesser extent right middle lobe, prior granulomatous disease. Possible underlying cirrhosis. Abdominal aortic endovascular stent graft. -Laboratory studies: WBC 19.8, hemoglobin 9.6. Sodium 128, potassium 3.4, CO2 17, BUN 51, creatinine 2.12. Troponin negative x 2. Influenza A, influenza B, RSV, COVID-19 not detected. -Home cardiac medications: Aspirin 81 mg daily, Plavix 75 mg daily, ferrous sulfate daily, hydrochlorothiazide 25 mg daily, losartan 25 mg twice daily, Lovastatin 80 mg at bedtime, metoprolol tartrate 50 mg twice daily, Nitrostat as needed, potassium chloride 20 mill equivalents daily. -Echocardiogram performed in the office on 12/08/2022 revealed EF of 55%, mild to moderate aortic regurgitation, moderate MR, moderate TR, RVSP 38. -Lexiscan Cardiolite stress test performed in the office on 07/22/2020 revealed EF of 60%, mild anterior septal fixed defect. No ischemia. Review Of Systems: At the time of my exam: CONSTITUTIONAL: Denies fever or chills. HEENT: Denies blurred vision, vision changes, or eye pain. Denies hemoptysis CARDIOVASCULAR: Denies chest pain. Denies orthopnea. Denies PND. Denies palpitations RESPIRATORY: Reports hemoptysis, reports cough, reports shortness of breath. GASTROINTESTINAL: Denies abdominal pain. Denies nausea or vomiting. HEMATOLOGIC: Denies bleeding disorders. GENITOURINARY: Denies any blood in urine. SKIN: Denies puritis. Denies rash. Physical examination: Gen: This is this is an 83-year-old female in no acute distress VS: reviewed HEENT: Head is atraumatic, normocephalic. Pupils equal, round. Sclerae is anicteric. NECK: Supple. No JVD. LUNGS: Bilateral wheezing. No intercostal retractions. HEART: Irregular rate and rhythm. No murmur. ABDOMEN: Soft No tenderness. EXTREMITIES: No pedal edema. No calf tenderness. NEUROLOGICAL: Patient is awake, alert and oriented x3. Assessment: New onset paroxysmal atrial fibrillation with RVR Pneumonia Hyponatremia Acute kidney injury Metabolic acidosis Hypomagnesemia Chronic kidney disease Plan: Resume patient's home cardiac medications with the following changes Discontinue Plavix Start patient on Eliquis 2.5 mg twice daily, lower dose due to age and renal function Discontinue amiodarone drip Start patient on oral amiodarone 200 mg 3 times daily Infuse 1 more gram of magnesium sulfate Obtain BNP in the morning and repeat magnesium Obtain 2-D echocardiogram and Doppler study to assess cardiac structure and function Further recommendations to follow based upon clinical course Thank you kindly for this consultation. Nurse practitioner note has been reviewed, I agree with documented findings and plan of care. Patient was seen and examined. Past Medical History Past Medical History: Cancer, Diabetes Mellitus, Hyperlipidemia, Hypertension History of Any Multi-Drug Resistant Organisms: None Reported Past Surgical History: Cholecystectomy, Coronary Bypass/CABG, Heart Catheterization, Heart Catheterization With Stent Additional Past Surgical History / Comment(s): abdominal aortic aneurysm (Jun 14 2023) Date of Last Stent Placement:: 2006 Past Psychological History: No Psychological Hx Reported Smoking Status: Never smoker Past Alcohol Use History: None Reported Past Drug Use History: None Reported Medications and Allergies Home Medications Medication Instructions Recorded Confirmed Type Albuterol Sulfate [Ventolin HFA] 2 puff INHALATION RT-Q4H PRN 08/17/23 02/14/24 History Ascorbic Acid [Vitamin C] 1,000 mg PO DAILY 08/17/23 02/14/24 History Aspirin EC [Ecotrin Low Dose] 81 mg PO DAILY 08/17/23 02/14/24 History Budesonide/Formoterol Fumarate 2 puff INHALATION RT-BID 08/17/23 02/14/24 History [Symbicort 160-4.5 Mcg Inhaler] Clopidogrel [Plavix] 75 mg PO DAILY 08/17/23 02/14/24 History DULoxetine HCL [Cymbalta] 60 mg PO DAILY 08/17/23 02/14/24 History Ergocalciferol (Vitamin D2) 1,250 mcg PO Q14D 08/17/23 02/14/24 History [Drisdol (50,000 Iu)] Ferrous Sulfate [Slow Release Iron] 140 mg PO DAILY 08/17/23 02/14/24 History Gabapentin 600 mg PO DAILY 08/17/23 02/14/24 History Ipratropium [place] 0.06%Nasal 2 spray EA NOSTRIL TID 08/17/23 02/14/24 History [Atrovent Nasal 0.06%] Krill/Om-3/Dha/Epa/Phospho/Ast 1 cap PO DAILY 08/17/23 02/14/24 History [[place]-3 Krill Oil 300 mg Sfgl] Loratadine [Claritin] 10 mg PO DAILY 08/17/23 02/14/24 History Lovastatin [Mevacor] 80 mg PO HS 08/17/23 02/14/24 History Metoprolol Tartrate [Lopressor] 50 mg PO BID 08/17/23 02/14/24 History Nitroglycerin Sl Tabs [Nitrostat] 0.4 mg SUBLINGUAL Q5M PRN 08/17/23 02/14/24 Hi story Pantoprazole [Protonix] 40 mg PO DAILY 08/17/23 02/14/24 History Potassium Chloride ER [K-Dur 20] 20 meq PO DAILY 08/17/23 02/14/24 History Vit C/E/Zn/Coppr/Lutein/Zeaxan 1 cap PO BID 08/17/23 02/14/24 History [Preservision Areds 2 Softgel] Vitamin B Complex 1 cap PO DAILY 08/17/23 02/14/24 History gemfibroziL [Lopid] 600 mg PO BID-W/MEALS 08/17/23 02/14/24 History hydrOXYzine HCL [Atarax] 50 mg PO HS PRN 08/17/23 02/14/24 History metFORMIN HCL [Glucophage] 500 mg PO BID-W/MEALS 08/17/23 02/14/24 History Cyclosporine (Cequa) 0.09% 1 drop BOTH EYES BID 02/14/24 02/14/24 History Dropperette Losartan [Cozaar] 25 mg PO BID 02/14/24 02/14/24 History guaiFENesin [Mucinex] 600 mg PO Q12H 02/14/24 02/14/24 History hydroCHLOROthiazide [Hydrodiuril] 25 mg PO DAILY 02/14/24 02/14/24 History Allergies Allergy/AdvReac Type Severity Reaction Status Date / Time Sulfa (Sulfonamide Allergy Unknown Verified 02/14/24 08:44 Antibiotics) sulfacetamide Allergy Unknown Verified 02/14/24 08:44 [From Sulfamide] Tetracyclines Allergy Unknown Verified 02/14/24 08:44 tramadol Allergy Itching Verified 02/14/24 08:44 Physical Exam Vitals: Vital Signs Temp Pulse Resp BP Pulse Ox 02/14/24 10:43 124 H 15 113/73 91 L 02/14/24 10:07 147 H 15 118/66 02/14/24 08:50 140 H 20 100/47 99 02/14/24 08:20 176 H 24 115/79 96 02/14/24 08:08 175 H 02/14/24 06:54 95 18 102/58 93 L 02/14/24 05:29 102 H 93 L 02/14/24 05:03 97.9 F 129 H 16 93/59 91 L Intake and Output 02/13/24 02/14/24 02/14/24 22:59 06:59 14:59 Other: Weight 58.513 kg Results 02/14/24 05:29 02/14/24 12:24 Cardiac Enzymes 02/14/24 02/14/24 02/14/24 Range/Units 05:29 05:29 09:17 AST 29 (14-36) U/L Troponin I 0.023 <0.012 (0.000-0.034) ng/mL Coagulation 02/14/24 Range/Units 05:29 PT 11.9 (10.0-12.5) sec APTT 30.7 H (22.0-30.0) sec CBC 02/14/24 Range/Units 05:29 WBC 19.8 H (3.8-10.6) k/uL RBC 3.60 L (3.80-5.40) m/uL Hgb 11.6 (11.4-16.0) gm/dL Hct 34.0 (34.0-46.0) % Plt Count 298 (150-450) k/uL Comprehensive Metabolic Panel 02/14/24 Range/Units 05:29 Sodium 128 L (137-145) mmol/L Potassium 3.4 L (3.5-5.1) mmol/L Chloride 93 L (98-107) mmol/L Carbon Dioxide 17 L (22-30) mmol/L BUN 51 H (7-17) mg/dL Creatinine 2.12 H (0.52-1.04) mg/dL Glucose 143 H (74-99) mg/dL Calcium 8.4 (8.4-10.2) mg/dL AST 29 (14-36) U/L ALT 15 (4-34) U/L Alkaline Phosphatase 87 (38-126) U/L Total Protein 6.4 (6.3-8.2) g/dL Albumin 3.7 (3.5-5.0) g/dL Current Medications Generic Name Dose Route Start Last Admin Trade Name Freq PRN Reason Stop Dose Admin Acetaminophen 650 mg 02/14/24 06:14 Acetaminophen Tab 325 Mg Tab PO Q6HR PRN Mild Pain or Fever > 100.5 Albuterol Sulfate 2.5 mg 02/14/24 09:57 Albuterol Nebulized 2.5 Mg/3 Ml INHALATION RT-Q4H PRN Shortness Of Breath Aspirin 81 mg 02/14/24 10:30 02/14/24 10:39 Aspirin 81 Mg PO 81 mg DAILY KAREN Administration Atorvastatin Calcium 20 mg 02/14/24 21:00 Atorvastatin 20 Mg Tab PO HS KAREN Budesonide/Formoterol Fumarate 2 puff 02/14/24 20:00 Symbicort 160-4.5 Mcg Inhaler INHALATION RT-BID KAREN Duloxetine HCl 60 mg 02/15/24 09:00 Duloxetine Hcl 60 Mg Capsule.Dr PO DAILY KAREN Fenofibrate 160 mg 02/15/24 09:00 Fenofibrate 160 Mg Tab PO DAILY [facility] Gabapentin 200 mg 02/15/24 09:00 Gabapentin 100 Mg Cap PO DAILY [facility] Heparin Sodium (Porcine) 5,000 unit 02/14/24 16:00 Heparin Sodium,Porcine 5,000 Unit/Ml 1 Ml Vial SQ Q8HR KAREN Amiodarone HCl 360 mg/ 200 mls @ 33.333 mls/hr 02/14/24 09:00 02/14/24 09:41 Dextrose/Water IV 02/14/24 14:59 1 mg/min .Q6H ONE 33.333 mls/hr Administration Protocol 1 MG/MIN Amiodarone HCl 450 mg/ 250 mls @ 16.667 mls/hr 02/14/24 15:00 Dextrose/Water IV 02/15/24 08:59 .Q15H KAREN Protocol 0.5 MG/MIN Azithromycin 500 mg/ Sodium 250 mls @ 250 mls/hr 02/14/24 12:00 Chloride IVPB 02/16/24 09:59 DAILY KAREN Protocol Ceftriaxone Sodium 2 gm/ 50 mls @ 100 mls/hr 02/14/24 12:00 Sodium Chloride IVPB Q24HR KAREN Protocol Lactated Ringer's 500 mls @ 125 mls/hr 02/14/24 11:15 Lactated Ringers IV .Q4H KAREN Magnesium Sulfate/Dextrose 1 100 mls @ 100 mls/hr 02/14/24 11:15 gm/ IV Solution IVPB 02/14/24 13:14 Q1H KAREN Metoprolol Tartrate 50 mg 02/14/24 10:30 02/14/24 10:39 Metoprolol Tartrate 50 Mg Tab PO 50 mg BID KAREN Administration Naloxone HCl 0.2 mg 02/14/24 06:14 Naloxone 0.4 Mg/Ml 1 Ml Vial IV Q2M PRN Opioid Reversal Pantoprazole Sodium 40 mg 02/15/24 07:30 Pantoprazole 40 Mg Tablet PO [id number] KAREN Intake and Output 02/13/24 02/14/24 02/14/24 22:59 06:59 14:59 Other: Weight 58.513 kg 02/14/24 05:29 02/14/24 05:29
[2024-02-14] MEDS: AZITHROMYCIN 500 MG in SODIUM CHLORIDE 0.9% 250 ML IVPB SCH (13:47)
[2024-02-14 13:51] LABS: T4, Free (Free Thyroxine) 1.06 ng/dL (0.78-2.19)
[2024-02-14] MEDS: LACTATED RINGERS 500 ML IV SCH (13:53)
[2024-02-14] MEDS ORDERED: AMIODARONE 450 MG in DEXTROSE 5% IN WATER 250 ML IV SCH (15:00)
--- NOTE | 2024-02-14 15:41 | P.CNPUL ---
History of Present Illness Consult date: 02/14/24 Reason for consult: dyspnea, pneumonia History of present illness: This is a 83-year-old female patient with known history of COPD, no history of coronary disease and previous bypass surgery along with previous history of abdominal aortic aneurysm status postsurgical repair along with history of hypertension. The patient presented to the hospital because of worsening shortness of breath. Symptoms started approximately a week ago. The patient felt that she was having symptoms of URI and subsequently she became more short of breath, and she developed increased cough and sputum production and earlier this morning the patient had some trace hemoptysis. She was also experiencing fever and chills along with shortness of breath. Based on those symptoms, the patient ended up coming into the emergency department where chest x-ray was done and showed a large area of consolidation in the right upper lobe consistent with a lobar pneumonia. No altered mentation. No nausea. No emesis. The initial white count was at 19.8 with a hemoglobin of 11.6 and a platelet count of 298. Sodium levels at 128, potassium levels at 3.4, serum bicarb is at 17 with a BUN of 51 and a creatinine of 2.1 consistent with an acute kidney injury. LFTs were normal, troponins were negative, free T4 is at 1.06 and the viral screen/viral 4 Plex was negative. The patient was also noted to be in atrial fibrillation with rapid medical response. The patient was given a liter of bolus of normal saline. The patient was started on IV Rocephin and Zithromax. The patient was given 5 mg of metoprolol IV push and following that the patient was started on amiodarone drip for rate control. The patient is also on anticoagulation with Eliquis 2.5 mg twice a day. In terms of her COPD, the patient has moderately severe disease with an FEV1 of 57% of predicted, maintained on Symbicort on outpatient basis. 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 A CT of the chest was also done in the emergency department and it showed COPD with extensive right upper lobe pulmonary consolidation consistent with pneumonia. The patient had a calcified granuloma in the right upper lobe. There was also evidence of some chronic liver disease probably early cirrhosis. Some hepatic cysts were also seen measuring up to 1 cm in size. Noted the patient also has an abdominal aortic aneurysm and the patient has undergone endovascular stent grafting and the aneurysm was again visualized on the CT of the chest. Currently she is on oxygen at 1.5 L/min nasal cannula. Rate is under better control yet the patient continues to be in atrial fibrillation. Cardiology consultation has been requested. Noted the patient has undergone a previous Cardiolite Lexiscan stress test in the office on 07/22/2020 revealing a normal ejection fraction of 60% with mild anterior septal fixed defect without any reversible ischemia. Review of Systems Constitutional: Reports fatigue, Reports fever, Reports weakness Eyes: denies as per HPI, denies blurred vision, denies bulging eye, denies decreased vision, denies diplopia, denies discharge, denies dry eye, denies irritation, denies itching, denies pain, denies photophobia, denies loss of peripheral vision, denies loss of vision, denies tunnel vision/blind spots Ears: deny: decreased hearing, ear discharge, earache, tinnitus Ears, nose, mouth and throat: Reports as per HPI Breasts: absent: as per HPI, change in shape, gynecomastia, masses, nipple discharge, pain, skin changes, swelling Cardiovascular: Reports decreased exercise tolerance, Reports dyspnea on exertion, Reports irregular heart beat Respiratory: Reports cough, Reports dyspnea, Reports hemoptysis Gastrointestinal: Reports as per HPI Genitourinary: Reports as per HPI Menstruation: Reports as per HPI Musculoskeletal: Reports as per HPI Musculoskeletal: absent: ankle pain, ankle stiffness, ankle swelling, as per HPI, elbow pain, elbow stiffness, elbow swelling, foot pain, foot stiffness, foot swelling, hand pain, hand stiffness, hand swelling, hip pain, hip stiffness, hip swelling, knee pain, knee stiffness, knee swelling, shoulder pain, shoulder stiffness, shoulder swelling, wrist pain, wrist stiffness, wrist swelling Integumentary: Reports as per HPI Neurological: Reports as per HPI Psychiatric: Reports as per HPI Endocrine: Reports as per HPI Hematologic/Lymphatic: Reports as per HPI Allergic/Immunologic: Reports as per HPI Past Medical History Past Medical History: Coronary Artery Disease (CAD), Cancer (Breast cancer post right lumpectomy, 2017), Diabetes Mellitus, Hyperlipidemia, Hypertension Additional Past Medical History / Comment(s): Abdominal aortic aneurysm status post endovascular stent grafting, 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 History of Any Multi-Drug Resistant Organisms: None Reported Past Surgical History: Cholecystectomy, Coronary Bypass/CABG, Heart Catheterization, Heart Catheterization With Stent Additional Past Surgical History / Comment(s): abdominal aortic aneurysm (Jun 14 2023) Date of Last Stent Placement:: 2006 Past Psychological History: No Psychological Hx Reported Smoking Status: Former smoker (40 pack years, quit smoking 2002) Past Alcohol Use History: None Reported Past Drug Use History: None Reported Medications and Allergies Home Medications Medication Instructions Recorded Confirmed Type Albuterol Sulfate [Ventolin HFA] 2 puff INHALATION RT-Q4H PRN 08/17/23 02/14/24 History Ascorbic Acid [Vitamin C] 1,000 mg PO DAILY 08/17/23 02/14/24 History Aspirin EC [Ecotrin Low Dose] 81 mg PO DAILY 08/17/23 02/14/24 History Budesonide/Formoterol Fumarate 2 puff INHALATION RT-BID 08/17/23 02/14/24 History [Symbicort 160-4.5 Mcg Inhaler] Clopidogrel [Plavix] 75 mg PO DAILY 08/17/23 02/14/24 History DULoxetine HCL [Cymbalta] 60 mg PO DAILY 08/17/23 02/14/24 History Ergocalciferol (Vitamin D2) 1,250 mcg PO Q14D 08/17/23 02/14/24 History [Drisdol (50,000 Iu)] Ferrous Sulfate [Slow Release Iron] 140 mg PO DAILY 08/17/23 02/14/24 History Gabapentin 600 mg PO DAILY 08/17/23 02/14/24 History Ipratropium Esmond 0.06%Nasal 2 spray EA NOSTRIL TID 08/17/23 02/14/24 History [Atrovent Nasal 0.06%] Krill/Om-3/Dha/Epa/Phospho/Ast 1 cap PO DAILY 08/17/23 02/14/24 History [[place]-3 Krill Oil 300 mg Sfgl] Loratadine [Claritin] 10 mg PO DAILY 08/17/23 02/14/24 History Lovastatin [Mevacor] 80 mg PO HS 08/17/23 02/14/24 History Metoprolol Tartrate [Lopressor] 50 mg PO BID 08/17/23 02/14/24 History Nitroglycerin Sl Tabs [Nitrostat] 0.4 mg SUBLINGUAL Q5M PRN 08/17/23 02/14/24 History Pantoprazole [Protonix] 40 mg PO DAILY 08/17/23 02/14/24 History Potassium Chloride ER [K-Dur 20] 20 meq PO DAILY 08/17/23 02/14/24 History Vit C/E/Zn/Coppr/Lutein/Zeaxan 1 cap PO BID 08/17/23 02/14/24 History [Preservision Areds 2 Softgel] Vitamin B Complex 1 cap PO DAILY 08/17/23 02/14/24 History gemfibroziL [Lopid] 600 mg PO BID-W/MEALS 08/17/23 02/14/24 History hydrOXYzine HCL [Atarax] 50 mg PO HS PRN 08/17/23 02/14/24 History metFORMIN HCL [Glucophage] 500 mg PO BID-W/MEALS 08/17/23 02/14/24 History Cyclosporine (Cequa) 0.09% 1 drop BOTH EYES BID 02/14/24 02/14/24 History Dropperette Losartan [Cozaar] 25 mg PO BID 02/14/24 02/14/24 History guaiFENesin [Mucinex] 600 mg PO Q12H 02/14/24 02/14/24 History hydroCHLOROthiazide [Hydrodiuril] 25 mg PO DAILY 02/14/24 02/14/24 History Allergies Allergy/AdvReac Type Severity Reaction Status Date / Time Sulfa (Sulfonamide Allergy Unknown Verified 02/14/24 08:44 Antibiotics) sulfacetamide Allergy Unknown Verified 02/14/24 08:44 [From Sulfamide] Tetracyclines Allergy Unknown Verified 02/14/24 08:44 tramadol Allergy Itching Verified 02/14/24 08:44 Physical Exam Vitals: Vital Signs Temp Pulse Resp BP Pulse Ox 02/14/24 10:43 124 H 15 113/73 91 L 02/14/24 10:07 147 H 15 118/66 02/14/24 08:50 140 H 20 100/47 99 02/14/24 08:20 176 H 24 115/79 96 02/14/24 08:08 175 H 02/14/24 06:54 95 18 102/58 93 L 02/14/24 05:29 102 H 93 L 02/14/24 05:03 97.9 F 129 H 16 93/59 91 L Intake and Output 02/13/24 02/14/24 02/14/24 22:59 06:59 14:59 Other: Weight 58.513 kg The patient appeared well nourished and normally developed. Vital signs as documented. Calm and comfortable on 2 L of oxygen by nasal cannula Head exam is unremarkable. No scleral icterus or corneal arcus noted. Neck is without jugular venous distension, thyromegaly, or carotid bruits. Car otid upstrokes are brisk bilaterally. Lungs diminished breath sounds along with scattered rhonchi and crackles over the right upper anterior and posterior chest. Cardiac exam reveals the PMI to be normally sized and situated. Irregular rhythm consistent with atrial fibrillation. First and second heart sounds normal. No murmurs, rubs or gallops. Abdominal exam reveals normal bowel sounds, no masses, no organomegaly and no aortic enlargement. Extremities are nonedematous and both femoral and pedal pulses are normal. Examination of the skin revealed no evidence of significant rashes, suspicious appearing nevi or other concerning lesions. Neurologically, the patient is awake and alert and the patient does not have any focal neurological deficit. Cranial nerves are essentially intact. Results - Laboratory Findings CBC and BMP: 02/14/24 05:29 02/14/24 12:24 PT/INR, D-dimer PT 11.9 sec (10.0-12.5) 02/14/24 05:29 INR 1.1 (<1.2) 02/14/24 05:29 Abnormal lab findings: Abnormal Labs 02/14/24 02/14/24 02/14/24 05:29 05:29 05:29 WBC 19.8 H RBC 3.60 L Neutrophils # 17.1 H Lymphocytes # 0.8 L Monocytes # 1.3 H APTT 30.7 H Sodium 128 L Potassium 3.4 L Chloride 93 L Carbon Dioxide 17 L BUN 51 H Creatinine 2.12 H Glucose 143 H Magnesium 1.3 L - Diagnostic Findings Chest x-ray: image reviewed CT scan - chest: image reviewed Assessment and Plan Plan: Acute right upper lobe lobar pneumonia, most consistent with a bacterial pneumonia. Viral 4 Plex has been negative. The patient has extensive consolidation of the right upper lobe and this is highly suggestive of an underlying bacterial pneumonia. 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 The patient also has coronary stents Hypertension Hyperlipidemia History of breast cancer, status post right lumpectomy followed by treatment with Femara Plan Titrate oxygen flow to maintain saturation above 90% Obtain sputum Gram stain and culture Obtain blood cultures Check baseline procalcitonin level Continue IV Rocephin and Zithromax IV Solu-Medrol 40 mg every 8 hours Continue amiodarone per protocol to be switched to oral amiodarone Continue anticoagulation with Eliquis and monitor hemoptysis IV fluids and the patient is currently on lactated Ringer at rate of 125 cc an hour Continue aspirin Continue Lipitor Will admit the patient to the hospital. Follow-up chest x-ray will be needed within the next 24 to 48 hours Utilize insulin sliding scale coverage should there be any significant hyperglycemia with systemic steroids Viral 4 Plex is negative Check Legionella urine antigen Will continue to follow
[2024-02-14] MEDS ORDERED: HEPARIN SODIUM,PORCINE 5,000 UNIT/ML 1 ML VIAL SQ SCH (16:00)
[2024-02-14] MEDS: methylPREDNISolone SOD SUCCI 40 MG/ML 1 ML VIAL IV SCH (16:05)
--- NOTE | 2024-02-14 17:07 | CA ---
Transthoracic Echo Report Name: Malika Smallwood Age: 83 Gender: F : 1940 Exam Date: 02/14/2024 14:23 Exam Location: [facility] Ht (in): 61 Wt (lb): 129 Ordering Physician: Daniel Ng MD Attending/Referring Phys: [id number], Hernandez Systems Administrator Vielka Marina RDCS Procedure CPT: Indications: New onset afib Cardiac Hx: Technical Quality: Fair Contrast 1: Total Dose (mL): Contrast 2: Total Dose (mL): MEASUREMENTS (Male / Female) Normal Values 2D ECHO LV Diastolic Diameter PLAX 4.9 cm 4.2 - 5.9 / 3.9 - 5.3 cm LV Systolic Diameter PLAX 3.4 cm IVS Diastolic Thickness 0.7 cm 0.6 - 1.0 / 0.6 - 0.9 cm LVPW Diastolic Thickness 0.6 cm 0.6 - 1.0 / 0.6 - 0.9 cm LV Relative Wall Thickness 0.3 LVOT Diameter 2.0 cm LV Diastolic Volume MOD BP 78.7 cm??? 67 - 155 / 56 - 104 cm??? LV Systolic Volume MOD BP 42.6 cm??? 22 - 58 / 19 - 49 cm??? LV Ejection Fraction MOD BP 45.9 % >= 55 % LV Cardiac Index MOD BP 1829.0 cm???/min???m??? LV Diastolic Volume MOD 4C 85.8 cm??? LV Systolic Volume MOD 4C 49.3 cm??? LV Ejection Fraction MOD 4C 42.6 % LV Cardiac Index MOD 4C 1850.9 cm???/min???m??? LV Diastolic Length 4C 7.3 cm LV Systolic Length 4C 6.0 cm LV Diastolic Volume MOD 2C 67.1 cm??? LV Systolic Volume MOD 2C 34.7 cm??? LV Ejection Fraction MOD 2C 48.4 % LV Cardiac Index MOD 2C 1644.9 cm???/min???m??? LV Diastolic Length 2C 6.8 cm LV Systolic Length 2C 5.6 cm LA Volume 47.8 cm??? 18 - 58 / 22 - 52 cm??? LA Volume Index 29.9 cm???/m??? 16 - 28 cm???/m??? DOPPLER AV Peak Velocity 123.9 cm/s AV Peak Gradient 6.1 mmHg AV Mean Velocity 86.5 cm/s AV Mean Gradient 3.4 mmHg AV Velocity Time Integral 27.3 cm LVOT Peak Velocity 94.1 cm/s LVOT Peak Gradient 3.5 mmHg LVOT Velocity Time Integral 19.4 cm LVOT Stroke Volume 58.8 cm??? LVOT Stroke Volume Index 37.5 ml/m??? LVOT Cardiac Index 2979.6 cm???/min???m??? AV Area Cont Eq vti 2.2 cm??? AV Area Cont Eq pk 2.3 cm??? MV Peak Velocity 111.5 cm/s MV Peak Gradient 5.0 mmHg MV Mean Velocity 63.6 cm/s MV Mean Gradient 2.0 mmHg MV Velocity Time Integral 20.8 cm MV Area PHT 5.0 cm??? MR Flow Rate PISA 42.6 cm???/s Mitral E Point Velocity 89.8 cm/s Mitral A Point Velocity 37.4 cm/s Mitral E to A Ratio 2.4 MV Deceleration Time 152.8 ms TR Peak Velocity 256.4 cm/s TR Peak Gradient 26.3 mmHg Right Atrial Pressure 15.0 mmHg Pulmonary Artery Systolic Pressu 41.3 mmHg Right Ventricular Systolic Press 41.3 mmHg PV Peak Velocity 73.2 cm/s PV Peak Gradient 2.1 mmHg FINDINGS Left Ventricle Left ventricular ejection fraction is estimated at 40-45 %. Mildly decreased left ventricular ejection fraction. Basal anterolateral, inferoseptal, and anterior wall hypokinesis.left ventricular cavity size normal. Left ventricular wall thickness normal. Right Ventricle Normal right ventricular size. Mildly reduced right ventricular global systolic function. Mild pulmonary hypertension. Right Atrium Moderate RA dilated Left Atrium Moderate LA dilated Mitral Valve Mitral valve thickened. No evidence for mitral valve prolapse. No mitral stenosis. Moderate to severe mitral regurgitation. Aortic Valve Trileaflet aortic valve. Aortic valve sclerosis. No aortic stenosis. Trace aortic regurgitation. Tricuspid Valve Structurally normal tricuspid valve. No tricuspid stenosis. Moderate to severe tricuspid regurgitation. Pulmonic Valve Structurally normal pulmonic valve. No pulmonic stenosis. Dcyk-ga-ziatnoco pulmonic regurgitation. Pericardium No pericardial effusion. Aorta Aortic annulus normal. CONCLUSIONS LVEF 40 to 45% Mid to basal inferolateral wall hypokinesia Normal RV size with mildly reduced systolic function. RVSP 41 mmHg. Mild pulm hypertension Moderate biatrial dilatation Moderate to severe MR Moderate to severe tricuspid regurgitation Patient is in A-fib during study. Dilated IVC with less than 50% respiratory collapse Previewed by: Dr Lucho Baker (Electronically Signed) Final Date: 14 February 2024 17:07
[2024-02-14] MEDS: SYMBICORT 160-4.5 MCG INHALER INHALATION SCH (20:25)
[2024-02-14] MEDS: ATORVASTATIN 20 MG TAB PO SCH (20:31)
[2024-02-15] MEDS ORDERED: DEXTROSE 50% SYRINGE 50 ML IVP PRN ×2 (07:45)
[2024-02-15] MEDS: FENOFIBRATE 160 MG TAB PO SCH (09:36)
[2024-02-15] MEDS: AMIODARONE 200 MG TAB PO SCH (09:36)
[2024-02-15] MEDS: DULoxetine HCL 60 MG CAPSULE.DR PO SCH (09:36)
[2024-02-15] MEDS: GABAPENTIN 100 MG CAP PO SCH (09:37)
[2024-02-15] MEDS: PANTOPRAZOLE 40 MG TABLET PO SCH (09:37)
[2024-02-15 09:44] LABS: African American GFR (CKD) 41 (>60 ml/min/1.73 sqM); Anion Gap 14 mmol/L; Blood Urea Nitrogen 44 mg/dL (7-17); Calcium 7.6 mg/dL (8.4-10.2); Carbon Dioxide 20 mmol/L (22-30); Chloride 99 mmol/L (98-107); Glucose 209 mg/dL (74-99); Magnesium 2.3 mg/dL (1.6-2.3); Non-African American GFR(CKD) 35 (>60 ml/min/1.73 sqM); Potassium 3.5 mmol/L (3.5-5.1); Sodium 133 mmol/L (137-145)
--- NOTE | 2024-02-15 09:47 | P.PN ---
Subjective HISTORY OF PRESENT ILLNESS: This is an 83-year-old female patient of Dr. TOI Tellez with past medical history of coronary artery disease status post bypass grafting, hypertension, hyperlipidemia, diabetes mellitus, chronic kidney disease, COPD, remote history of tobacco use and dependence, aortic aneurysm. We have been asked to evaluate the patient for new onset of atrial fibrillation. Patient states that she presented to the hospital due to spitting up blood. She has not had a cough for 1-1/2 weeks. As well has not been feeling well in general and worsening over the past 24 hours with fever, cough, and sputum production. Patient denies having any chest pain. She denies palpitations. Blood pressure 113/73, heart rate 124, pulse ox 91% on room air. Patient is seen today in the emergency center waiting for a bed on the [facility] floor. Patient is status post 2.5, IV magnesium, l of IV fluid status post 1 dose of IV Lopressor 5 mg. Patient has also been started on amiodarone by attending. Regarding abdominal aortic aneurysm, patient underwent graft procedure done in June 2023 and is on Plavix for this. Discussed with the patient and her daughter that we will be stopping the Plavix and placing her on Eliquis. -EKG: Atrial fibrillation 175 bpm -Chest x-ray: 2 right-sided pulmonary nodules and consolidative opacity within t he right upper lobe. May represent infectious process or underlying mass not excluded. -CT of the chest: COPD with advanced emphysema, confluent pneumonia posterior right upper lobe and lesser extent right middle lobe, prior granulomatous disease. Possible underlying cirrhosis. Abdominal aortic endovascular stent graft. -Laboratory studies: WBC 19.8, hemoglobin 9.6. Sodium 128, potassium 3.4, CO2 17, BUN 51, creatinine 2.12. Troponin negative x 2. Influenza A, influenza B, RSV, COVID-19 not detected. -Home cardiac medications: Aspirin 81 mg daily, Plavix 75 mg daily, ferrous sulfate daily, hydrochlorothiazide 25 mg daily, losartan 25 mg twice daily, Lovastatin 80 mg at bedtime, metoprolol tartrate 50 mg twice daily, Nitrostat as needed, potassium chloride 20 mill equivalents daily. -Echocardiogram performed in the office on 12/08/2022 revealed EF of 55%, mild to moderate aortic regurgitation, moderate MR, moderate TR, RVSP 38. -Lexiscan Cardiolite stress test performed in the office on 07/22/2020 revealed EF of 60%, mild anterior septal fixed defect. No ischemia. 02/14/2024 Patient examined this morning the bedside. Patient currently denies any chest pain or pressure. She denies any shortness of breath. Vital signs are stable. Telemetry reveals sinus mechanism. Echocardiogram completed revealing ejection fraction 40 to 45%, basal anterior lateral, inferior septal, and anterior wall hypokinesis, mild pulmonary pretension, moderate to severe tricuspid regurgitation, trace AR, moderate to severe MR PHYSICAL EXAM: VITAL SIGNS: Reviewed. GENERAL: Well-developed in no acute distress. NECK: Supple. No JVD or thyromegaly LUNGS: Respirations even and unlabored. Lungs essentially clear to auscultation bilaterally. HEART: Regular rate and rhythm. S1 and S2 heard. EXTREMITIES: Normal range of motion. No clubbing or cyanosis. Peripheral pulses intact. No lower extremity edema ASSESSMENT: New onset paroxysmal atrial fibrillation with RVR, currently maintaining sinus mechanism Mild cardiomyopathy, suspect nonischemic Pneumonia Hyponatremia Acute kidney injury Metabolic acidosis Hypomagnesemia PLAN: Continue current cardiac medications Change amiodarone to 400 mg twice a day. Taper at discharge includes 400 mg twice a day for 1 week, then 200 mg twice a day for 1 week, then 200 mg daily Continue anticoagulation with Eliquis Continue telemetry monitoring Patient is stable for discharge home today from a cardiac standpoint Nurse practitioner note has been reviewed by physician. Signing provider agrees with the documented findings, assessment, and plan of care documented by SOCIAL MEDIA CAMPAIGN MANAGER as a scribe. Objective - Vital Signs Vital signs: Vital Signs Temp 98.1 F 02/14/24 19:57 Pulse 73 02/15/24 04:14 Resp 16 02/15/24 04:14 BP 99/71 02/15/24 04:14 Pulse Ox 93 L 02/15/24 04:14 FiO2 Intake & Output 02/14/24 02/15/24 02/15/24 18:59 06:59 18:59 Intake Total 118.888 Balance 118.888 Intake: Intake, IV Titration 118.888 Amount Amiodarone 360 mg In 118.888 Dextrose 5% in Water 200 ml @ 1 MG/MIN 33.333 mls/ hr IV .Q6H ONE Rx#: [id number] - Labs CBC & Chem 7: 02/14/24 05:29 01/07/25 12:24 Labs: Abnormal Lab Results - Last 24 Hours (Table) 02/14/24 02/14/24 Range/Units 10:58 12:24 Sodium 130 L (137-145) mmol/L Carbon Dioxide 18 L (22-30) mmol/L BUN 49 H (7-17) mg/dL Creatinine 1.79 H (0.52-1.04) mg/dL Glucose 173 H (74-99) mg/dL Calcium 7.4 L (8.4-10.2) mg/dL Procalcitonin 5.15 H (0.02-0.50) ng/mL TSH 0.187 L (0.465-4.680) mIU/L
[2024-02-15] MEDS: LACTATED RINGERS 1,000 ML IV SCH (09:56)
[2024-02-15 11:03] LABS: HCT 28.7 % (37.2-46.3); HGB 9.3 g/dL (12.0-15.0); MCH 30.8 pg (27.0-32.0); MCHC 32.4 g/dL (32.0-37.0); Mean Platelet Volume 9.9 FL (9.5-12.2); NRBC Per 100 WBC 0 X 10*3/uL (0.00-0.01); Platelet Count 244 X 10*3/uL (140-440); RBC 3.02 X 10*6/uL (4.10-5.20); RDW 13.5 % (11.5-14.5); WBC 13.18 X 10*3/uL (4.50-10.00)
[2024-02-15 11:12] LABS: ALT 19 U/L (8-44); AST 41 U/L (13-35); Albumin 3.2 g/dL (3.8-4.9); Albumin/Globulin Ratio 1.23 Ratio (1.60-3.17); Alkaline Phosphatase 86 U/L (41-126); BUN/Creat Ratio 26.25 Ratio (12.00-20.00); Calcium 7.6 mg/dL (8.7-10.3); Carbon Dioxide 17.1 mmol/L (21.6-31.8); Chloride 98 mmol/L (96-109); Chol/HDL Ratio 4.01 Ratio; Globulin 2.6 g/dL (1.6-3.3); Glucose 221 mg/dL (70-110); LDL Cholesterol,Calculated 71.2 mg/dL (0.0-131.0); Magnesium 2.3 mg/dL (1.5-2.4); Potassium 3.7 mmol/L (3.5-5.5); Sodium 132 mmol/L (135-145); Total Bilirubin <0.2 mg/dL (0.3-1.2); Total Protein 5.8 g/dL (6.2-8.2)
[2024-02-15 11:32] LABS: Basophils # (A) 0.01 X 10*3/uL (0.00-0.10); Basophils % (A) 0.1 %; Eosinophils # (A) 0 X 10*3/uL (0.04-0.35); Eosinophils % (A) 0 %; Lymphocytes # (A) 0.35 X 10*3/uL (0.90-5.00); Lymphocytes % (A) 2.7 %; Monocytes # (A) 0.45 X 10*3/uL (0.20-1.00); Monocytes % (A) 3.4 %; Neutrophils # (A) 12.28 X 10*3/uL (1.80-7.70); Neutrophils % (A) 93.1 %
[2024-02-15 11:33] LABS: NT-Pro-B-Type Natriuretic Pept 8573 pg/mL (0-450)
[2024-02-15 11:43] LABS: Glucose,Whole Blood 298 mg/dL (70-110)
--- NOTE | 2024-02-15 11:53 | P.PN ---
Subjective Progress Note Date: 02/15/24 Hospital Course: 83-year-old female with history of COPD, not on oxygen, type 2 diabetes, CAD s tatus post CABG, prior GI bleed, hypertension, abdominal aortic aneurysm s/p repair presenting with shortness of breath, mild productive cough with trace hemoptysis. n the ED, temperature was 97.9, pulse initially of 129 then increased to 175, blood pressure 93/59, saturating at 91% on room air. WBC 19.8, hemoglobin 11.6, platelet 298, sodium 128, potassium 3.4, bicarb 17, anion gap 18, BUN 51, creatinine 2.12, lactate 1.4, magnesium 1.3, troponin negative x 2. Respiratory viral panel negative. Chest x-ray independently interpreted, shows right upper lobe opacity. Chest CT shows COPD with advanced emphysema, confluent pneumonia posterior right upper lobe and right middle lobe. Initial E KG independently interpreted, shows sinus tachycardia with minimal ST-T wave changes. Repeat EKG shows atrial fibrillation with RVR with significant ST depressions in inferior lateral leads and some T wave flattening in anterior leads. In the ER patient was initially started on antibiotics and was given 1 L of normal saline. Due to elevated heart rate, was given further IV fluids, metoprolol IV 5 mg push given once with slight improvement in heart rate. Blood pressure was still soft, patient started on amiodarone drip. Cardiology was also consulted. Pulmonology consulted by ER. Patient being admitted for as inpatient for community-acquired pneumonia and A-fib RVR. Patient now in sinus rhythm, switched from IV amiodarone to oral amiodarone, started on Eliquis. Echocardiogram showed LVEF 40 to 45%, mild pulmonary hypertension, moderate to severe MR, moderate to severe tricuspid regurgitation. Subjective: Patient seen and examined at bedside. Claims that she is feeling better overall. Shortness of breath has improved. Pertinent positives and negatives as discussed above, a complete review of systems was performed and all other systems are negative. Vitals Signs Reviewed. General: Nontoxic, no distress, appears at stated age Derm: Warm, dry Head: Atraumatic, normocephalic, symmetric Eyes: EOMI, no lid lag, anicteric sclera Mouth: No lip lesion, mucus membranes moist Cardiovascular: S1S2 reg, no murmur Lungs: Reduced breath sounds in right upper lobe, no accessory muscle use Abdominal: Soft, nontender to palpation, no guarding, no appreciable organomegaly Ext: No gross muscle atrophy, no edema, no contractures Neuro: CN II-XI grossly intact, no focal neuro deficits Psych: Alert, oriented, appropriate affect Data Reviewed Today: Pertinent Labs: WBC 13.18, hemoglobin 9.3, creatinine 1.4, bicarb 20, potassium 3.5, sodium 133, magnesium 2.3, blood sugars range between 209 2-98, TSH 0.187, free T41.06, procalcitonin 5.15 Imaging: Echocardiogram showed LVEF 40 to 45%, moderate-severe TR and MR, mild pulmonary hypertension. Renal ultrasound did not show any hydronephrosis. Assessment and Plan: Sepsis secondary to community-acquired pneumonia Trace hemoptysis, resolved Prerenal ORQUIDEA, resolving Hypovolemic hyponatremia, resolving High anion gap metabolic acidosis, resolving -Discontinue IV fluids, encourage oral intake -Continue ceftriaxone 2 g IV every 24 hours, azithromycin 500 mg IV daily. -Sputum cultures, blood cultures, Legionella urine antigen pending -Hemoglobin slightly down trended, possibly dilutional, continue to monitor -Pulmonology following -Holding hydrochlorothiazide and losartan New onset atrial fibrillation with RVR Cardiomyopathy systolic, EF 40 to 45%, likely nonischemic History of hypertension Hypotension, resolving -Cardiology note reviewed, continue Eliquis 2.5 twice daily, Plavix discontinued, started on amiodarone 400 twice daily -Continue metoprolol 50 twice daily -Holding home antihypertensives -Continue telemetry monitoring Euthyroid sick syndrome -Repeat TSH outpatient 4 to 6 weeks Hypomagnesemia, resolved Mild hypokalemia, resolved DVT ppx: Eliquis Code status: Full code Anticipated discharge place: Pending clinical course Anticipated discharge time: Pending clinical course Objective - Vital Signs Vital signs: Vital Signs Temp 98.1 F 02/14/24 19:57 Pulse 98 02/15/24 10:27 Resp 18 02/15/24 10:27 BP 130/62 02/15/24 10:27 Pulse Ox 95 02/15/24 10:27 FiO2 Intake & Output 02/14/24 02/15/24 02/15/24 18:59 06:59 18:59 Intake Total 118.888 Balance 118.888 Intake: Intake, IV Titration 118.888 Amount Amiodarone 360 mg In 118.888 Dextrose 5% in Water 200 ml @ 1 MG/MIN 33.333 mls/ hr IV .Q6H ONE Rx#: [id number] - Labs CBC & Chem 7: 02/15/24 06:34 02/15/24 08:44 Labs: Abnormal Lab Results - Last 24 Hours (Table) 02/14/24 02/14/24 02/15/24 Range/Units 10:58 12:24 06:34 WBC 13.18 H (4.50-10.00) X 10*3/uL RBC 3.02 L (4.10-5.20) X 10*6/uL Hgb 9.3 L (12.0-15.0) g/dL Hct 28.7 L (37.2-46.3) % Immature Gran # 0.09 H (0.00-0.04) X 10*3/uL Neutrophils # 12.28 H (1.80-7.70) X 10*3/uL Lymphocytes # 0.35 L (0.90-5.00) X 10*3/uL Eosinophils # 0 L (0.04-0.35) X 10*3/uL Sodium 130 L (137-145) mmol/L Carbon Dioxide 18 L (22-30) mmol/L Anion Gap (4.00-12.00) mmol/L BUN 49 H (7-17) mg/dL Creatinine 1.79 H (0.52-1.04) mg/dL Est GFR (CKD-EPI) (>=60) BUN/Creatinine Ratio (12.00-20.00) Ratio Glucose 173 H (74-99) mg/dL POC Glucose (mg/dL) (70-110) mg/dL Calcium 7.4 L (8.4-10.2) mg/dL Total Bilirubin (0.3-1.2) mg/dL AST (13-35) U/L NT-Pro-B Natriuret Pep (0-450) pg/mL Total Protein (6.2-8.2) g/dL Albumin (3.8-4.9) g/dL Albumin/Globulin Ratio (1.60-3.17) Ratio HDL Cholesterol (40.00-60.00) mg/dL Procalcitonin 5.15 H (0.02-0.50) ng/mL TSH 0.187 L (0.465-4.680) mIU/L 02/15/24 02/15/24 02/15/24 Range/Units 06:34 08:44 11:41 WBC (4.50-10.00) X 10*3/uL RBC (4.10-5.20) X 10*6/uL Hgb (12.0-15.0) g/dL Hct (37.2-46.3) % Immature Gran # (0.00-0.04) X 10*3/uL Neutrophils # (1.80-7.70) X 10*3/uL Lymphocytes # (0.90-5.00) X 10*3/uL Eosinophils # (0.04-0.35) X 10*3/uL Sodium 132 L 133 L (137-145) mmol/L Carbon Dioxide 17.1 L 20 L (22-30) mmol/L Anion Gap 16.90 H (4.00-12.00) mmol/L BUN 42.0 H 44 H (7-17) mg/dL Creatinine 1.6 H 1.40 H (0.52-1.04) mg/dL Est GFR (CKD-EPI) 32 L (>=60) BUN/Creatinine Ratio 26.25 H (12.00-20.00) Ratio Glucose 221 H 209 H (74-99) mg/dL POC Glucose (mg/dL) 298 H (70-110) mg/dL Calcium 7.6 L 7.6 L (8.4-10.2) mg/dL Total Bilirubin <0.2 L (0.3-1.2) mg/dL AST 41 H (13-35) U/L NT-Pro-B Natriuret Pep 8573 H (0-450) pg/mL Total Protein 5.8 L (6.2-8.2) g/dL Albumin 3.2 L (3.8-4.9) g/dL Albumin/Globulin Ratio 1.23 L (1.60-3.17) Ratio HDL Cholesterol 31.40 L (40.00-60.00) mg/dL Procalcitonin (0.02-0.50) ng/mL TSH (0.465-4.680) mIU/L
[2024-02-15] MEDS: INSULIN ASPART (NovoLOG) 100 UNIT/ML VIAL SQ SCH (12:49)
[2024-02-15 13:16] LABS: Amorphous Sediment,Urine Rare /hpf; Appearance,Urine Clear (Clear); Bacteria,Urine Rare /hpf; Bilirubin,Urine Negative (Negative); Blood,Urine Trace (Negative); Color,Urine Colorless; Glucose,Urine (UA) Negative (Negative); Ketones,Urine Negative (Negative); Leukocyte Esterase,Urine Negative (Negative); Nitrite,Urine Negative (Negative); PH, Urine 5.5 (5.0-8.0); Protein,Urine 1+ (Negative); RBC,Urine 1 /hpf (0-5); Specific Gravity,Urine 1.009 (1.001-1.035); Squamous Epithelial Cell,Urine <1 /hpf (0-4); Urobilinogen,Urine <2.0 mg/dL (<2.0); WBC,Urine <1 /hpf (0-5)
--- NOTE | 2024-02-15 14:15 | P.PN ---
Subjective Progress Note Date: 02/15/24 This is a 83-year-old female patient with known history of COPD, no history of coronary disease and previous bypass surgery along with previous history of abdominal aortic aneurysm status postsurgical repair along with history of hypertension. The patient presented to the hospital because of worsening s hortness of breath. Symptoms started approximately a week ago. The patient felt that she was having symptoms of URI and subsequently she became more short of breath, and she developed increased cough and sputum production and earlier this morning the patient had some trace hemoptysis. She was also experiencing fever and chills along with shortness of breath. Based on those symptoms, the patient ended up coming into the emergency department where chest x-ray was done and showed a large area of consolidation in the right upper lobe consistent with a lobar pneumonia. No altered mentation. No nausea. No emesis. The initial white count was at 19.8 with a hemoglobin of 11.6 and a platelet count of 298. Sodium levels at 128, potassium levels at 3.4, serum bicarb is at 17 with a BUN of 51 and a creatinine of 2.1 consistent with an acute kidney injury. LFTs were normal, troponins were negative, free T4 is at 1.06 and the viral screen/viral 4 Plex was negative. The patient was also noted to be in atrial fibrillation with rapid medical response. The patient was given a liter of bolus of normal saline. The patient was started on IV Rocephin and Zithromax. The patient was given 5 mg of metoprolol IV push and following that the patient was started on amiodarone drip for rate control. The patient is also on anticoagulation with Eliquis 2.5 mg twice a day. In terms of her COPD, the patient has moderately severe disease with an FEV1 of 57% of predicted, maintained on Symbicort on outpatient basis. 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 A CT of the chest was also done in the emergency department and it showed COPD with extensive right upper lobe pulmonary consolidation consistent with pneumonia. The patient had a calcified granuloma in the right upper lobe. There was also evidence of some chronic liver disease probably early cirrhosis. Some hepatic cysts were also seen measuring up to 1 cm in size. Noted the patient also has an abdominal aortic aneurysm and the patient has undergone endovascular stent grafting and the aneurysm was again visualized on the CT of the chest. Currently she is on oxygen at 1.5 L/min nasal cannula. Rate is under better control yet the patient continues to be in atrial fibrillation. Cardiology consultation has been requested. Noted the patient has undergone a previous Cardiolite Lexiscan stress test in the office on 07/22/2020 revealing a normal ejection fraction of 60% with mild anterior septal fixed defect without any reversible ischemia. On 02/15/2024, the patient is being seen for a follow-up. The patient remains in the emergency department as the patient is being treated for pneumonia and the patient has a right lower lobe consolidation for which she was started on a combination of Rocephin and Zithromax. She is also on bronchodilators. She is also on steroids. In terms of her atrial fibrillation, the patient was switched to oral amiodarone 4 mg p.o. twice daily. She is on anticoagulation with Eliquis 2.5 mg p.o. daily. She is also on metoprolol 50 mg p.o. twice a day. White cell count today is at 13 with a hemoglobin 9.3 and a platelet count of 244. BUN is 44 with a creatinine of 1.4 and sodium levels at 133 and a potassium level is at 3.5. Cultures are still pending for now. No other significant events. She is awake and alert and communicating. Objective - Vital Signs Vital signs: Vital Signs Temp 98.1 F 02/14/24 19:57 Pulse 73 02/15/24 04:14 Resp 16 02/15/24 04:14 BP 99/71 02/15/24 04:14 Pulse Ox 93 L 02/15/24 04:14 FiO2 Intake & Output 02/14/24 02/15/24 02/15/24 18:59 06:59 18:59 Intake Total 118.888 Balance 118.888 Intake: Intake, IV Titration 118.888 Amount Amiodarone 360 mg In 118.888 Dextrose 5% in Water 200 ml @ 1 MG/MIN 33.333 mls/ hr IV .Q6H ONE Rx#: [id number] - Exam The patient appeared well nourished and normally developed. Vital signs as documented. Calm and comfortable on 2 L of oxygen by nasal cannula Head exam is unremarkable. No scleral icterus or corneal arcus noted. Neck is without jugular venous distension, thyromegaly, or carotid bruits. Carotid upstrokes are brisk bilaterally. Lungs diminished breath sounds along with scattered rhonchi and crackles over the right upper anterior and posterior chest. Cardiac exam reveals the PMI to be normally sized and situated. Irregular rhythm consistent with atrial fibrillation. First and second heart sounds normal. No murmurs, rubs or gallops. Abdominal exam reveals normal bowel sounds, no masses, no organomegaly and no aortic enlargement. Extremities are nonedematous and both femoral and pedal pulses are normal. Examination of the skin revealed no evidence of significant rashes, suspicious appearing nevi or other concerning lesions. Neurologically, the patient is awake and alert and the patient does not have any focal neurological deficit. Cranial nerves are essentially intact. - Labs CBC & Chem 7: 02/15/24 06:34 02/15/24 08:44 Labs: Abnormal Lab Results - Last 24 Hours (Table) 02/14/24 02/14/24 Range/Units 10:58 12:24 Sodium 130 L (137-145) mmol/L Carbon Dioxide 18 L (22-30) mmol/L BUN 49 H (7-17) mg/dL Creatinine 1.79 H (0.52-1.04) mg/dL Glucose 173 H (74-99) mg/dL Calcium 7.4 L (8.4-10.2) mg/dL Procalcitonin 5.15 H (0.02-0.50) ng/mL TSH 0.187 L (0.465-4.680) mIU/L Assessment and Plan Plan: Acute right upper lobe lobar pneumonia, most consistent with a bacterial pneumonia. Viral 4 Plex has been negative. The patient has extensive consolidation of the right upper lobe and this is highly suggestive of an underlying bacterial pneumonia. Based on the underlying dwayne mucus/hemoptysis, and pneumococcal pneumonia is suspected. 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 The patient also has coronary stents Hypertension Hyperlipidemia History of breast cancer, status post right lumpectomy followed by treatment with Femara Plan Titrate oxygen flow to maintain saturation above 90% Obtain sputum Gram stain and culture, results are still pending Obtain blood cultures, still pending Check baseline procalcitonin level and the results are elevated at 5.15 Continue IV Rocephin and Zithromax IV Solu-Medrol 40 mg every 8 hours Continue oral amiodarone Continue anticoagulation with Eliquis and monitor hemoptysis IV fluids and the patient is currently on lactated Ringer at rate of 125 cc an hour Continue aspirin Continue Lipitor Viral 4 Plex is negative Legionella urine antigen, negative Follow-up chest x-ray in the morning Will continue to follow
[2024-02-15 16:11] LABS: Glucose,Whole Blood 231 mg/dL (70-110)
[2024-02-15 20:21] LABS: Glucose,Whole Blood 367 mg/dL (70-110)
[2024-02-16 06:07] LABS: Glucose,Whole Blood 208 mg/dL (70-110)
--- NOTE | 2024-02-16 07:14 | XR ---
EXAMINATION TYPE: XR chest 1V DATE OF EXAM: 02/16/2024 COMPARISON: 02/14/2024 CLINICAL INDICATION: Female, 83 years old with history of Follow-up pneumonia; TECHNIQUE: Single frontal view of the chest is obtained. FINDINGS: Heart mildly enlarged. Median sternotomy wires with post-CABG clips. Calcified granuloma redemonstrat ed right upper lobe. Rounded masslike area of consolidation right midlung has increased. Hyperinflati on. Diffuse increased interstitial densities are similar. IMPRESSION: 1. Cardiomegaly, COPD, and ongoing interstitial density, possible mild CHF. 2. Focal masslike consolidation right midlung shows interval worsening. [facility], , 02/16/2024 7:12 AM
[2024-02-16 07:28] LABS: Basophils % (A) 0 %; Eosinophils % (A) 0 %; HCT 30.1 % (34.0-46.0); HGB 10.2 gm/dL (11.4-16.0); Lymphocytes # (A) 0.3 k/uL (1.0-4.8); Lymphocytes % (A) 2 %; MCH 31.5 pg (25.0-35.0); MCHC 33.7 g/dL (31.0-37.0); MCV 93.2 fL (80.0-100.0); Monocytes # (A) 0.4 k/uL (0-1.0); Monocytes % (A) 3 %; Neutrophils # (A) 13.2 k/uL (1.3-7.7); Neutrophils % (A) 94 %; Platelet Count 310 k/uL (150-450); RBC 3.23 m/uL (3.80-5.40); WBC 14.1 k/uL (3.8-10.6)
[2024-02-16 07:42] LABS: ALT 41 U/L (4-34); AST 89 U/L (14-36); African American GFR (CKD) 55 (>60 ml/min/1.73 sqM); Albumin 3.2 g/dL (3.5-5.0); Alkaline Phosphatase 130 U/L (38-126); Anion Gap 14 mmol/L; Blood Urea Nitrogen 40 mg/dL (7-17); Calcium 8.3 mg/dL (8.4-10.2); Carbon Dioxide 20 mmol/L (22-30); Chloride 103 mmol/L (98-107); Glucose 197 mg/dL (74-99); Non-African American GFR(CKD) 48 (>60 ml/min/1.73 sqM); Potassium 3.3 mmol/L (3.5-5.1); Sodium 137 mmol/L (137-145); Total Bilirubin 0.4 mg/dL (0.2-1.3); Total Protein 5.9 g/dL (6.3-8.2)
--- NOTE | 2024-02-16 10:30 | P.PN ---
Subjective HISTORY OF PRESENT ILLNESS: This is an 83-year-old female patient of Dr. TOI Tellez with past medical history of coronary artery disease status post bypass grafting, hypertension, hyperlipidemia, diabetes mellitus, chronic kidney disease, COPD, remote history of tobacco use and dependence, aortic aneurysm. We have been asked to evaluate the patient for new onset of atrial fibrillation. Patient states that she presented to the hospital due to spitting up blood. She has not had a cough for 1-1/2 weeks. As well has not been feeling well in general and worsening over the past 24 hours with fever, cough, and sputum production. Patient denies having any chest pain. She denies palpitations. Blood pressure 113/73, heart rate 124, pulse ox 91% on room air. Patient is seen today in the emergency center waiting for a bed on the [facility] floor. Patient is status post 2.5, IV magnesium, l of IV fluid status post 1 dose of IV Lopressor 5 mg. Patient has also been started on amiodarone by attending. Regarding abdominal aortic aneurysm, patient underwent graft procedure done in June 2023 and is on Plavix for this. Discussed with the patient and her daughter that we will be stopping the Plavix and placing her on Eliquis. -EKG: Atrial fibrillation 175 bpm -Chest x-ray: 2 right-sided pulmonary nodules and consolidative opacity within t he right upper lobe. May represent infectious process or underlying mass not excluded. -CT of the chest: COPD with advanced emphysema, confluent pneumonia posterior right upper lobe and lesser extent right middle lobe, prior granulomatous disease. Possible underlying cirrhosis. Abdominal aortic endovascular stent graft. -Laboratory studies: WBC 19.8, hemoglobin 9.6. Sodium 128, potassium 3.4, CO2 17, BUN 51, creatinine 2.12. Troponin negative x 2. Influenza A, influenza B, RSV, COVID-19 not detected. -Home cardiac medications: Aspirin 81 mg daily, Plavix 75 mg daily, ferrous sulfate daily, hydrochlorothiazide 25 mg daily, losartan 25 mg twice daily, Lovastatin 80 mg at bedtime, metoprolol tartrate 50 mg twice daily, Nitrostat as needed, potassium chloride 20 mill equivalents daily. -Echocardiogram performed in the office on 12/08/2022 revealed EF of 55%, mild to moderate aortic regurgitation, moderate MR, moderate TR, RVSP 38. -Lexiscan Cardiolite stress test performed in the office on 07/22/2020 revealed EF of 60%, mild anterior septal fixed defect. No ischemia. 02/15/2024 Patient examined this morning the bedside. Patient currently denies any chest pain or pressure. She denies any shortness of breath. Vital signs are stable. Telemetry reveals sinus mechanism. Echocardiogram completed revealing ejection fraction 40 to 45%, basal anterior lateral, inferior septal, and anterior wall hypokinesis, mild pulmonary pretension, moderate to severe tricuspid regurgitation, trace AR, moderate to severe MR 02/16/2024 Patient examined this morning at the bedside. She is sitting in the side of the bed. She denies any chest pain or pressure. She reports shortness of breath w ith ambulation to the bathroom. She continues to have a cough. Patient states that she is having a hard time laying flat in bed secondary to back pain. Hemoglobin 10.2 today, up from 9.3 yesterday. Hemoglobin on admission 11.6. Remains anticoagulated with Eliquis. Telemetry reveals sinus mechanism. PHYSICAL EXAM: VITAL SIGNS: Reviewed. GENERAL: Well-developed in no acute distress. NECK: Supple. No JVD or thyromegaly LUNGS: Respirations even and unlabored. Lungs essentially clear to auscultation bilaterally. HEART: Regular rate and rhythm. S1 and S2 heard. EXTREMITIES: Normal range of motion. No clubbing or cyanosis. Peripheral pulses intact. No lower extremity edema ASSESSMENT: New onset paroxysmal atrial fibrillation with RVR, currently maintaining sinus mechanism Mild cardiomyopathy, suspect nonischemic Pneumonia Hyponatremia Acute kidney injury Metabolic acidosis Hypomagnesemia PLAN: Continue current cardiac medications Change amiodarone to 400 mg twice a day. Taper at discharge includes 400 mg twice a day for 1 week, then 200 mg twice a day for 1 week, then 200 mg daily Continue anticoagulation with Eliquis. Continue aspirin. Plavix has been discontinued. Continue telemetry monitoring Recommend outpatient ischemic evaluation Patient is stable for discharge home today from a cardiac standpoint Nurse practitioner note has been reviewed by physician. Signing provider agrees with the documented findings, assessment, and plan of care documented by [employer] as a scribe. Objective - Vital Signs Vital signs: Vital Signs Temp 98 F 02/16/24 08:35 Pulse 91 02/16/24 08:35 Resp 17 02/16/24 08:35 BP 144/74 02/16/24 08:35 Pulse Ox 96 02/16/24 08:35 FiO2 Intake & Output 02/15/24 02/16/24 02/16/24 18:59 06:59 18:59 Intake Total 180 120 Balance 180 120 Weight 58.513 kg 60.1 kg Intake: Oral 180 120 Other: Voiding Method Toilet Toilet # Voids 2 2 - Labs CBC & Chem 7: 02/16/24 06:01 02/16/24 06:01 Labs: Abnormal Lab Results - Last 24 Hours (Table) 02/15/24 02/15/24 02/15/24 Range/Units 06:34 06:34 11:41 WBC 13.18 H (4.50-10.00) X 10*3/uL RBC 3.02 L (4.10-5.20) X 10*6/uL Hgb 9.3 L (12.0-15.0) g/dL Hct 28.7 L (37.2-46.3) % Immature Gran # 0.09 H (0.00-0.04) X 10*3/uL Neutrophils # 12.28 H (1.80-7.70) X 10*3/uL Lymphocytes # 0.35 L (0.90-5.00) X 10*3/uL Eosinophils # 0 L (0.04-0.35) X 10*3/uL Sodium 132 L (135-145) mmol/L Potassium (3.5-5.1) mmol/L Carbon Dioxide 17.1 L (21.6-31.8) mmol/L Anion Gap 16.90 H (4.00-12.00) mmol/L BUN 42.0 H (9.0-27.0) mg/dL Creatinine 1.6 H (0.6-1.5) mg/dL Est GFR (CKD-EPI) 32 L (>=60) BUN/Creatinine Ratio 26.25 H (12.00-20.00) Ratio Glucose 221 H (70-110) mg/dL POC Glucose (mg/dL) 298 H (70-110) mg/dL Calcium 7.6 L (8.7-10.3) mg/dL Total Bilirubin <0.2 L (0.3-1.2) mg/dL AST 41 H (13-35) U/L ALT (4-34) U/L Alkaline Phosphatase (38-126) U/L NT-Pro-B Natriuret Pep 8573 H (0-450) pg/mL Total Protein 5.8 L (6.2-8.2) g/dL Albumin 3.2 L (3.8-4.9) g/dL Albumin/Globulin Ratio 1.23 L (1.60-3.17) Ratio HDL Cholesterol 31.40 L (40.00-60.00) mg/dL Urine Protein (Negative) Urine Blood (Negative) Amorphous Sediment (None) /hpf Urine Bacteria (None) /hpf 02/15/24 02/15/24 02/15/24 Range/Units 12:43 16:10 20:20 WBC (4.50-10.00) X 10*3/uL RBC (4.10-5.20) X 10*6/uL Hgb (12.0-15.0) g/dL Hct (37.2-46.3) % Immature Gran # (0.00-0.04) X 10*3/uL Neutrophils # (1.80-7.70) X 10*3/uL Lymphocytes # (0.90-5.00) X 10*3/uL Eosinophils # (0.04-0.35) X 10*3/uL Sodium (135-145) mmol/L Potassium (3.5-5.1) mmol/L Carbon Dioxide (21.6-31.8) mmol/L Anion Gap (4.00-12.00) mmol/L BUN (9.0-27.0) mg/dL Creatinine (0.6-1.5) mg/dL Est GFR (CKD-EPI) (>=60) BUN/Creatinine Ratio (12.00-20.00) Ratio Glucose (70-110) mg/dL POC Glucose (mg/dL) 231 H 367 H (70-110) mg/dL Calcium (8.7-10.3) mg/dL Total Bilirubin (0.3-1.2) mg/dL AST (13-35) U/L ALT (4-34) U/L Alkaline Phosphatase (38-126) U/L NT-Pro-B Natriuret Pep (0-450) pg/mL Total Protein (6.2-8.2) g/dL Albumin (3.8-4.9) g/dL Albumin/Globulin Ratio (1.60-3.17) Ratio HDL Cholesterol (40.00-60.00) mg/dL Urine Protein 1+ H (Negative) Urine Blood Trace H (Negative) Amorphous Sediment Rare H (None) /hpf Urine Bacteria Rare H (None) /hpf 02/16/24 02/16/24 02/16/24 Range/Units 06:01 06:01 06:06 WBC 14.1 H (4.50-10.00) X 10*3/uL RBC 3.23 L (4.10-5.20) X 10*6/uL Hgb 10.2 L (12.0-15.0) g/dL Hct 30.1 L (37.2-46.3) % Immature Gran # (0.00-0.04) X 10*3/uL Neutrophils # 13.2 H (1.80-7.70) X 10*3/uL Lymphocytes # 0.3 L (0.90-5.00) X 10*3/uL Eosinophils # (0.04-0.35) X 10*3/uL Sodium (135-145) mmol/L Potassium 3.3 L (3.5-5.1) mmol/L Carbon Dioxide 20 L (21.6-31.8) mmol/L Anion Gap (4.00-12.00) mmol/L BUN 40 H (9.0-27.0) mg/dL Creatinine 1.09 H (0.6-1.5) mg/dL Est GFR (CKD-EPI) (>=60) BUN/Creatinine Ratio (12.00-20.00) Ratio Glucose 197 H (70-110) mg/dL POC Glucose (mg/dL) 208 H (70-110) mg/dL Calcium 8.3 L (8.7-10.3) mg/dL Total Bilirubin (0.3-1.2) mg/dL AST 89 H (13-35) U/L ALT 41 H (4-34) U/L Alkaline Phosphatase 130 H (38-126) U/L NT-Pro-B Natriuret Pep (0-450) pg/mL Total Protein 5.9 L (6.2-8.2) g/dL Albumin 3.2 L (3.8-4.9) g/dL Albumin/Globulin Ratio (1.60-3.17) Ratio HDL Cholesterol (40.00-60.00) mg/dL Urine Protein (Negative) Urine Blood (Negative) Amorphous Sediment (None) /hpf Urine Bacteria (None) /hpf Microbiology - Last 24 Hours (Table) 02/14/24 12:24 Blood Culture - Preliminary Blood
[2024-02-16 12:10] LABS: Glucose,Whole Blood 251 mg/dL (70-110)
--- NOTE | 2024-02-16 12:27 | P.PN ---
Subjective Progress Note Date: 02/16/24 Hospital Course: 83-year-old female with history of COPD, not on oxygen, type 2 diabetes, CAD s tatus post CABG, prior GI bleed, hypertension, abdominal aortic aneurysm s/p repair presenting with shortness of breath, mild productive cough with trace hemoptysis. n the ED, temperature was 97.9, pulse initially of 129 then increased to 175, blood pressure 93/59, saturating at 91% on room air. WBC 19.8, hemoglobin 11.6, platelet 298, sodium 128, potassium 3.4, bicarb 17, anion gap 18, BUN 51, creatinine 2.12, lactate 1.4, magnesium 1.3, troponin negative x 2. Respiratory viral panel negative. Chest x-ray independently interpreted, shows right upper lobe opacity. Chest CT shows COPD with advanced emphysema, confluent pneumonia posterior right upper lobe and right middle lobe. Initial E KG independently interpreted, shows sinus tachycardia with minimal ST-T wave changes. Repeat EKG shows atrial fibrillation with RVR with significant ST depressions in inferior lateral leads and some T wave flattening in anterior leads. In the ER patient was initially started on antibiotics and was given 1 L of normal saline. Due to elevated heart rate, was given further IV fluids, metoprolol IV 5 mg push given once with slight improvement in heart rate. Blood pressure was still soft, patient started on amiodarone drip. Cardiology was also consulted. Pulmonology consulted by ER. Patient being admitted for as inpatient for community-acquired pneumonia and A-fib RVR. Patient now in sinus rhythm, switched from IV amiodarone to oral amiodarone, started on Eliquis. Echocardiogram showed LVEF 40 to 45%, mild pulmonary hypertension, moderate to severe MR, moderate to severe tricuspid regurgitation. Subjective: Patient seen and examined at bedside. Claims that she is feeling better overall. Shortness of breath has improved. Pertinent positives and negatives as discussed above, a complete review of systems was performed and all other systems are negative. Vitals Signs Reviewed. General: Nontoxic, no distress, appears at stated age Derm: Warm, dry Head: Atraumatic, normocephalic, symmetric Eyes: EOMI, no lid lag, anicteric sclera Mouth: No lip lesion, mucus membranes moist Cardiovascular: S1S2 reg, no murmur Lungs: Reduced breath sounds in right upper lobe, no accessory muscle use Abdominal: Soft, nontender to palpation, no guarding, no appreciable organomegaly Ext: No gross muscle atrophy, no edema, no contractures Neuro: CN II-XI grossly intact, no focal neuro deficits Psych: Alert, oriented, appropriate affect Data Reviewed Today: Pertinent Labs: WBC 14.1, hemoglobin 10.2, potassium 3.3, creatinine 1.09, blood sugars range between 1 97-3 67, total bili 0.4, AST 89, ALT 41, ALP 1 3 Imaging: Chest x-ray independently interpreted, shows right upper lobe opacity persistent Assessment and Plan: Sepsis secondary to community-acquired pneumonia Trace hemoptysis, resolved Prerenal ORQUIDEA, resolving Hypovolemic hyponatremia, resolving High anion gap metabolic acidosis, resolving -Discussed management with pulmonology, repeat procalcitonin tomorrow, possible discharge tomorrow -Continue ceftriaxone 2 g IV every 24 hours, azithromycin 500 mg IV daily., On IV Solu-Medrol 40 every 8 hours -SIRS negative growth to date -Hemoglobin stable, continue to monitor -Holding hydrochlorothiazide and losartan New onset atrial fibrillation with RVR now in sinus Cardiomyopathy systolic, EF 40 to 45%, likely nonischemic History of hypertension Hypotension, resolving -Cardiology note reviewed, continue Eliquis 2.5 twice daily, Plavix discontinued, started on amiodarone 400 twice daily, taper at discharge 400 mg twice a day for 1 week then 200 twice a day for 1 week and then 200 daily, outpatient follow-up for ischemic evaluation -Continue metoprolol 50 twice daily -Holding home antihypertensives -Continue telemetry monitoring Euthyroid sick syndrome -Repeat TSH outpatient 4 to 6 weeks Hypomagnesemia, resolved Hyperglycemia, steroid-induced -On sliding scale insulin ACH S, monitor for hypoglycemia -A1c was 4.9 few months ago Mild hypokalemia -Oral potassium 40 mill equivalent once DVT ppx: Eliquis Code status: Full code Anticipated discharge place: Pending clinical course Anticipated discharge time: Pending clinical course Objective - Vital Signs Vital signs: Vital Signs Temp 98 F 02/16/24 08:35 Pulse 91 02/16/24 08:35 Resp 17 02/16/24 08:35 BP 144/74 02/16/24 08:35 Pulse Ox 96 02/16/24 08:35 FiO2 Intake & Output 02/15/24 02/16/24 02/16/24 18:59 06:59 18:59 Intake Total 180 120 Balance 180 120 Weight 58.513 kg 60.1 kg Intake: Oral 180 120 Other: Voiding Method Toilet Toilet # Voids 2 2 - Labs CBC & Chem 7: 02/16/24 06:01 02/16/24 06:01 Labs: Abnormal Lab Results - Last 24 Hours (Table) 02/15/24 02/15/24 02/15/24 Range/Units 12:43 16:10 20:20 WBC (3.8-10.6) k/uL RBC (3.80-5.40) m/uL Hgb (11.4-16.0) gm/dL Hct (34.0-46.0) % Neutrophils # (1.3-7.7) k/uL Lymphocytes # (1.0-4.8) k/uL Potassium (3.5-5.1) mmol/L Carbon Dioxide (22-30) mmol/L BUN (7-17) mg/dL Creatinine (0.52-1.04) mg/dL Glucose (74-99) mg/dL POC Glucose (mg/dL) 231 H 367 H (70-110) mg/dL Calcium (8.4-10.2) mg/dL AST (14-36) U/L ALT (4-34) U/L Alkaline Phosphatase (38-126) U/L Total Protein (6.3-8.2) g/dL Albumin (3.5-5.0) g/dL Urine Protein 1+ H (Negative) Urine Blood Trace H (Negative) Amorphous Sediment Rare H (None) /hpf Urine Bacteria Rare H (None) /hpf 02/16/24 02/16/24 02/16/24 Range/Units 06:01 06:01 06:06 WBC 14.1 H (3.8-10.6) k/uL RBC 3.23 L (3.80-5.40) m/uL Hgb 10.2 L (11.4-16.0) gm/dL Hct 30.1 L (34.0-46.0) % Neutrophils # 13.2 H (1.3-7.7) k/uL Lymphocytes # 0.3 L (1.0-4.8) k/uL Potassium 3.3 L (3.5-5.1) mmol/L Carbon Dioxide 20 L (22-30) mmol/L BUN 40 H (7-17) mg/dL Creatinine 1.09 H (0.52-1.04) mg/dL Glucose 197 H (74-99) mg/dL POC Glucose (mg/dL) 208 H (70-110) mg/dL Calcium 8.3 L (8.4-10.2) mg/dL AST 89 H (14-36) U/L ALT 41 H (4-34) U/L Alkaline Phosphatase 130 H (38-126) U/L Total Protein 5.9 L (6.3-8.2) g/dL Albumin 3.2 L (3.5-5.0) g/dL Urine Protein (Negative) Urine Blood (Negative) Amorphous Sediment (None) /hpf Urine Bacteria (None) /hpf 02/16/24 Range/Units 12:04 WBC (3.8-10.6) k/uL RBC (3.80-5.40) m/uL Hgb (11.4-16.0) gm/dL Hct (34.0-46.0) % Neutrophils # (1.3-7.7) k/uL Lymphocytes # (1.0-4.8) k/uL Potassium (3.5-5.1) mmol/L Carbon Dioxide (22-30) mmol/L BUN (7-17) mg/dL Creatinine (0.52-1.04) mg/dL Glucose (74-99) mg/dL POC Glucose (mg/dL) 251 H (70-110) mg/dL Calcium (8.4-10.2) mg/dL AST (14-36) U/L ALT (4-34) U/L Alkaline Phosphatase (38-126) U/L Total Protein (6.3-8.2) g/dL Albumin (3.5-5.0) g/dL Urine Protein (Negative) Urine Blood (Negative) Amorphous Sediment (None) /hpf Urine Bacteria (None) /hpf Microbiology - Last 24 Hours (Table) 02/14/24 12:24 Blood Culture - Preliminary Blood
[2024-02-16] MEDS: ZINC OXIDE PASTE (Z-GUARD) 1 APPLIC TOPICAL PRN (14:11)
[2024-02-16] MEDS: POTASSIUM CHLORIDE ER 20 MEQ TAB.ER PO STA (14:11)
[2024-02-16] MEDS: ACETAMINOPHEN TAB 325 MG TAB PO PRN (14:27)
[2024-02-16] MEDS: INSULIN DETEMIR (LEVEMIR) 100 UNIT/ML SYR SQ STA (15:41)
[2024-02-16 16:52] LABS: Glucose,Whole Blood 245 mg/dL (70-110)
--- NOTE | 2024-02-16 16:59 | P.PN ---
Subjective Progress Note Date: 02/16/24 This is a 83-year-old female patient with known history of COPD, no history of coronary disease and previous bypass surgery along with previous history of abdominal aortic aneurysm status postsurgical repair along with history of hypertension. The patient presented to the hospital because of worsening s hortness of breath. Symptoms started approximately a week ago. The patient felt that she was having symptoms of URI and subsequently she became more short of breath, and she developed increased cough and sputum production and earlier this morning the patient had some trace hemoptysis. She was also experiencing fever and chills along with shortness of breath. Based on those symptoms, the patient ended up coming into the emergency department where chest x-ray was done and showed a large area of consolidation in the right upper lobe consistent with a lobar pneumonia. No altered mentation. No nausea. No emesis. The initial white count was at 19.8 with a hemoglobin of 11.6 and a platelet count of 298. Sodium levels at 128, potassium levels at 3.4, serum bicarb is at 17 with a BUN of 51 and a creatinine of 2.1 consistent with an acute kidney injury. LFTs were normal, troponins were negative, free T4 is at 1.06 and the viral screen/viral 4 Plex was negative. The patient was also noted to be in atrial fibrillation with rapid medical response. The patient was given a liter of bolus of normal saline. The patient was started on IV Rocephin and Zithromax. The patient was given 5 mg of metoprolol IV push and following that the patient was started on amiodarone drip for rate control. The patient is also on anticoagulation with Eliquis 2.5 mg twice a day. In terms of her COPD, the patient has moderately severe disease with an FEV1 of 57% of predicted, maintained on Symbicort on outpatient basis. 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 A CT of the chest was also done in the emergency department and it showed COPD with extensive right upper lobe pulmonary consolidation consistent with pneumonia. The patient had a calcified granuloma in the right upper lobe. There was also evidence of some chronic liver disease probably early cirrhosis. Some hepatic cysts were also seen measuring up to 1 cm in size. Noted the patient also has an abdominal aortic aneurysm and the patient has undergone endovascular stent grafting and the aneurysm was again visualized on the CT of the chest. Currently she is on oxygen at 1.5 L/min nasal cannula. Rate is under better control yet the patient continues to be in atrial fibrillation. Cardiology consultation has been requested. Noted the patient has undergone a previous Cardiolite Lexiscan stress test in the office on 07/22/2020 revealing a normal ejection fraction of 60% with mild anterior septal fixed defect without any reversible ischemia. On 02/15/2024, the patient is being seen for a follow-up. The patient remains in the emergency department as the patient is being treated for pneumonia and the patient has a right lower lobe consolidation for which she was started on a combination of Rocephin and Zithromax. She is also on bronchodilators. She is also on steroids. In terms of her atrial fibrillation, the patient was switched to oral amiodarone 4 mg p.o. twice daily. She is on anticoagulation with Eliquis 2.5 mg p.o. daily. She is also on metoprolol 50 mg p.o. twice a day. White cell count today is at 13 with a hemoglobin 9.3 and a platelet count of 244. BUN is 44 with a creatinine of 1.4 and sodium levels at 133 and a potassium level is at 3.5. Cultures are still pending for now. No other significant events. She is awake and alert and communicating. On 02/16/2024, condition is stable and the patient seems to be feeling better and she seems to be less short of breath. The white cell count is dropped down to 14. Renal function also improved and the creatinine is down to 1.09. Rest of the electrolytes show a sodium level of 137, potassium of 3.3, chloride of 103 and a bicarb level is at 20. The patient remains on Rocephin. Cardiac rhythm is back to sinus. The patient is currently on anticoagulation with Eliquis 2.5 mg p.o. twice daily and the patient is also on amiodarone 4 mg p.o. twice a day. She is receiving DuoNeb nebulized treatments [id number], IV Solu-Medrol, IV Rocephin, Symbicort as maintenance and the patient is also on Levemir insulin 5 units daily for blood sugar control. Repeat chest x-ray was done today and it shows no significant change in the right upper lobe consolidation and the findings are essentially stable. Clinically however the patient is feeling better. She is currently on room air oxygen with a pulse ox of 94%. No other s ignificant events overnight. Objective - Vital Signs Vital signs: Vital Signs Temp 98 F 02/16/24 08:35 Pulse 91 02/16/24 08:35 Resp 17 02/16/24 08:35 BP 144/74 02/16/24 08:35 Pulse Ox 96 02/16/24 08:35 FiO2 Intake & Output 02/15/24 02/16/24 02/16/24 18:59 06:59 18:59 Intake Total 180 120 Balance 180 120 Weight 58.513 kg 60.1 kg Intake: Oral 180 120 Other: Voiding Method Toilet Toilet # Voids 2 2 - Exam The patient appeared well nourished and normally developed. Vital signs as documented. Calm and comfortable on room air oxygen Head exam is unremarkable. No scleral icterus or corneal arcus noted. Neck is without jugular venous distension, thyromegaly, or carotid bruits. Carotid upstrokes are brisk bilaterally. Lungs diminished breath sounds along with scattered rhonchi and crackles over the right upper anterior and posterior chest. Cardiac exam reveals the PMI to be normally sized and situated. Irregular rhy thm consistent with atrial fibrillation. First and second heart sounds normal. No murmurs, rubs or gallops. Abdominal exam reveals normal bowel sounds, no masses, no organomegaly and no aortic enlargement. Extremities are nonedematous and both femoral and pedal pulses are normal. Examination of the skin revealed no evidence of significant rashes, suspicious appearing nevi or other concerning lesions. Neurologically, the patient is awake and alert and the patient does not have any focal neurological deficit. Cranial nerves are essentially intact. - Labs CBC & Chem 7: 02/16/24 06:01 02/16/24 06:01 Labs: Abnormal Lab Results - Last 24 Hours (Table) 02/15/24 02/15/24 02/15/24 Range/Units 06:34 06:34 11:41 WBC 13.18 H (4.50-10.00) X 10*3/uL RBC 3.02 L (4.10-5.20) X 10*6/uL Hgb 9.3 L (12.0-15.0) g/dL Hct 28.7 L (37.2-46.3) % Immature Gran # 0.09 H (0.00-0.04) X 10*3/uL Neutrophils # 12.28 H (1.80-7.70) X 10*3/uL Lymphocytes # 0.35 L (0.90-5.00) X 10*3/uL Eosinophils # 0 L (0.04-0.35) X 10*3/uL Sodium 132 L (135-145) mmol/L Potassium (3.5-5.1) mmol/L Carbon Dioxide 17.1 L (21.6-31.8) mmol/L Anion Gap 16.90 H (4.00-12.00) mmol/L BUN 42.0 H (9.0-27.0) mg/dL Creatinine 1.6 H (0.6-1.5) mg/dL Est GFR (CKD-EPI) 32 L (>=60) BUN/Creatinine Ratio 26.25 H (12.00-20.00) Ratio Glucose 221 H (70-110) mg/dL POC Glucose (mg/dL) 298 H (70-110) mg/dL Calcium 7.6 L (8.7-10.3) mg/dL Total Bilirubin <0.2 L (0.3-1.2) mg/dL AST 41 H (13-35) U/L ALT (4-34) U/L Alkaline Phosphatase (38-126) U/L NT-Pro-B Natriuret Pep 8573 H (0-450) pg/mL Total Protein 5.8 L (6.2-8.2) g/dL Albumin 3.2 L (3.8-4.9) g/dL Albumin/Globulin Ratio 1.23 L (1.60-3.17) Ratio HDL Cholesterol 31.40 L (40.00-60.00) mg/dL Urine Protein (Negative) Urine Blood (Negative) Amorphous Sediment (None) /hpf Urine Bacteria (None) /hpf 02/15/24 02/15/24 02/15/24 Range/Units 12:43 16:10 20:20 WBC (4.50-10.00) X 10*3/uL RBC (4.10-5.20) X 10*6/uL Hgb (12.0-15.0) g/dL Hct (37.2-46.3) % Immature Gran # (0.00-0.04) X 10*3/uL Neutrophils # (1.80-7.70) X 10*3/uL Lymphocytes # (0.90-5.00) X 10*3/uL Eosinophils # (0.04-0.35) X 10*3/uL Sodium (135-145) mmol/L Potassium (3.5-5.1) mmol/L Carbon Dioxide (21.6-31.8) mmol/L Anion Gap (4.00-12.00) mmol/L BUN (9.0-27.0) mg/dL Creatinine (0.6-1.5) mg/dL Est GFR (CKD-EPI) (>=60) BUN/Creatinine Ratio (12.00-20.00) Ratio Glucose (70-110) mg/dL POC Glucose (mg/dL) 231 H 367 H (70-110) mg/dL Calcium (8.7-10.3) mg/dL Total Bilirubin (0.3-1.2) mg/dL AST (13-35) U/L ALT (4-34) U/L Alkaline Phosphatase (38-126) U/L NT-Pro-B Natriuret Pep (0-450) pg/mL Total Protein (6.2-8.2) g/dL Albumin (3.8-4.9) g/dL Albumin/Globulin Ratio (1.60-3.17) Ratio HDL Cholesterol (40.00-60.00) mg/dL Urine Protein 1+ H (Negative) Urine Blood Trace H (Negative) Amorphous Sediment Rare H (None) /hpf Urine Bacteria Rare H (None) /hpf 02/16/24 02/16/24 02/16/24 Range/Units 06:01 06:01 06:06 WBC 14.1 H (4.50-10.00) X 10*3/uL RBC 3.23 L (4.10-5.20) X 10*6/uL Hgb 10.2 L (12.0-15.0) g/dL Hct 30.1 L (37.2-46.3) % Immature Gran # (0.00-0.04) X 10*3/uL Neutrophils # 13.2 H (1.80-7.70) X 10*3/uL Lymphocytes # 0.3 L (0.90-5.00) X 10*3/uL Eosinophils # (0.04-0.35) X 10*3/uL Sodium (135-145) mmol/L Potassium 3.3 L (3.5-5.1) mmol/L Carbon Dioxide 20 L (21.6-31.8) mmol/L Anion Gap (4.00-12.00) mmol/L BUN 40 H (9.0-27.0) mg/dL Creatinine 1.09 H (0.6-1.5) mg/dL Est GFR (CKD-EPI) (>=60) BUN/Creatinine Ratio (12.00-20.00) Ratio Glucose 197 H (70-110) mg/dL POC Glucose (mg/dL) 208 H (70-110) mg/dL Calcium 8.3 L (8.7-10.3) mg/dL Total Bilirubin (0.3-1.2) mg/dL AST 89 H (13-35) U/L ALT 41 H (4-34) U/L Alkaline Phosphatase 130 H (38-126) U/L NT-Pro-B Natriuret Pep (0-450) pg/mL Total Protein 5.9 L (6.2-8.2) g/dL Albumin 3.2 L (3.8-4.9) g/dL Albumin/Globulin Ratio (1.60-3.17) Ratio HDL Cholesterol (40.00-60.00) mg/dL Urine Protein (Negative) Urine Blood (Negative) Amorphous Sediment (None) /hpf Urine Bacteria (None) /hpf Microbiology - Last 24 Hours (Table) 02/14/24 12:24 Blood Culture - Preliminary Blood Assessment and Plan Plan: Acute right upper lobe lobar pneumonia, most consistent with a bacterial pneumonia. Viral 4 Plex has been negative. The patient has extensive consolidation of the right upper lobe and this is highly suggestive of an underlying bacterial pneumonia. Based on the underlying dwayne mucus/hemoptysis, and pneumococcal pneumonia is suspected. The patient is currently on a combination of Rocephin and Zithromax. Clinically improving and the patient is currently on room air oxygen. Chest x-ray shows a stable right upper lobe consolidation on follow-up chest x-ray that was done on 02/16/2024. Acute hypoxic respiratory failure currently on room air oxygen Acute COPD exacerbation secondary to above, improving Shortness of breath secondary to above Acute leukocytosis secondary to above, improving Acute kidney injury, improving Atrial fibrillation of new onset, currently on amiodarone p.o. and anticoagulation with Eliquis and the patient is converted to normal sinus rhythm. 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 The patient also has coronary stents Hypertension Hyperlipidemia History of breast cancer, status post right lumpectomy followed by treatment with Femara Plan Titrate oxygen flow to maintain saturation above 90%, currently on room air oxygen Obtain sputum Gram stain and culture, results are still pending Obtain blood cultures, still pending Check baseline procalcitonin level and the results are elevated at 5.15, repeat procalcitonin level within the next 24 hours Continue IV Rocephin IV Solu-Medrol 40 mg every 8 hours Continue oral amiodarone Continue anticoagulation with Eliquis and monitor hemoptysis IV fluids KVO Continue aspirin Continue Lipitor Viral 4 Plex is negative Legionella urine antigen, negative Follow-up chest x-ray in the morning Will continue to follow
[2024-02-16 19:53] LABS: Glucose,Whole Blood 260 mg/dL (70-110)
[2024-02-16 20:42] VITALS: RESP 18
[2024-02-16] MEDS: LOPERAMIDE 2 MG CAP PO PRN (23:23)
[2024-02-17 05:44] LABS: Glucose,Whole Blood 128 mg/dL (70-110)
[2024-02-17] MEDS: INSULIN DETEMIR (LEVEMIR) 100 UNIT/ML SYR SQ SCH (06:21)
[2024-02-17 07:15] LABS: African American GFR (CKD) 45 (>60 ml/min/1.73 sqM); Anion Gap 11 mmol/L; Blood Urea Nitrogen 41 mg/dL (7-17); Calcium 9.5 mg/dL (8.4-10.2); Carbon Dioxide 26 mmol/L (22-30); Chloride 102 mmol/L (98-107); Glucose 133 mg/dL (74-99); Magnesium 2.2 mg/dL (1.6-2.3); Non-African American GFR(CKD) 39 (>60 ml/min/1.73 sqM); Sodium 139 mmol/L (137-145)
[2024-02-17 07:23] LABS: Basophils % (A) 0 %; Eosinophils % (A) 0 %; HCT 30.1 % (34.0-46.0); HGB 10.1 gm/dL (11.4-16.0); Lymphocytes # (A) 0.6 k/uL (1.0-4.8); Lymphocytes % (A) 5 %; MCH 31.4 pg (25.0-35.0); MCHC 33.5 g/dL (31.0-37.0); MCV 93.8 fL (80.0-100.0); Mean Platelet Volume 7.4; Monocytes # (A) 0.5 k/uL (0-1.0); Monocytes % (A) 4 %; Neutrophils # (A) 11.6 k/uL (1.3-7.7); Neutrophils % (A) 90 %; Platelet Count 338 k/uL (150-450); RBC 3.21 m/uL (3.80-5.40); RDW 14.2 % (11.5-15.5); WBC 12.8 k/uL (3.8-10.6)
[2024-02-17 08:06] VITALS: TEMP 97.7
--- NOTE | 2024-02-17 08:35 | XR ---
EXAMINATION TYPE: XR chest 1V DATE OF EXAM: 02/17/2024 COMPARISON: 02/16/2024 CLINICAL INDICATION: Female, 83 years old with history of Pneumonia follow-up; TECHNIQUE: Single frontal view of the chest is obtained. FINDINGS: Median sternotomy wires are post-CABG clips. Hyperinflation. Diffuse interstitial density persists bu t with some improvement. Masslike opacity right midlung is becoming smaller. Heart mildly enlarged. S uspect a couple calcified granulomas on the right. Endovascular aortic stent graft partially visualiz ed. IMPRESSION: 1. COPD with persistent but improving interstitial changes bilaterally. 2. Masslike area of consolidation right midlung is becoming smaller. [facility], , 02/17/2024 8:32 AM
[2024-02-17 11:13] VITALS: BP 158/78; PULSE 61
--- NOTE | 2024-02-17 11:27 | P.PN ---
Subjective Progress Note Date: 02/17/24 HISTORY OF PRESENT ILLNESS: This is an 83-year-old female patient of Dr. TOI Tellez with past medical history of coronary artery disease status post bypass grafting, hypertension, hyperlipidemia, diabetes mellitus, chronic kidney disease, COPD, remote history of tobacco use and dependence, aortic aneurysm. We have been asked to evaluate the patient for new onset of atrial fibrillation. Patient states that she presented to the hospital due to spitting up blood. She has not had a cough for 1-1/2 weeks. As well has not been feeling well in general and worsening over the past 24 hours with fever, cough, and sputum production. Patient denies having any chest pain. She denies palpitations. Blood pressure 113/73, heart rate 124, pulse ox 91% on room air. Patient is seen today in the emergency ce nter waiting for a bed on the [facility] floor. Patient is status post 2.5, IV magnesium, l of IV fluid status post 1 dose of IV Lopressor 5 mg. Patient has also been started on amiodarone by attending. Regarding abdominal aortic aneurysm, patient underwent graft procedure done in June 2023 and is on Plavix for this. Discussed with the patient and her daughter that we will be stopping the Plavix and placing her on Eliquis. -EKG: Atrial fibrillation 175 bpm -Chest x-ray: 2 right-sided pulmonary nodules and consolidative opacity within the right upper lobe. May represent infectious process or underlying mass not excluded. -CT of the chest: COPD with advanced emphysema, confluent pneumonia posterior right upper lobe and lesser extent right middle lobe, prior granulomatous disease. Possible underlying cirrhosis. Abdominal aortic endovascular stent graft. -Laboratory studies: WBC 19.8, hemoglobin 9.6. Sodium 128, potassium 3.4, CO2 17, BUN 51, creatinine 2.12. Troponin negative x 2. Influenza A, influenza B, RSV, COVID-19 not detected. -Home cardiac medications: Aspirin 81 mg daily, Plavix 75 mg daily, ferrous sulfate daily, hydrochlorothiazide 25 mg daily, losartan 25 mg twice daily, Lovastatin 80 mg at bedtime, metoprolol tartrate 50 mg twice daily, Nitrostat as needed, potassium chloride 20 mill equivalents daily. -Echocardiogram performed in the office on 12/08/2022 revealed EF of 55%, mild to moderate aortic regurgitation, moderate MR, moderate TR, RVSP 38. -Lexiscan Cardiolite stress test performed in the office on 07/22/2020 revealed EF of 60%, mild anterior septal fixed defect. No ischemia. 02/15/2024 Patient examined this morning the bedside. Patient currently denies any chest pain or pressure. She denies any shortness of breath. Vital signs are stable. Telemetry reveals sinus mechanism. Echocardiogram completed revealing ejection fraction 40 to 45%, basal anterior lateral, inferior septal, and anterior wall hypokinesis, mild pulmonary pretension, moderate to severe tricuspid regurgitation, trace AR, moderate to severe MR 02/16/2024 Patient examined this morning at the bedside. She is sitting in the side of the bed. She denies any chest pain or pressure. She reports shortness of breath with ambulation to the bathroom. She continues to have a cough. Patient states that she is having a hard time laying flat in bed secondary to back pain. Hem oglobin 10.2 today, up from 9.3 yesterday. Hemoglobin on admission 11.6. Remains anticoagulated with Eliquis. Telemetry reveals sinus mechanism. 02/17/2024 Patient reports that she is feeling better. She denies any chest pain or shortness of breath. She has been up walking. Chest x-ray this morning does show some improvement. PHYSICAL EXAM: VITAL SIGNS: Reviewed. GENERAL: Well-developed in no acute distress. NECK: Supple. No JVD LUNGS: Respirations even and unlabored. Lungs essentially clear to auscultation bilaterally. HEART: Regular rate and rhythm. S1 and S2 heard. EXTREMITIES: Normal range of motion. No clubbing or cyanosis. Peripheral pulses intact. No lower extremity edema ASSESSMENT: New onset paroxysmal atrial fibrillation with RVR, currently maintaining sinus mechanism Mild cardiomyopathy, suspect nonischemic Pneumonia Hyponatremia Acute kidney injury Metabolic acidosis Hypomagnesemia PLAN: Continue current cardiac medications Change amiodarone to 400 mg twice a day. Taper at discharge includes 400 mg twice a day for 1 week, then 200 mg twice a day for 1 week, then 200 mg daily Continue anticoagulation with Eliquis. Continue aspirin. Plavix has been di scontinued. Continue telemetry monitoring Recommend outpatient ischemic evaluation Would recommend likely repeating echo as an outpatient in 1-2 months. Patient is stable for discharge home today from a cardiac standpoint Nurse practitioner note has been reviewed by physician. Signing provider agrees with the documented findings, assessment, and plan of care documented by [employer] OFFICER as a scribe. Objective - Vital Signs Vital signs: Vital Signs Temp 97.7 F 02/17/24 08:05 Pulse 61 02/17/24 11:11 Resp 18 02/17/24 11:11 BP 158/78 02/17/24 11:11 Pulse Ox 93 L 02/17/24 11:11 FiO2 Intake & Output 02/16/24 02/17/24 02/17/24 18:59 06:59 18:59 Intake Total 220 120 20 Balance 220 120 20 Weight 60.6 kg Intake: IV 20 Invasive Line 1 10 Invasive Line 2 10 Oral 220 120 Other: Voiding Method Toilet Toilet Toilet # Voids 3 2 # Bowel Movements 3 3 - Labs CBC & Chem 7: 02/17/24 06:25 02/17/24 06:25 Labs: Abnormal Lab Results - Last 24 Hours (Table) 02/16/24 02/16/24 02/16/24 Range/Units 12:04 16:48 19:51 WBC (3.8-10.6) k/uL RBC (3.80-5.40) m/uL Hgb (11.4-16.0) gm/dL Hct (34.0-46.0) % Neutrophils # (1.3-7.7) k/uL Lymphocytes # (1.0-4.8) k/uL BUN (7-17) mg/dL Creatinine (0.52-1.04) mg/dL Glucose (74-99) mg/dL POC Glucose (mg/dL) 251 H 245 H 260 H (70-110) mg/dL Procalcitonin (0.02-0.50) ng/mL 02/17/24 02/17/24 02/17/24 Range/Units 05:43 06:25 06:25 WBC 12.8 H (3.8-10.6) k/uL RBC 3.21 L (3.80-5.40) m/uL Hgb 10.1 L (11.4-16.0) gm/dL Hct 30.1 L (34.0-46.0) % Neutrophils # 11.6 H (1.3-7.7) k/uL Lymphocytes # 0.6 L (1.0-4.8) k/uL BUN (7-17) mg/dL Creatinine (0.52-1.04) mg/dL Glucose (74-99) mg/dL POC Glucose (mg/dL) 128 H (70-110) mg/dL Procalcitonin 0.78 H (0.02-0.50) ng/mL 02/17/24 Range/Units 06:25 WBC (3.8-10.6) k/uL RBC (3.80-5.40) m/uL Hgb (11.4-16.0) gm/dL Hct (34.0-46.0) % Neutrophils # (1.3-7.7) k/uL Lymphocytes # (1.0-4.8) k/uL BUN 41 H (7-17) mg/dL Creatinine 1.29 H (0.52-1.04) mg/dL Glucose 133 H (74-99) mg/dL POC Glucose (mg/dL) (70-110) mg/dL Procalcitonin (0.02-0.50) ng/mL Microbiology - Last 24 Hours (Table) 02/14/24 12:24 Blood Culture - Preliminary Blood
[2024-02-17 11:55] LABS: Glucose,Whole Blood 236 mg/dL (70-110)
[2024-02-17] MEDS: predniSONE 10 MG TAB PO STA (12:06)
--- NOTE | 2024-02-17 13:27 | P.DS ---
Providers Date of admission: 02/14/24 06:15 Expected date of discharge: 02/17/24 Attending physician: Franco Hardin MD Consults: 02/14/24 05:49 Consult Physician Routine Consulting Provider: Meng Mcgovern Consult Reason/Comments: pna Do you want consulting provider notified?: Yes 02/14/24 08:42 Consult Physician Stat Consulting Provider: Tono Benavides Consult Reason/Comments: New onset Afib Do you want consulting provider notified?: Yes Primary care physician: Olayinka Jain [facility] Course: Sepsis secondary to community-acquired pneumonia Trace hemoptysis, resolved Prerenal ORQUIDEA, resolving Hypovolemic hyponatremia, resolving High anion gap metabolic acidosis, resolving New onset atrial fibrillation with RVR now in sinus Cardiomyopathy systolic, EF 40 to 45%, likely nonischemic History of hypertension Hypotension, resolving Euthyroid sick syndrome Hypomagnesemia, resolved Hyperglycemia, steroid-induced Mild hypokalemia Hospital Course: 83-year-old female with history of COPD, not on oxygen, type 2 diabetes, CAD status post CABG, prior GI bleed, hypertension, abdominal aortic aneurysm s/p repair presenting with shortness of breath, mild productive cough with trace hemoptysis. n the ED, temperature was 97.9, pulse initially of 129 then increased to 175, blood pressure 93/59, saturating at 91% on room air. WBC 19.8, hemoglobin 11.6, platelet 298, sodium 128, potassium 3.4, bicarb 17, anion gap 18, BUN 51, creatinine 2.12, lactate 1.4, magnesium 1.3, troponin negative x 2. Respiratory viral panel negative. Chest x-ray independently interpreted, shows right upper lobe opacity. Chest CT shows COPD with advanced emphysema, confluent pneumonia posterior right upper lobe and right middle lobe. Initial EKG independently interpreted, shows sinus tachycardia with minimal ST-T wave changes. Repeat EKG shows atrial fibrillation with RVR with significant ST depressions in inferior lateral leads and some T wave flattening in anterior leads. In the ER patient was initially started on antibiotics and was given 1 L of normal saline. Due to elevated heart rate, was given further IV fluids, metoprolol IV 5 mg push given once with slight improvement in heart rate. Blood pressure was still soft, patient started on amiodarone drip. Cardiology was also consulted. Pulmonology consulted by ER. Patient being admitted for as inpatient for community-acquired pneumonia and A-fib RVR. Patient now in sinus rhythm, switched from IV amiodarone to oral amiodarone, started on Eliquis. Echocardiogram showed LVEF 40 to 45%, mild pulmonary hypertension, moderate to severe MR, moderate to severe tricuspid regurgitation. On day of discharge, patient was returned to room air. Procalcitonin was repeated and noted to be 0.78, down from 5.5. Patient was discharged with 2 additional days of cefdinir to complete a 5-day course. Patient will need follow-up with echocardiogram in 1 to 2 months as an outpatient per cardiology. Patient was discharged with home care services. I spent 40 minutes coordinating this discharge Gen: In NAD, non-toxic HEENT: normocephalic, atraumatic, hearing acuity is intant, mucous membranes moist CVS: perfusing all extremities well, no pitting edema, Respiratory: symmetric chest expansion, no accessory muscle use, GI: soft, NTTP, ND, : no suprapubic tenderness, no CVA tenderness MSK/Derm: no rashes, cyanosis Neuro: CN II-XII intact, no motor weakness, Psych: cooperative, euthymic mood, judgment and insight is intact Patient Condition at Discharge: Serious Plan - Discharge Summary Discharge Rx Participant: No New Discharge Prescriptions: New Amiodarone [Cordarone] See Rx Instructions .ROUTE .COMPLEX #60 tab Acetaminophen Tab [Tylenol] 650 mg PO Q6HR PRN tab PRN Reason: Mild Pain Or Fever > 100.5 Cefdinir [Omnicef] 300 mg PO Q12HR #4 capsule Apixaban [Eliquis] 2.5 mg PO BID #60 tab Gabapentin [Neurontin] 200 mg PO DAILY #60 cap Continue Vitamin B Complex 1 cap PO DAILY Ascorbic Acid [Vitamin C] 1,000 mg PO DAILY Krill/Om-3/Dha/Epa/Phospho/Ast [[place]-3 Krill Oil 300 mg Sfgl] 1 cap PO DAILY Ergocalciferol (Vitamin D2) [Drisdol (50,000 Iu)] 1,250 mcg PO Q14D Nitroglycerin Sl Tabs [Nitrostat] 0.4 mg SUBLINGUAL Q5M PRN PRN Reason: Chest Pain Budesonide/Formoterol Fumarate [Symbicort 160-4.5 Mcg Inhaler] 2 puff INHALATION RT-BID Albuterol Sulfate [Ventolin HFA] 2 puff INHALATION RT-Q4H PRN PRN Reason: Shortness Of Breath Metoprolol Tartrate [Lopressor] 50 mg PO BID Ferrous Sulfate [Slow Release Iron] 140 mg PO DAILY DULoxetine HCL [Cymbalta] 60 mg PO DAILY Aspirin EC [Ecotrin Low Dose] 81 mg PO DAILY Loratadine [Claritin] 10 mg PO DAILY guaiFENesin [Mucinex] 600 mg PO Q12H Vit C/E/Zn/Coppr/Lutein/Zeaxan [Preservision Areds 2 Softgel] 1 cap PO BID Potassium Chloride ER [K-Dur 20] 20 meq PO DAILY Pantoprazole [Protonix] 40 mg PO DAILY metFORMIN HCL [Glucophage] 500 mg PO BID-W/MEALS Lovastatin [Mevacor] 80 mg PO HS Ipratropium [place] 0.06%Nasal [Atrovent Nasal 0.06%] 2 spray EA NOSTRIL TID gemfibroziL [Lopid] 600 mg PO BID-W/MEALS Cyclosporine (Cequa) 0.09% Dropperette 1 drop BOTH EYES BID Changed Losartan [Cozaar] 25 mg PO DAILY #0 Discontinued Clopidogrel [Plavix] 75 mg PO DAILY Gabapentin 600 mg PO DAILY hydrOXYzine HCL [Atarax] 50 mg PO HS PRN PRN Reason: INSOMNIA/STRESS hydroCHLOROthiazide [Hydrodiuril] 25 mg PO DAILY Discharge Medication List Albuterol Sulfate [Ventolin HFA] 2 puff INHALATION RT-Q4H PRN 08/17/23 [History] Ascorbic Acid [Vitamin C] 1,000 mg PO DAILY 08/17/23 [History] Aspirin EC [Ecotrin Low Dose] 81 mg PO DAILY 08/17/23 [History] Budesonide/Formoterol Fumarate [Symbicort 160-4.5 Mcg Inhaler] 2 puff INHALATION RT-BID 08/17/23 [History] DULoxetine HCL [Cymbalta] 60 mg PO DAILY 08/17/23 [History] Ergocalciferol (Vitamin D2) [Drisdol (50,000 Iu)] 1,250 mcg PO Q14D 08/17/23 [History] Ferrous Sulfate [Slow Release Iron] 140 mg PO DAILY 08/17/23 [History] Ipratropium [place] 0.06%Nasal [Atrovent Nasal 0.06%] 2 spray EA NOSTRIL TID 08/17/23 [History] Krill/Om-3/Dha/Epa/Phospho/Ast [[place]-3 Krill Oil 300 mg Sfgl] 1 cap PO DAILY 08/17/23 [History] Loratadine [Claritin] 10 mg PO DAILY 08/17/23 [History] Lovastatin [Mevacor] 80 mg PO HS 08/17/23 [History] Metoprolol Tartrate [Lopressor] 50 mg PO BID 08/17/23 [History] Nitroglycerin Sl Tabs [Nitrostat] 0.4 mg SUBLINGUAL Q5M PRN 08/17/23 [History] Pantoprazole [Protonix] 40 mg PO DAILY 08/17/23 [History] Potassium Chloride ER [K-Dur 20] 20 meq PO DAILY 08/17/23 [History] Vit C/E/Zn/Coppr/Lutein/Zeaxan [Preservision Areds 2 Softgel] 1 cap PO BID 08/17/23 [History] Vitamin B Complex 1 cap PO DAILY 08/17/23 [History] gemfibroziL [Lopid] 600 mg PO BID-W/MEALS 08/17/23 [History] metFORMIN HCL [Glucophage] 500 mg PO BID-W/MEALS 08/17/23 [History] Cyclosporine (Cequa) 0.09% Dropperette 1 drop BOTH EYES BID 02/14/24 [History] guaiFENesin [Mucinex] 600 mg PO Q12H 02/14/24 [History] Acetaminophen Tab [Tylenol] 650 mg PO Q6HR PRN tab 02/17/24 [Rx] Amiodarone [Cordarone] See Rx Instructions .ROUTE .COMPLEX #60 tab 02/17/24 [Rx] Apixaban [Eliquis] 2.5 mg PO BID #60 tab 02/17/24 [Rx] Cefdinir [Omnicef] 300 mg PO Q12HR #4 capsule 02/17/24 [Rx] Gabapentin [Neurontin] 200 mg PO DAILY #60 cap 02/17/24 [Rx] Losartan [Cozaar] 25 mg PO DAILY #0 02/17/24 [Rx] Follow up Appointment(s)/Referral(s): Olayinka Jain DO [Primary Care Provider] - 1-2 days Discharge Disposition: HOME WITH HOME HEALTH SERVICES
--- NOTE | 2024-02-17 15:14 | P.PN ---
Subjective Progress Note Date: 02/17/24 This is a 83-year-old female patient with known history of COPD, no history of coronary disease and previous bypass surgery along with previous history of abdominal aortic aneurysm status postsurgical repair along with history of hypertension. The patient presented to the hospital because of worsening s hortness of breath. Symptoms started approximately a week ago. The patient felt that she was having symptoms of URI and subsequently she became more short of breath, and she developed increased cough and sputum production and earlier this morning the patient had some trace hemoptysis. She was also experiencing fever and chills along with shortness of breath. Based on those symptoms, the patient ended up coming into the emergency department where chest x-ray was done and showed a large area of consolidation in the right upper lobe consistent with a lobar pneumonia. No altered mentation. No nausea. No emesis. The initial white count was at 19.8 with a hemoglobin of 11.6 and a platelet count of 298. Sodium levels at 128, potassium levels at 3.4, serum bicarb is at 17 with a BUN of 51 and a creatinine of 2.1 consistent with an acute kidney injury. LFTs were normal, troponins were negative, free T4 is at 1.06 and the viral screen/viral 4 Plex was negative. The patient was also noted to be in atrial fibrillation with rapid medical response. The patient was given a liter of bolus of normal saline. The patient was started on IV Rocephin and Zithromax. The patient was given 5 mg of metoprolol IV push and following that the patient was started on amiodarone drip for rate control. The patient is also on anticoagulation with Eliquis 2.5 mg twice a day. In terms of her COPD, the patient has moderately severe disease with an FEV1 of 57% of predicted, maintained on Symbicort on outpatient basis. 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 A CT of the chest was also done in the emergency department and it showed COPD with extensive right upper lobe pulmonary consolidation consistent with pneumonia. The patient had a calcified granuloma in the right upper lobe. There was also evidence of some chronic liver disease probably early cirrhosis. Some hepatic cysts were also seen measuring up to 1 cm in size. Noted the patient also has an abdominal aortic aneurysm and the patient has undergone endovascular stent grafting and the aneurysm was again visualized on the CT of the chest. Currently she is on oxygen at 1.5 L/min nasal cannula. Rate is under better control yet the patient continues to be in atrial fibrillation. Cardiology consultation has been requested. Noted the patient has undergone a previous Cardiolite Lexiscan stress test in the office on 07/22/2020 revealing a normal ejection fraction of 60% with mild anterior septal fixed defect without any reversible ischemia. On 02/15/2024, the patient is being seen for a follow-up. The patient remains in the emergency department as the patient is being treated for pneumonia and the patient has a right lower lobe consolidation for which she was started on a combination of Rocephin and Zithromax. She is also on bronchodilators. She is also on steroids. In terms of her atrial fibrillation, the patient was switched to oral amiodarone 4 mg p.o. twice daily. She is on anticoagulation with Eliquis 2.5 mg p.o. daily. She is also on metoprolol 50 mg p.o. twice a day. White cell count today is at 13 with a hemoglobin 9.3 and a platelet count of 244. BUN is 44 with a creatinine of 1.4 and sodium levels at 133 and a potassium level is at 3.5. Cultures are still pending for now. No other significant events. She is awake and alert and communicating. On 02/16/2024, condition is stable and the patient seems to be feeling better and she seems to be less short of breath. The white cell count is dropped down to 14. Renal function also improved and the creatinine is down to 1.09. Rest of the electrolytes show a sodium level of 137, potassium of 3.3, chloride of 103 and a bicarb level is at 20. The patient remains on Rocephin. Cardiac rhythm is back to sinus. The patient is currently on anticoagulation with Eliquis 2.5 mg p.o. twice daily and the patient is also on amiodarone 4 mg p.o. twice a day. She is receiving DuoNeb nebulized treatments [id number], IV Solu-Medrol, IV Rocephin, Symbicort as maintenance and the patient is also on Levemir insulin 5 units daily for blood sugar control. Repeat chest x-ray was done today and it shows no significant change in the right upper lobe consolidation and the findings are essentially stable. Clinically however the patient is feeling better. She is currently on room air oxygen with a pulse ox of 94%. No other s ignificant events overnight. On 02/17/2024, the patient is being seen for a follow-up. The patient is doing well. She is currently on room air oxygen. A follow-up chest x-ray was obtained today and there is improvement in the right upper lobe masslike consolidation and the area is obviously smaller on today's chest x-ray findings. The patient is feeling better. Cough and congestion is improved. The white cell count is also improving. She has converted into normal sinus rhythm. The patient is being considered for discharge on oral antibiotics and anticoagulation with Eliquis. She will be also maintained on amiodarone. White cell count today is at 12.8 with a hemoglobin 10.1 and platelet count of 338. BUN is 41 with a creatinine of 1.2 and sodium levels at 139. The procalcitonin level has dropped from 5.1 down to 0.7. Alert and awake and communicating. Denies having any other specific complaints. Objective - Vital Signs Vital signs: Vital Signs Temp 97.7 F 02/17/24 08:05 Pulse 86 02/17/24 08:05 Resp 18 02/17/24 08:05 BP 153/74 02/17/24 08:05 Pulse Ox 92 L 02/17/24 08:05 FiO2 Intake & Output 02/16/24 02/17/24 02/17/24 18:59 06:59 18:59 Intake Total 220 120 20 Balance 220 120 20 Weight 60.6 kg Intake: IV 20 Invasive Line 1 10 Invasive Line 2 10 Oral 220 120 Other: Voiding Method Toilet Toilet Toilet # Voids 3 2 # Bowel Movements 3 3 - Exam The patient appeared well nourished and normally developed. Vital signs as documented. Calm and comfortable on room air oxygen Head exam is unremarkable. No scleral icterus or corneal arcus noted. Neck is without jugular venous distension, thyromegaly, or carotid bruits. Carotid upstrokes are brisk bilaterally. Lungs diminished breath sounds along with scattered rhonchi and crackles over the right upper anterior and posterior chest. Cardiac exam revealed the PMI to be normally situated and sized. The rhythm was regular and no extrasystoles were noted during several minutes of auscultation. The first and second heart sounds were normal and physiologic splitting of the second heart sound was noted. There were no murmurs, rubs, clicks, or gallops. Abdominal exam reveals normal bowel sounds, no masses, no organomegaly and no aortic enlargement. Extremities are nonedematous and both femoral and pedal pulses are normal. Examination of the skin revealed no evidence of significant rashes, suspicious appearing nevi or other concerning lesions. Neurologically, the patient is awake and alert and the patient does not have any focal neurological deficit. Cranial nerves are essentially intact. - Labs CBC & Chem 7: 02/17/24:02/17/24 06: Labs: Abnormal Lab Results - Last 24 Hours (Table) 02/16/24 02/16/24 02/16/24 Range/Units 12:04 16:48 19:51 WBC (3.8-10.6) k/uL RBC (3.80-5.40) m/uL Hgb (11.4-16.0) gm/dL Hct (34.0-46.0) % Neutrophils # (1.3-7.7) k/uL Lymphocytes # (1.0-4.8) k/uL BUN (7-17) mg/dL Creatinine (0.52-1.04) mg/dL Glucose (74-99) mg/dL POC Glucose (mg/dL) 251 H 245 H 260 H (70-110) mg/dL 02/17/24 02/17/24 02/17/24 Range/Units 05:43 06:25 06:25 WBC 12.8 H (3.8-10.6) k/uL RBC 3.21 L (3.80-5.40) m/uL Hgb 10.1 L (11.4-16.0) gm/dL Hct 30.1 L (34.0-46.0) % Neutrophils # 11.6 H (1.3-7.7) k/uL Lymphocytes # 0.6 L (1.0-4.8) k/uL BUN 41 H (7-17) mg/dL Creatinine 1.29 H (0.52-1.04) mg/dL Glucose 133 H (74-99) mg/dL POC Glucose (mg/dL) 128 H (70-110) mg/dL Microbiology - Last 24 Hours (Table) 02/14/24 12:24 Blood Culture - Preliminary Blood Assessment and Plan Plan: Acute right upper lobe lobar pneumonia, most consistent with a bacterial pneumonia. Viral 4 Plex has been negative. The patient has extensive consolidation of the right upper lobe and this is highly suggestive of an u nderlying bacterial pneumonia. Based on the underlying dwayne mucus/hemoptysis, and pneumococcal pneumonia is suspected. The patient is currently on a combination of Rocephin and Zithromax. Clinically improving and the patient is currently on room air oxygen. Chest x-ray shows a stable right upper lobe consolidation on follow-up chest x-ray that was done on 02/16/2024. Follow-up chest x-ray from 02/17/2024 shows interval improvement in the right upper lobe consolidation which is smaller in size and there is also significant drop in the patient's procalcitonin level. Acute hypoxic respiratory failure currently on room air oxygen Acute COPD exacerbation secondary to above, improving Shortness of breath secondary to above Acute leukocytosis secondary to above, improving Acute kidney injury, improving Atrial fibrillation of new onset, currently on amiodarone p.o. and anticoagulation with Eliquis and the patient is converted to normal sinus rhythm. 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 The patient also has coronary stents Hypertension Hyperlipidemia History of breast cancer, status post right lumpectomy followed by treatment with Femara Plan Titrate oxygen flow to maintain saturation above 90%, currently on room air oxygen Blood cultures are negative Check baseline procalcitonin level and the results are elevated at 5.15, repeat procalcitonin level improved down to 0.7 Continue IV Rocephin IV Solu-Medrol 40 mg every 8 hours Continue oral amiodarone, cardiac rhythm is converted into sinus The patient can be discharged home on oral antibiotics, oral amiodarone and the patient will be also placed on anticoagulation with Eliquis. Prednisone burst taper Resume home medications To be seen in the office in 2 to 3 weeks time for a follow-up chest x-ray. Cleared for discharge from a pulmonary standpoint.
--- NOTE | 2024-02-20 15:54 | CDI ---
Documentation Clarification Form Date: 02/20/2024 03:39:39 PM From: Naomi Colindres Phone: Admit Date: 02/14/2024 06:15:00 AM Patient Name: Malika Smallwood Visit Number: [id number] Discharge Date: 02/17/2024 02:31:00 PM ATTENTION: The Clinical Documentation Specialists (CDI) and [facility] Coding Staff appreciate your assistance in clarifying documentation. Please respond to the clarification below the line at the bottom and electronically sign. The CDI & [facility] Coding staff will review the response and follow-up if needed. Please note: Queries are made part of the Legal Health Record. If you have any questions, please contact the author of this message via ITS. Doctor/Provider: Danile Ng Unspecified CKD is documented per Consult 02/13 and Progress notes 02/14- 02/16. Additional clarification regarding the stage of CKD is requested. History/Risk Factors: 83yo F, Sepsisd/t CAP, ORQUIDEA, hypovolemichyponatremia, HAGMA, PAF, NICM, HTN, ESS, hypotension, hypomagnesemia,hyperglycemia,steroid- induced, hypokalemia Clinical Indicators: BUN: 02/13 49 02/14 44 02/15 40 02/16 41 CR: 02/13 1.79 02/14 1.40 02/15 1.09 02/16 1.29 GFR: 02/13 26/30 02/14 35/41 02/15 48/55 02/16 39/45 Treatment: monitored Please clarify the stage of the CKD, if known: [ x ] CKD Stage 3a [ ] CKD Stage 3b [ ] CKD Stage 4 [ ] Other, please specify [ ] Unable to determine Reference: National Kidney Foundation Stage 1 eGFR = 90 and kidney damage for =3 months Stage 2 eGFR 60-89 and kidney damage for =3 months Stage 3a eGFR 45-59 and kidney damage for =3 months Stage 3b eGFR 30-44 and kidney damage for =3 months Stage 4 eGFR 15-29 r and kidney damage for =3 months Stage 5 eGFR <15 and kidney damage for =3 months (Template last revised: February 2023) MTDD
== END 2024-02-17 14:31 | disposition home health service (06) | DRG 871 ==
LOC: EC 04:59 → 5NMEDONC 06:15 → 3SCARD 02-15 00:36
PROVIDERS: ADMIT Internal Medicine; ATTEND Internal Medicine
DX: A41.9 Sepsis, unspecified organism (principal); J18.1 Lobar pneumonia, unspecified organism; J96.01 Acute respiratory failure with hypoxia; E87.20 Acidosis, unspecified; K92.0 Hematemesis; I42.8 Other cardiomyopathies; R04.2 Hemoptysis; N17.9 Acute kidney failure, unspecified; E87.1 Hypo-osmolality and hyponatremia; I27.22 Pulmonary hypertension due to left heart disease; J84.10 Pulmonary fibrosis, unspecified; K74.60 Unspecified cirrhosis of liver; E11.22 Type 2 diabetes mellitus with diabetic chronic kidney disease; J43.9 Emphysema, unspecified; E11.40 Type 2 diabetes mellitus with diabetic neuropathy, unspecified; I71.40 Abdominal aortic aneurysm, without rupture, unspecified; E11.65 Type 2 diabetes mellitus with hyperglycemia; N18.31 Chronic kidney disease, stage 3a; I48.0 Paroxysmal atrial fibrillation; I12.9 Hypertensive chronic kidney disease with stage 1 through stage 4 chronic kidney disease, or unspecified chronic kidney disease; F32.A Depression, unspecified; I08.1 Rheumatic disorders of both mitral and tricuspid valves; E07.81 Sick-euthyroid syndrome; E86.1 Hypovolemia; E78.5 Hyperlipidemia, unspecified; I25.10 Atherosclerotic heart disease of native coronary artery without angina pectoris; I95.9 Hypotension, unspecified; E83.42 Hypomagnesemia; E87.6 Hypokalemia; F41.9 Anxiety disorder, unspecified; K21.9 Gastro-esophageal reflux disease without esophagitis; T38.0X5A Adverse effect of glucocorticoids and synthetic analogues, initial encounter; Z87.891 Personal history of nicotine dependence; Z79.899 Other long term (current) drug therapy; Z79.82 Long term (current) use of aspirin; Z79.51 Long term (current) use of inhaled steroids; Z79.02 Long term (current) use of antithrombotics/antiplatelets; Z79.84 Long term (current) use of oral hypoglycemic drugs; Z95.1 Presence of aortocoronary bypass graft; Z86.79 Personal history of other diseases of the circulatory system; Z85.3 Personal history of malignant neoplasm of breast; Z87.19 Personal history of other diseases of the digestive system
CPT/HCPCS: 36415; 71045; 71046; 71250; 76770; 80048; 80053; 80061; 81001; 83605; 83735; 83880; 84145; 84439; 84443; 84484; 85025; 85610; 85730; 87040; 87449; 87636; 93005; 93306; 94640; 96365; 96366; 96367; 96368; 96375; 96376; 99285

== ENCOUNTER → 2024-04-24 | Outpatient (CLI) | payer MEDICARE, OTHER ==
--- NOTE | 2024-04-24 12:56 | XR ---
EXAMINATION TYPE: XR chest 2V DATE OF EXAM: 04/24/2024 12:49 PM COMPARISON: Chest radiographs from 02/17/2024 CLINICAL INDICATION: Female, 83 years old with history of Z87.01 HX OF PNEUMONIA; [facility] TECHNIQUE: XR chest 2V Frontal and lateral views of the chest. FINDINGS: Lungs/Pleura: There is flattening of the diaphragm with increased lucency of the lungs. No evidence o f pneumothorax, pleural effusion or focal consolidation. Similar right upper lobe calcified nodule me asuring 13 mm and inferiorly measuring 8 mm Pulmonary vascularity: Unremarkable. Heart/mediastinum: Cardiomediastinal silhouette is unremarkable. Aortic stent graft noted. Musculoskeletal: No acute osseous pathology. IMPRESSION: 1. No acute cardiopulmonary disease process. 2. COPD changes. [facility], , 04/24/2024 12:53 PM
== END | disposition home or self-care (01) ==
LOC: RADXRMAIN 12:35
PROVIDERS: ATTEND Internal Medicine
DX: J44.9 Chronic obstructive pulmonary disease, unspecified (principal); Z87.01 Personal history of pneumonia (recurrent)
CPT/HCPCS: 71046

== ENCOUNTER → 2024-05-04 | Outpatient (CLI) | payer MEDICARE, OTHER ==
--- NOTE | 2024-05-04 08:21 | US ---
EXAMINATION TYPE: US abdomen complete DATE OF EXAM: 05/04/2024 COMPARISON: Renal ultrasound 02/14/2024, CT abdomen and pelvis 08/17/2023 CLINICAL INDICATION: Female, 83 years old with history of K21.9 GERD; pain TECHNIQUE: Grayscale and color Doppler imaging of the abdomen was performed. FINDINGS: EXAM MEASUREMENTS: Liver Length: 14 cm Gallbladder Wall: Surgically absent CBD: .4 cm, color Doppler imaging was utilized to isolate the common bile duct for measurement. Spleen: 9.2 cm Right Kidney: 8.7 x 3.9 x 3.9 cm Left Kidney: 9.9 x 4.4 x 4.0 cm [employer]IVIL DESIGNER NOTES: Pancreas: Tail obscured by overlying bowel gas Liver: Increased attenuation, no dilated ducts, masses or cysts. Gallbladder: Surgically absent CBD: wnl Spleen: Granulomas visualized. Right Kidney: Anechoic area seen lower pole 3.5 x 2.8 x 2.8 cm. Left Kidney: wnl, No hydronephrosis, calculi or masses seen Upper IVC: wnl Abd Aorta: Stent visualized mid area 4.7x 5.4 cm The liver has diffusely increased echogenicity without focal lesion. The intrahepatic portion of the IVC is within normal limits. Stent visualized within the mid abdominal aorta with aneurysm measuring up to 5.4 cm. The gallbladder is surgically absent. Common bile duct is unremarkable. The visualized portions of the pancreas are homogenous. The tail is obscured by overlying bowel gas. The spleen is nonenlarged with calcified granulomas. Kidneys are symmetric and free of hydronephrosis. No left julisa al lesion. Right renal lower pole simple 3.5 cm cyst. IMPRESSION: 1. No ultrasound evidence for acute process. 2. Mild hepatic steatosis. 3. Abdominal aortic aneurysm with stent identified. 4. Simple right renal cyst. 5. Postsurgical cystectomy changes. [facility], , 05/04/2024 8:18 AM
== END | disposition home or self-care (01) ==
LOC: RADUSWWP 06:59
PROVIDERS: ATTEND Internal Medicine
DX: K76.0 Fatty (change of) liver, not elsewhere classified (principal); K21.9 Gastro-esophageal reflux disease without esophagitis; I71.40 Abdominal aortic aneurysm, without rupture, unspecified; N28.1 Cyst of kidney, acquired; Z98.890 Other specified postprocedural states
CPT/HCPCS: 76700

== ENCOUNTER 2024-06-15 07:55 | Day surgery (SDC) | payer MEDICARE, OTHER ==
[2024-06-15 08:20] VITALS: TEMP 97.9
[2024-06-15] MEDS: IV FLUID CONTINUATION 1,000 ML IV ONE (08:30)
[2024-06-15] MEDS: LACTATED RINGERS 1,000 ML IV SCH (08:30)
[2024-06-15 08:35] LABS: Glucose,Whole Blood 91 mg/dL (70-110)
[2024-06-15] MEDS ORDERED: PROPOFOL 10 MG/ML 20 ML VIAL IV ONE (09:02)
[2024-06-15] MEDS ORDERED: LIDOCAINE 1% INJ 10MG/ML (20 ML MDV) ONE (09:02)
--- NOTE | 2024-06-15 09:24 | P.PCN ---
Date of Procedure: 06/15/24 Procedure(s) Performed: Brief history: Patient is a pleasant 83-year-old white female scheduled for an elective upper endoscopy as well as colonoscopy as a part of evaluation of GERD and iron deficiency anemia. History of A-fib and has been on Eliquis which is on hold for 2 days. She denies any rectal bleeding. Procedure performed: Esophagogastroduodenoscopy with biopsy and cautery Colonoscopy with biopsy Preoperative diagnosis: GERD Iron deficiency anemia Anesthesia: MAC Procedure: After informed consent was obtained from the patient was brought into the endoscopy unit and IV sedation was administered by anesthesia under continuous monitoring. Initially upper endoscopy was done. The Olympus GF 160 video endoscope was inserted inserted into the mouth and esophagus intubated without any difficulty and was gradually advanced into the stomach and duodenum and carefully examined. The bulb and second part of the duodenum appeared normal. The scope was then withdrawn into the stomach adequately insufflated with air and upon careful examination the antrum and body, scattered angiectasia identified with no active bleeding but some old blood noted. Cautery was performed single gold probe. There was mild gastritis noted in the antrum which was biopsied. Cardia and fundus appeared normal. The scope was then withdrawn into the esophagus. Small hiatal hernia noted. The GE junction was located at 40 cm to the incisors. It appeared regular with no erythema erosions or ulcerations. Rest of the esophagus appeared normal. Patient tolerated the procedure well. At this time the patient continued to remain sedation. Initial digital rectal examination was normal. Olympus CF 160 video colonoscope was then inserted into the rectum and gradually advanced to the cecum without any difficulty. Careful examination was performed as the scope was gradually being withdrawn. The prep was excellent. The cecum, ascending colon, transverse colon appeared normal. Mucosa of the descending colon and sigmoid colon had patchy areas of erythema noted but no erosions or ulcerations seen. Biopsies were done from this area to rule out colitis. Rest of the, descending colon, sigmoid colon and rectum appeared normal. Scattered sigmoid diverticulosis. Retroflexion was performed in the rectum and no lesions were noted. Patient tolerated the procedure well. Impression: 1. Upper endoscopy revealed scattered angiectasia in the gastric body status post cautery using a gold probe and small hiatal hernia 2. Colonoscopy revealed few patchy areas of erythema noted in the sigmoid colon and descending colon with normal-appearing intervening mucosa this was biopsied colitis. Scattered sigmoid diverticulosis Recommendations: Findings of this examination were discussed with the patient as well as her family. She was advised to follow-up with the biopsy results. Resume Crystal today. Follow-up in the office in 2 weeks
[2024-06-15 09:31] VITALS: PULSE 67
[2024-06-15 09:46] VITALS: BP 133/60; RESP 18
== END 2024-06-15 10:06 | disposition home or self-care (01) ==
LOC: ORWHC2ENDO 07:55
PROVIDERS: ATTEND Internal Medicine Gastroenterology
DX: K29.50 Unspecified chronic gastritis without bleeding (principal); K52.9 Noninfective gastroenteritis and colitis, unspecified; K21.9 Gastro-esophageal reflux disease without esophagitis; K57.30 Diverticulosis of large intestine without perforation or abscess without bleeding; K44.9 Diaphragmatic hernia without obstruction or gangrene; D64.9 Anemia, unspecified; D53.8 Other specified nutritional anemias
CPT/HCPCS: 88305; 45380; 43239; 43255; J2003; J2704; 43270

== ENCOUNTER → 2024-07-25 | Outpatient (CLI) | payer MEDICARE, OTHER ==
[2024-07-25 18:14] LABS: Basophils # (A) 0.08 X 10*3/uL (0.00-0.10); Basophils % (A) 1.6 %; Eosinophils # (A) 0.28 X 10*3/uL (0.04-0.35); Eosinophils % (A) 5.6 %; HCT 34.7 % (37.2-46.3); HGB 10.7 g/dL (12.0-15.0); Lymphocytes # (A) 1.08 X 10*3/uL (0.90-5.00); Lymphocytes % (A) 21.6 %; MCH 30.9 pg (27.0-32.0); MCHC 30.8 g/dL (32.0-37.0); MCV 100.3 FL (80.0-97.0); Mean Platelet Volume 9.7 FL (9.5-12.2); Monocytes # (A) 0.57 X 10*3/uL (0.20-1.00); Monocytes % (A) 11.4 %; NRBC Per 100 WBC 0 X 10*3/uL (0.00-0.01); Neutrophils # (A) 2.97 X 10*3/uL (1.80-7.70); Neutrophils % (A) 59.6 %; Platelet Count 228 X 10*3/uL (140-440); RBC 3.46 X 10*6/uL (4.10-5.20); RDW 14.6 % (11.5-14.5); WBC 4.99 X 10*3/uL (4.50-10.00)
[2024-07-25 18:56] LABS: % Iron Saturation 49.06 (12.00-45.00); ALT 37 U/L (8-44); AST 43 U/L (13-35); Albumin 4.2 g/dL (3.8-4.9); Albumin/Globulin Ratio 1.68 Ratio (1.60-3.17); Alkaline Phosphatase 96 U/L (41-126); BUN/Creat Ratio 35.09 Ratio (12.00-20.00); Bilirubin, Conjugated <0.20 mg/dL (0.20-0.40); Bilirubin,Unconjugated >0.10 mg/dL (0.20-1.00); Blood Urea Nitrogen 38.6 mg/dL (9.0-27.0); Calcium 9.5 mg/dL (8.7-10.3); Chloride 101 mmol/L (96-109); Globulin 2.5 g/dL (1.6-3.3); Glucose 91 mg/dL (70-110); Iron 208 UG/DL (50-170); Magnesium 2.4 mg/dL (1.5-2.4); Potassium 3.1 mmol/L (3.5-5.5); Sodium 140 mmol/L (135-145); Total Bilirubin 0.3 mg/dL (0.3-1.2); Total Iron Binding Capacity 424 UG/DL (228-460); Total Protein 6.7 g/dL (6.2-8.2)
[2024-07-25 21:21] LABS: Hepatitis A Antibody IgM Nonreactive (Nonreactive); Hepatitis B Core IgM Nonreactive (Nonreactive); Hepatitis B Surface Antigen Nonreactive (Nonreactive); Hepatitis C IgG Antibody Nonreactive (Nonreactive)
[2024-07-26 04:25] LABS: EBV - VCA IgM <10.0 U/mL (<36.0)
[2024-07-26 10:42] LABS: Smooth Muscle Antibody 23 UNITS (<20)
== END | disposition home or self-care (01) ==
LOC: LABWHC1 12:41
PROVIDERS: ATTEND Internal Medicine
DX: E11.9 Type 2 diabetes mellitus without complications (principal); R74.01 Elevation of levels of liver transaminase levels; J18.9 Pneumonia, unspecified organism
CPT/HCPCS: 36415; 80053; 80074; 82248; 82306; 83036; 83516; 83540; 83550; 83735; 83970; 84443; 85025; 86038; 86645; 86665

== ENCOUNTER → 2024-08-03 | Outpatient (CLI) | payer MEDICARE, OTHER ==
[2024-08-03 15:26] LABS: Basophils # (A) 0.07 X 10*3/uL (0.00-0.10); Basophils % (A) 1.5 %; Eosinophils # (A) 0.26 X 10*3/uL (0.04-0.35); Eosinophils % (A) 5.6 %; HCT 34.9 % (37.2-46.3); HGB 10.5 g/dL (12.0-15.0); Lymphocytes # (A) 1.35 X 10*3/uL (0.90-5.00); Lymphocytes % (A) 29.2 %; MCH 30.3 pg (27.0-32.0); MCHC 30.1 g/dL (32.0-37.0); MCV 100.9 FL (80.0-97.0); Mean Platelet Volume 9.4 FL (9.5-12.2); Monocytes # (A) 0.68 X 10*3/uL (0.20-1.00); Monocytes % (A) 14.7 %; NRBC Per 100 WBC 0 X 10*3/uL (0.00-0.01); Neutrophils # (A) 2.25 X 10*3/uL (1.80-7.70); Neutrophils % (A) 48.8 %; Platelet Count 198 X 10*3/uL (140-440); RBC 3.46 X 10*6/uL (4.10-5.20); RDW 13.8 % (11.5-14.5); WBC 4.62 X 10*3/uL (4.50-10.00)
[2024-08-03 16:09] LABS: ALT 38 U/L (8-44); AST 48 U/L (13-35); Albumin 3.8 g/dL (3.8-4.9); Albumin/Globulin Ratio 1.65 Ratio (1.60-3.17); Alkaline Phosphatase 116 U/L (41-126); BUN/Creat Ratio 32.56 Ratio (12.00-20.00); Blood Urea Nitrogen 29.3 mg/dL (9.0-27.0); Calcium 9.6 mg/dL (8.7-10.3); Carbon Dioxide 26.9 mmol/L (21.6-31.8); Chloride 102 mmol/L (96-109); Globulin 2.3 g/dL (1.6-3.3); Glucose 118 mg/dL (70-110); Magnesium 2.1 mg/dL (1.5-2.4); Potassium 3.7 mmol/L (3.5-5.5); Sodium 140 mmol/L (135-145); Total Bilirubin 0.2 mg/dL (0.3-1.2); Total Protein 6.1 g/dL (6.2-8.2)
== END | disposition home or self-care (01) ==
LOC: LABWHC1 08:38
PROVIDERS: ATTEND Internal Medicine
DX: I12.9 Hypertensive chronic kidney disease with stage 1 through stage 4 chronic kidney disease, or unspecified chronic kidney disease (principal); K31.819 Angiodysplasia of stomach and duodenum without bleeding; N18.9 Chronic kidney disease, unspecified
CPT/HCPCS: 36415; 80053; 82607; 82746; 83735; 85025

== ENCOUNTER → 2024-08-29 | Outpatient (CLI) | payer MEDICARE, OTHER ==
--- NOTE | 2024-08-29 11:34 | MM ---
Reason for Exam: Hx of breast cancer, conservation therapy. Last screening mammogram was performed 12 month(s) ago. Patient History: Menarche at age 14. First Full-Term at age 19. Left ovary removed at age 45. Right ovary removed at age 45. Hysterectomy at age 45. Postmenopausal. Breast cancer, right, age 76. 08/05/2016, Lumpectomy on the Right side. Prior Study Comparison: 08/24/2021 Bilateral MG 3D screening mammo w/cad, [facility]. 08/25/2022 Bilateral MG 3D screening mammo w/cad, [facility]. 08/29/2023 Bilateral MG 3D screening mammo w/cad, [facility]. Tissue Density: The breasts are heterogeneously dense, which may obscure small masses. Findings: Analyzed By CAD. Right breast: Stable right breast cyst posterior nipple line with peripheral calcification. There is no suspicious group of microcalcifications or new suspicious mass. Left breast: There is no suspicious group of microcalcifications or new suspicious mass. Overall Assessment: Benign, BI-RAD 2 Management: Screening Mammogram of both breasts in [address] [facility] will attempt to contact patient to return for supplemental views and ultrasound if indicated. Patient should continue monthly self-breast exams. A clinical breast exam by your physician is recommended on an annual basis. This exam should not preclude additional follow-up of suspicious palpable abnormalities. Note on Liza scores and lifetime risk: 1. A Liza score greater than 3% is considered moderate risk. If this is the case, consider specialist referral to assess eligibility for a risk reducing agent. 2. If overall lifetime risk for the development of breast cancer is 20% or higher, the patient may qualify for future screening with alternating mammogram and breast MRI. [facility], , 08/29/2024 11:15 AM. Electronically signed and approved by: Trae Rodriguez DO
[2024-08-29 15:48] LABS: Basophils # (A) 0.09 X 10*3/uL (0.00-0.10); Basophils % (A) 1.6 %; Eosinophils # (A) 0.27 X 10*3/uL (0.04-0.35); Eosinophils % (A) 4.8 %; HCT 38.4 % (37.2-46.3); HGB 12.0 g/dL (12.0-15.0); Immature Grans, Automated 0.40 %; Lymphocytes # (A) 1.18 X 10*3/uL (0.90-5.00); Lymphocytes % (A) 21.1 %; MCH 30.2 pg (27.0-32.0); MCHC 31.3 g/dL (32.0-37.0); MCV 96.7 FL (80.0-97.0); Monocytes # (A) 0.75 X 10*3/uL (0.20-1.00); Monocytes % (A) 13.4 %; NRBC Per 100 WBC 0 X 10*3/uL (0.00-0.01); Neutrophils # (A) 3.28 X 10*3/uL (1.80-7.70); Neutrophils % (A) 58.7 %; Platelet Count 189 X 10*3/uL (140-440); RBC 3.97 X 10*6/uL (4.10-5.20); RDW 13.5 % (11.5-14.5); WBC 5.59 X 10*3/uL (4.50-10.00)
[2024-08-29 16:00] LABS: ALT 32 U/L (8-44); AST 45 U/L (13-35); Albumin 4.0 g/dL (3.8-4.9); Albumin/Globulin Ratio 1.74 Ratio (1.60-3.17); Alkaline Phosphatase 99 U/L (41-126); Anion Gap 14.50 mmol/L (4.00-12.00); BUN/Creat Ratio 27.33 Ratio (12.00-20.00); Blood Urea Nitrogen 24.6 mg/dL (9.0-27.0); Calcium 9.4 mg/dL (8.7-10.3); Carbon Dioxide 24.5 mmol/L (21.6-31.8); Chloride 99 mmol/L (96-109); Ferritin 82.0 ng/mL (10.0-291.0); Globulin 2.3 g/dL (1.6-3.3); Glucose 132 mg/dL (70-110); Iron 40 UG/DL (50-170); Magnesium 1.9 mg/dL (1.5-2.4); Potassium 3.3 mmol/L (3.5-5.5); Sodium 138 mmol/L (135-145); Total Iron Binding Capacity 381 UG/DL (228-460); Total Protein 6.3 g/dL (6.2-8.2)
== END | disposition home or self-care (01) ==
LOC: RADMAMWWP 10:16
PROVIDERS: ATTEND Internal Medicine
DX: Z12.31 Encounter for screening mammogram for malignant neoplasm of breast (principal); D64.9 Anemia, unspecified; R92.333 Mammographic heterogeneous density, bilateral breasts; R92.1 Mammographic calcification found on diagnostic imaging of breast; N60.01 Solitary cyst of right breast; Z78.0 Asymptomatic menopausal state; Z85.3 Personal history of malignant neoplasm of breast
CPT/HCPCS: 77063; 77067; 80053; 82728; 83540; 83550; 83735; 84165; 85025; 86334

== ENCOUNTER → 2024-09-05 | Outpatient (CLI) | payer MEDICARE, OTHER ==
[2024-09-05 15:26] LABS: HCT 37.3 % (37.2-46.3); HGB 11.6 g/dL (12.0-15.0); MCH 30.1 pg (27.0-32.0); MCHC 31.1 g/dL (32.0-37.0); MCV 96.9 FL (80.0-97.0); NRBC Per 100 WBC 0 X 10*3/uL (0.00-0.01); Platelet Count 167 X 10*3/uL (140-440); RBC 3.85 X 10*6/uL (4.10-5.20); RDW 13.7 % (11.5-14.5); WBC 5.23 X 10*3/uL (4.50-10.00)
[2024-09-05 16:04] LABS: BUN/Creat Ratio 32.67 Ratio (12.00-20.00); Blood Urea Nitrogen 29.4 mg/dL (9.0-27.0); Glucose 101 mg/dL (70-110); Potassium 3.7 mmol/L (3.5-5.5); Sodium 141 mmol/L (135-145)
[2024-09-05 16:05] LABS: Anion Gap 11.40 mmol/L (4.00-12.00); Calcium 9.8 mg/dL (8.7-10.3); Carbon Dioxide 27.6 mmol/L (21.6-31.8); Chloride 102 mmol/L (96-109); Magnesium 2.2 mg/dL (1.5-2.4)
== END | disposition home or self-care (01) ==
LOC: LABWHC1 09:55
PROVIDERS: ATTEND Internal Medicine
DX: I10 Essential (primary) hypertension (principal)
CPT/HCPCS: 36415; 80048; 83735; 85027